=== PATIENT | female | born 1940 | race Caucasian/White ===

== ENCOUNTER 2020-05-15 13:13 | Outpatient (REF) | payer MEDICARE, OTHER, SELFPAY ==
[2020-05-15 16:48] LABS: MANUAL DIFF FLAG NO
[2020-05-15 17:06] LABS: Alanine Aminotransferase 44 U/L (0-31); Albumin Level 4.6 g/dL (3.5-5.0); Alkaline Phosphatase 58 U/L (39-117); Anion Gap 15 (12-20); Aspartate Amino Transferase 55 U/L (5-31); Bilirubin Total 0.5 mg/dL (0.0-1.0); Blood Urea Nitrogen 12 mg/dL (9-16); Calcium 9.4 mg/dL (8.4-10.2); Carbon Dioxide 29 mmol/L (22-29); Chloride 101 mmol/L (96-108); Estimated Glomerular Filt Rate > 60; Glucose Random 141 mg/dL (60-115); Potassium 4.5 mmol/l (3.3-5.1); Sodium 140 mmol/L (135-145); Total Protein 7.8 g/dL (6.5-8.0)
[2020-05-15 17:18] LABS: Basophils Absolute Auto 0.1 X10*3/uL (0.0-0.2); Basophils Percent Auto 0.5 % (0-2); Eosinophils Absolute Auto 0.1 X10*3/uL (0.0-0.4); Eosinophils Percent Auto 1.3 % (0-4); Hematocrit 40.2 % (37-47); Hemoglobin 12.9 g/dl (12.0-16.0); Imm Gran Abs Auto 0.03 X10*3/uL (0.00-0.03); Imm Gran Pct Auto 0.3 % (0.0-0.4); Lymphocytes Absolute Auto 2.3 X10*3/uL (1.2-4.9); Lymphocytes Percent Auto 25.4 % (20-40); Mean Corpuscular HGB Conc 32.1 g/dl (31.0-35.0); Mean Corpuscular Hemoglobin 29.4 pg (27.0-33.0); Mean Corpuscular Volume 91.6 fL (80-98); Monocytes Absolute Auto 0.7 X10*3/uL (0.1-1.2); Monocytes Percent Auto 7.7 % (2-11); Neutrophils Percent Auto 64.8 % (45-73); Platelet Count 243 X10*3/uL (160-400); Red Blood Count 4.39 X10*6/uL (4.20-5.50); Red Cell Distribution Width 14.2 % (11.0-16.0); White Blood Count 9.2 X10*3/uL (4.8-10.8)
[2020-05-15 17:32] LABS: Estimated Average Glucose 174 mg/dL; Hemoglobin A1c % 7.7 %
== END 2020-05-15 13:14 | disposition home or self-care (01) ==
LOC: HO.HMGCLDS 13:13
PROVIDERS: PCP Internal Medicine; Visit Provider Internal Medicine
DX: E11.22 Type 2 diabetes mellitus with diabetic chronic kidney disease (principal); I12.9 Hypertensive chronic kidney disease with stage 1 through stage 4 chronic kidney disease, or unspecified chronic kidney disease; N18.9 Chronic kidney disease, unspecified
CPT/HCPCS: 36415; 80053; 83036; 85025

== ENCOUNTER → 2020-07-09 09:44 | Outpatient (BNVA) | payer MEDICARE, OTHER, SELFPAY | PROVIDERS: PCP Internal Medicine; Visit Provider Surgery | DX: Z85.3 Personal history of malignant neoplasm of breast (principal) | CPT/HCPCS: 99212 ==

== ENCOUNTER → 2020-08-08 10:50 | Outpatient (BNVA) | payer MEDICARE, OTHER, SELFPAY | PROVIDERS: PCP Internal Medicine; Visit Provider Internal Medicine | DX: J30.9 Allergic rhinitis, unspecified (principal); J44.9 Chronic obstructive pulmonary disease, unspecified | CPT/HCPCS: 99212 ==

== ENCOUNTER 2020-08-15 11:10 | Outpatient (REF) | payer MEDICARE, OTHER, SELFPAY ==
[2020-08-15 13:55] LABS: MANUAL DIFF FLAG NO
[2020-08-15 14:00] LABS: Basophils Absolute Auto 0.1 X10*3/uL (0.0-0.2); Basophils Percent Auto 0.7 % (0-2); Eosinophils Absolute Auto 0.3 X10*3/uL (0.0-0.4); Eosinophils Percent Auto 3.6 % (0-4); Hematocrit 36.7 % (37-47); Hemoglobin 11.6 g/dl (12.0-16.0); Imm Gran Abs Auto 0.03 X10*3/uL (0.00-0.03); Imm Gran Pct Auto 0.4 % (0.0-0.4); Lymphocytes Absolute Auto 2.3 X10*3/uL (1.2-4.9); Lymphocytes Percent Auto 31.6 % (20-40); Mean Corpuscular HGB Conc 31.6 g/dl (31.0-35.0); Mean Corpuscular Hemoglobin 27.7 pg (27.0-33.0); Mean Corpuscular Volume 87.6 fL (80-98); Mean Platelet Volume 11.2 fL (9.4-12.3); Monocytes Absolute Auto 0.5 X10*3/uL (0.1-1.2); Monocytes Percent Auto 7.2 % (2-11); Neutrophils Percent Auto 56.5 % (45-73); Platelet Count 216 X10*3/uL (160-400); Red Blood Count 4.19 X10*6/uL (4.20-5.50); White Blood Count 7.1 X10*3/uL (4.8-10.8)
[2020-08-15 14:10] LABS: Estimated Average Glucose 192 mg/dL; Hemoglobin A1c % 8.3 %
[2020-08-15 14:23] LABS: Alanine Aminotransferase 36 U/L (0-31); Albumin Level 4.4 g/dL (3.5-5.0); Alkaline Phosphatase 58 U/L (39-117); Anion Gap 13 (12-20); Aspartate Amino Transferase 50 U/L (5-31); Bilirubin Total 0.5 mg/dL (0.0-1.0); Blood Urea Nitrogen 15 mg/dL (9-16); Calcium 9.5 mg/dL (8.4-10.2); Carbon Dioxide 30 mmol/L (22-29); Chloride 100 mmol/L (96-108); Estimated Glomerular Filt Rate > 60; Glucose Random 188 mg/dL (60-115); Potassium 4.5 mmol/L (3.3-5.1); Sodium 138 mmol/L (135-145); Total Protein 7.5 g/dL (6.5-8.0)
[2020-08-15 14:38] LABS: Creatinine Urine 46.61 mg/dL; Microalbum/Creatinine Ratio Ur 338.9 ug/mg cr
[2020-08-15 14:46] LABS: Free T4 (Free Thyroxine) 0.98 ng/dL (0.71-1.85); Thyroid Stimulating Hormone 1.55 uIU/mL (0.32-4.0)
== END 2020-08-15 11:11 | disposition home or self-care (01) ==
LOC: HO.HMGCLDS 11:10
PROVIDERS: PCP Internal Medicine; Visit Provider Internal Medicine
DX: E11.9 Type 2 diabetes mellitus without complications (principal); E03.9 Hypothyroidism, unspecified; I10 Essential (primary) hypertension
CPT/HCPCS: 36415; 80053; 82043; 83036; 84439; 84443; 85025

== ENCOUNTER 2020-12-11 15:08 | Outpatient (REF) | payer MEDICARE, OTHER, SELFPAY ==
--- NOTE | ~2020-12-11 | MM_ITS ---
EXAMINATION: MM SCREENING DIGITAL BREAST TOMOSYNTHESIS, BILATERAL CLINICAL INFORMATION: Screening. Asymptomatic. History of right breast cancer. COMPARISON: Mammography: 12/08/2019 and studies dating back to 11/30/2014. TECHNIQUE: Digital breast tomosynthesis is performed in both the craniocaudal and mediolateral oblique views along with computer-aided detection (CAD). Synthesized 2D images are generated from the tomosynthesis. FINDINGS: There are scattered areas of fibroglandular density (ACR BI-RADS breast composition Category b). There are no new significant masses, abnormal calcifications, or other abnormalities. Postsurgical change from previous right breast lumpectomy and axillary dissection again seen. No new abnormal dominant masses. Stable circumscribed densities seen about the anterior aspect of the left breast. MM/MM tomosynthesis screening BI IMPRESSION: There are no significant changes from prior study. ASSESSMENT: BI-RADS 2: Benign. RECOMMENDATION: Routine annual mammography screening. This patient's information was entered into a reminder system with a target due date for their next mammogram.
== END 2020-12-11 15:09 | disposition home or self-care (01) ==
LOC: HO.MAMMO 15:08
PROVIDERS: PCP Internal Medicine; Visit Provider Surgery
DX: Z12.31 Encounter for screening mammogram for malignant neoplasm of breast (principal)
CPT/HCPCS: 77063; 77067

== ENCOUNTER 2020-12-12 11:15 | Outpatient (REF) | payer MEDICARE, OTHER, SELFPAY ==
[2020-12-12 14:30] LABS: Anion Gap 13 (12-20); Blood Urea Nitrogen 11 mg/dL (9-16); Calcium 9.3 mg/dL (8.4-10.2); Carbon Dioxide 27 mmol/L (22-29); Chloride 103 mmol/L (96-108); Estimated Glomerular Filt Rate > 60; Glucose Random 210 mg/dL (60-115); Potassium 4.1 mmol/L (3.3-5.1); Sodium 139 mmol/L (135-145)
[2020-12-12 14:38] LABS: Estimated Average Glucose 212 mg/dL
== END 2020-12-12 11:16 | disposition home or self-care (01) ==
LOC: HO.HMGCLDS 11:15
PROVIDERS: PCP Internal Medicine; Visit Provider Internal Medicine
DX: E11.9 Type 2 diabetes mellitus without complications (principal); I10 Essential (primary) hypertension
CPT/HCPCS: 36415; 80048; 83036

== ENCOUNTER → 2020-12-31 09:43 | Outpatient (BNVA) | payer MEDICARE, OTHER, SELFPAY | PROVIDERS: PCP Internal Medicine; Referring Provider Internal Medicine; Visit Provider Surgery | DX: Z85.3 Personal history of malignant neoplasm of breast (principal); Z87.891 Personal history of nicotine dependence | CPT/HCPCS: 99212 ==

== ENCOUNTER → 2021-01-30 10:11 | Outpatient (BNVA) | payer MEDICARE, OTHER, SELFPAY | PROVIDERS: PCP Internal Medicine; Visit Provider Internal Medicine | DX: J44.9 Chronic obstructive pulmonary disease, unspecified (principal); J30.9 Allergic rhinitis, unspecified; Z79.899 Other long term (current) drug therapy | CPT/HCPCS: 99212 ==

== ENCOUNTER 2021-03-13 09:57 | Outpatient (REF) | payer MEDICARE, OTHER, SELFPAY ==
[2021-03-13 11:26] LABS: MANUAL DIFF FLAG NO
[2021-03-13 11:37] LABS: Basophils Percent Auto 0.5 % (0-2); Eosinophils Absolute Auto 0.3 X10*3/uL (0.0-0.4); Eosinophils Percent Auto 4.1 % (0-4); Hematocrit 32.5 % (37-47); Hemoglobin 9.8 g/dl (12.0-16.0); Imm Gran Abs Auto 0.02 X10*3/uL (0.00-0.03); Imm Gran Pct Auto 0.3 % (0.0-0.4); Lymphocytes Absolute Auto 1.8 X10*3/uL (1.2-4.9); Lymphocytes Percent Auto 26.4 % (20-40); Mean Corpuscular HGB Conc 30.2 g/dl (31.0-35.0); Mean Corpuscular Hemoglobin 24.5 pg (27.0-33.0); Mean Corpuscular Volume 81.3 fL (80-98); Mean Platelet Volume 10.8 fL (9.4-12.3); Monocytes Absolute Auto 0.6 X10*3/uL (0.1-1.2); Monocytes Percent Auto 8.4 % (2-11); Neutrophils Percent Auto 60.3 % (45-73); Platelet Count 214 X10*3/uL (160-400); Red Cell Distribution Width 15.9 % (11.0-16.0); White Blood Count 6.6 X10*3/uL (4.8-10.8)
[2021-03-13 11:49] LABS: Estimated Average Glucose 174 mg/dL; Hemoglobin A1c % 7.7 %
[2021-03-13 12:00] LABS: Anion Gap 13 (12-20); Blood Urea Nitrogen 9 mg/dL (9-16); Calcium 9.4 mg/dL (8.4-10.2); Carbon Dioxide 27 mmol/L (22-29); Chloride 102 mmol/L (96-108); Estimated Glomerular Filt Rate > 60; Glucose Random 173 mg/dL (60-115); Potassium 4.2 mmol/L (3.3-5.1); Sodium 138 mmol/L (135-145)
[2021-03-13 12:11] LABS: Thyroid Stimulating Hormone 1.44 uIU/mL (0.32-4.0)
== END 2021-03-13 09:58 | disposition home or self-care (01) ==
LOC: HO.HMGCLDS 09:57
PROVIDERS: PCP Internal Medicine; Visit Provider Internal Medicine
DX: E11.9 Type 2 diabetes mellitus without complications (principal); I10 Essential (primary) hypertension; E03.9 Hypothyroidism, unspecified
CPT/HCPCS: 36415; 80048; 83036; 84439; 84443; 85025

== ENCOUNTER 2021-05-22 10:44 | Outpatient (REF) | payer MEDICARE, OTHER, SELFPAY ==
[2021-05-22 13:38] LABS: MANUAL DIFF FLAG NO
[2021-05-22 13:42] LABS: Basophils Absolute Auto 0.1 X10*3/uL (0.0-0.2); Basophils Percent Auto 0.8 % (0-2); Eosinophils Absolute Auto 0.2 X10*3/uL (0.0-0.4); Eosinophils Percent Auto 2.6 % (0-4); Hematocrit 31.3 % (37.0-47.0); Hemoglobin 9.2 g/dl (12.0-16.0); Imm Gran Abs Auto 0.02 X10*3/uL (0.00-0.03); Imm Gran Pct Auto 0.3 % (0.0-0.4); Lymphocytes Absolute Auto 1.8 X10*3/uL (1.2-4.9); Lymphocytes Percent Auto 23.8 % (20-40); Mean Corpuscular HGB Conc 29.4 g/dl (31.0-35.0); Mean Corpuscular Hemoglobin 22.9 pg (27.0-33.0); Mean Corpuscular Volume 77.9 fL (80.0-98.0); Mean Platelet Volume 11.5 fL (9.4-12.3); Monocytes Absolute Auto 0.6 X10*3/uL (0.1-1.2); Monocytes Percent Auto 8.2 % (2-11); Neutrophils Absolute Auto 4.7 x10*3/uL (2.0-8.3); Neutrophils Percent Auto 64.3 % (45-73); Platelet Count 239 X10*3/uL (160-400); Red Blood Count 4.02 X10*6/uL (4.20-5.50); Red Cell Distribution Width 15.9 % (11.0-16.0); White Blood Count 7.3 X10*3/uL (4.8-10.8)
[2021-05-22 14:22] LABS: Creatinine Urine 150.24 mg/dL; Microalbum/Creatinine Ratio Ur 85.1 ug/mg cr
[2021-05-22 14:30] LABS: Alanine Aminotransferase 33 U/L (0-31); Albumin Level 4.4 g/dL (3.5-5.0); Alkaline Phosphatase 55 U/L (39-117); Anion Gap 13 (12-20); Aspartate Amino Transferase 40 U/L (5-31); Bilirubin Total 0.8 mg/dL (0.0-1.0); Blood Urea Nitrogen 15 mg/dL (9-16); Chloride 102 mmol/L (96-108); Estimated Glomerular Filt Rate > 60; Glucose Random 206 mg/dL (60-115); Iron 22 mcg/dL (30-160); Percent Iron Saturation 5 % (15-50); Potassium 3.9 mmol/L (3.3-5.1); Sodium 138 mmol/L (135-145); Total Iron Binding Capacity 486 mcg/dL (228-428); Total Protein 7.5 g/dL (6.5-8.0); Unsaturated Iron Binding 464 ug/dL
[2021-05-22 14:37] LABS: Carbon Dioxide 27 mmol/L (22-29)
[2021-05-22 14:49] LABS: Estimated Average Glucose 192 mg/dL; Hemoglobin A1c % 8.3 %
[2021-05-22 15:06] LABS: Vitamin B12 498 pg/mL (200-900)
== END 2021-05-22 10:45 | disposition home or self-care (01) ==
LOC: HO.HMGCLDS 10:44
PROVIDERS: PCP Internal Medicine; Visit Provider Internal Medicine
DX: E11.9 Type 2 diabetes mellitus without complications (principal); D64.9 Anemia, unspecified; J44.9 Chronic obstructive pulmonary disease, unspecified; R53.83 Other fatigue
CPT/HCPCS: 36415; 80053; 82043; 82607; 83036; 83540; 85025; 86140

== ENCOUNTER 2021-05-27 11:20 | Outpatient (REF) | payer MEDICARE, OTHER, SELFPAY ==
--- NOTE | ~2021-05-27 | XR_ITS ---
EXAMINATION: XR CHEST CLINICAL INFORMATION: COPD, shortness of breath, cough for 2 weeks. Fatigue on exertion. COMPARISON: Chest radiographs 11/28/2019, 07/11/2019, CT chest noncontrast 12/04/2019 TECHNIQUE: 2 views of the chest were obtained. FINDINGS: Heart is within limits of normal size. The vascularity is normal. There is no airspace consolidation or groundglass opacity or effusion. Chronic pleural-parenchymal scarring is again noted anterior lateral mid right chest similar to prior exams. No interval pleural reaction. The hilar and mediastinal contours are normal. No acute bony abnormality. Surgical clips right axilla are again seen. XR/XR chest 2V IMPRESSION: No acute intrathoracic disease.
== END 2021-05-27 11:21 | disposition home or self-care (01) ==
LOC: HO.XRAY 11:20
PROVIDERS: Visit Provider Internal Medicine
DX: Z13.89 Encounter for screening for other disorder (principal)
CPT/HCPCS: 71046

== ENCOUNTER 2021-05-27 13:54 | Outpatient (REF) | payer MEDICARE, OTHER, SELFPAY ==
[2021-05-27 14:38] LABS: Influenza A PCR NEGATIVE (Negative); Influenza B PCR NEGATIVE (Negative); Resp Syncy Virus RNA Qual PCR NEGATIVE (Negative); SARS COV2 PCR INHOUSE NEGATIVE (Negative)
== END 2021-05-27 13:55 | disposition home or self-care (01) ==
LOC: HO.LNP 13:54
PROVIDERS: Visit Provider Internal Medicine
DX: Z20.822 Contact with and (suspected) exposure to COVID-19 (principal); R06.02 Shortness of breath; R05.9 Cough, unspecified
CPT/HCPCS: 0241U; 71046

== ENCOUNTER → 2021-07-03 08:39 | Outpatient (BNVA) | payer MEDICARE, OTHER, SELFPAY | PROVIDERS: PCP Internal Medicine; Referring Provider Internal Medicine; Visit Provider Surgery | DX: Z85.3 Personal history of malignant neoplasm of breast (principal) | CPT/HCPCS: 99212 ==

== ENCOUNTER → 2021-07-14 10:13 | Outpatient (BNV) | payer MEDICARE, OTHER, SELFPAY | PROVIDERS: PCP Internal Medicine; Visit Provider Internal Medicine Medical Oncology | DX: Z85.3 Personal history of malignant neoplasm of breast (principal); M85.80 Other specified disorders of bone density and structure, unspecified site; D64.9 Anemia, unspecified; Z92.3 Personal history of irradiation | CPT/HCPCS: 99213; 99214 ==

== ENCOUNTER 2021-07-16 11:37 | Outpatient (REF) | payer MEDICARE, OTHER, SELFPAY | END 2021-07-16 11:38 | disposition home or self-care (01) | LOC: HO.MDS 11:37 | PROVIDERS: PCP Internal Medicine; Visit Provider Internal Medicine Medical Oncology | DX: D50.9 Iron deficiency anemia, unspecified (principal) | CPT/HCPCS: 96365; J2916 ==

== ENCOUNTER 2021-07-24 10:00 | Outpatient (REF) | payer MEDICARE, OTHER, SELFPAY | END 2021-07-24 10:01 | disposition home or self-care (01) | LOC: HO.MDS 10:00 | PROVIDERS: PCP Internal Medicine; Visit Provider Internal Medicine Medical Oncology | DX: D50.9 Iron deficiency anemia, unspecified (principal); Z85.3 Personal history of malignant neoplasm of breast | CPT/HCPCS: 96365; J2916 ==

== ENCOUNTER → 2021-07-29 09:53 | Outpatient (BNVA) | payer MEDICARE, OTHER, SELFPAY | PROVIDERS: PCP Internal Medicine; Visit Provider Internal Medicine | DX: J44.9 Chronic obstructive pulmonary disease, unspecified (principal); J30.9 Allergic rhinitis, unspecified | CPT/HCPCS: 99212 ==

== ENCOUNTER 2021-07-31 09:43 | Outpatient (REF) | payer MEDICARE, OTHER, SELFPAY | END 2021-07-31 09:44 | disposition home or self-care (01) | LOC: HO.MDS 09:43 | PROVIDERS: PCP Internal Medicine; Visit Provider Internal Medicine Medical Oncology | DX: D50.9 Iron deficiency anemia, unspecified (principal) | CPT/HCPCS: 96365; J2916 ==

== ENCOUNTER 2021-08-07 12:19 | Outpatient (REF) | payer MEDICARE, OTHER, SELFPAY ==
[2021-08-07 14:21] LABS: Basophils Percent Auto 0.3 % (0-2); Eosinophils Percent Auto 0.1 % (0-4); Hematocrit 36.1 % (37.0-47.0); Hemoglobin 10.9 g/dl (12.0-16.0); Imm Gran Abs Auto 0.03 X10*3/uL (0.00-0.03); Imm Gran Pct Auto 0.4 % (0.0-0.4); Lymphocytes Absolute Auto 0.5 X10*3/uL (1.2-4.9); Lymphocytes Percent Auto 6.4 % (20-40); MANUAL DIFF FLAG SCAN; Mean Corpuscular HGB Conc 30.2 g/dl (31.0-35.0); Mean Corpuscular Hemoglobin 24.4 pg (27.0-33.0); Mean Corpuscular Volume 80.9 fL (80.0-98.0); Mean Platelet Volume 10.2 fL (9.4-12.3); Monocytes Absolute Auto 0.1 X10*3/uL (0.1-1.2); Monocytes Percent Auto 0.7 % (2-11); Neutrophils Absolute Auto 6.5 x10*3/uL (2.0-8.3); Neutrophils Percent Auto 92.1 % (45-73); Platelet Count 178 X10*3/uL (160-400); Red Blood Count 4.46 X10*6/uL (4.20-5.50); SCAN SMEAR FLAG 1
[2021-08-07 14:43] LABS: SLIDE REVIEW VERIFIED
== END 2021-08-07 12:20 | disposition home or self-care (01) ==
LOC: HO.MDS 12:19
PROVIDERS: PCP Internal Medicine; Visit Provider Internal Medicine Medical Oncology
DX: D50.9 Iron deficiency anemia, unspecified (principal)
CPT/HCPCS: 36415; 85025; 96365; J2916

== ENCOUNTER 2021-08-14 13:08 | Outpatient (REF) | payer MEDICARE, OTHER, SELFPAY | END 2021-08-14 13:09 | disposition home or self-care (01) | LOC: HO.MDS 13:08 | PROVIDERS: PCP Internal Medicine; Visit Provider Internal Medicine Medical Oncology | DX: D50.9 Iron deficiency anemia, unspecified (principal) | CPT/HCPCS: 96365; J2916 ==

== ENCOUNTER 2021-08-20 09:11 | Day surgery (SDC) | payer MEDICARE, OTHER, SELFPAY ==
[2021-08-15 10:01] VITALS: BMI 33.0
[2021-08-20 09:31] VITALS: BP 155/75; PULSE 92; RESP 16; TEMP 36.9; O2SAT 96
[2021-08-20 09:46] LABS: Glucose, Whole Blood 182 mg/dL (60-115)
--- NOTE | 2021-08-20 10:23 | HO.ANESPROP2 ---
HPI - Anesthesia Eval Consult details Narrative: 80 yo female patient for EGD, Colonoscopy PMF Active Problems Active Problems: All Active Problems (Updated 08/15/21 @ 10:05 by Kennedi Osborne RN) COPD (chronic obstructive pulmonary disease) (Acute) Allergic rhinitis (Acute) History of right breast cancer (Acute) Increased BMI Past Medical History Medical History Allergic rhinitis COPD (chronic obstructive pulmonary disease) COVID-19 vaccine series completed Diabetes Elevated cholesterol GERD (gastroesophageal reflux disease) History of right breast cancer HTN (hypertension) Hx of nephrolithotomy with removal of calculi Hypothyroid Iron deficiency anemia Family History Family History Father Lung cancer Mother Cancer of unknown origin Sister Lung cancer, Onset Age: 57 Sister Melanoma, Onset Age: 44 Sister Lung cancer, Onset Age: 70 Brother Lung cancer Brother Lung cancer Son Melanoma Family history of problems with anesthesia: No Surgical History Surgical History History of cholecystectomy (1999) History of colonoscopy (2008) History of esophagogastroduodenoscopy (EGD) History of excision of lesion (01/2001) History of left breast biopsy (1992) History of lumpectomy of right breast (07/01/07) History of vocal cord polypectomy (08/10/12) Hx of cataract extraction Hx of cystoscopy Hx of right breast biopsy (10/27/03) History of Problems with Anesthesia: No Social History Social History Are you a primary post anesthesia care unit nurse to a significant other at home: No Do you presently have visiting nurse or other home services: No Alcohol intake: never Patient Tobacco Use Status: Former Tobacco user Tobacco use type: Cigarette Use of substances other than those prescribed or required for medical reasons: No Have you been hit, kicked, punched, or otherwise hurt by someone within the past year? If so, by whom?: No Are you DNR?: Yes Advance Directives: No Advance Directives Information Provided: Yes Advance Directives on File: No Recently lost weight without trying: No Eating poorly because of decreased appetite: No Nutrition Risks: Surgical patient >75years Poor oral hygiene: No (upper & lower full denture) Meds Allergies Allergy/AdvReac Type Severity Reaction Status Date / Time baclofen Allergy Intermediate rash/swelli Verified 08/15/21 10:01 ng beet Allergy Intermediate tongue Verified 08/15/21 10:01 swelling celecoxib [From Celebrex] Allergy Intermediate rash/swelli Verified 08/15/21 10:01 ng Home Medications Medication Instructions Recorded Confirmed Last Taken Type fexofenadine 180 mg tablet 180 mg PO DAILY 07/09/20 08/15/21 Unknown History (Destinee Allergy) levothyroxine 75 mcg tablet 75 mcg PO DAILY 07/09/20 08/15/21 08/20/21 History amlodipine 5 mg tablet 5 mg PO DAILY tab 08/08/20 08/15/21 08/20/21 History gabapentin 300 mg capsule 300 mg PO BID cap 08/08/20 08/15/21 08/20/21 History glipizide 2.5 mg tablet, extended 5 mg PO BID tab 08/08/20 08/15/21 Unknown History release 24 hr metoprolol succinate 50 mg 50 mg PO DAILY tab 08/08/20 08/15/21 08/20/21 History tablet,extended release 24 hr omeprazole 20 mg capsule,delayed 20 mg PO DAILY cap 08/08/20 08/15/21 Unknown History release simvastatin 20 mg tablet 20 mg PO DAILY tab 08/08/20 08/15/21 Unknown History budesonide 160 mcg-glycopyr 9 2 inh INHALATION QAM 08/15/21 08/15/21 08/20/21 History mcg-formot 4.8 mcg/actuation HFA inhaler (Breztri Aerosphere) irbesartan 150 mg tablet 1 tab PO DAILY 08/15/21 08/15/21 Unknown History montelukast 10 mg tablet 10 mg PO BEDTIME 08/15/21 08/15/21 Unknown History Exam Exam Date and Time: August 20, 2021 1023 Height,Weight and Vital Signs: Height 5 ft 2 in Weight 82.1 kg Last Vital Signs Temp 98.4 F 08/20/21 09:31 Pulse 92 08/20/21 09:31 Resp 16 08/20/21 09:31 BP 155/75 H 08/20/21 09:31 Pulse Ox 96 08/20/21 09:31 Pertinent Lab Results Pertinent Lab Results: Laboratory Tests 08/20/21 09:36 POC Glucose 182 H Airway Mallampati Class: II TM Dist: >3cm Neck ROM: Full Denture: Upper and Lower Heart: RRR Lungs: CTAB Assessment and Plan Assessment Anesthesia Assessment: Anesthesia Plan Discussed and Chart Reviewed Final Anesthetic Review Family History of Problems with Anesthesia: No History of Problems with Anesthesia: No NPO: Yes ASA Class: III Final Preanesthetic Review: No Changes in Pt Med Stat, Meds/Allgs Chart Reviewed, Consent Obtained/Reviewed and Anes Risks/Benef Reviewed Patient Risk: Intermediate Procedure Risk: Low Assessment/Block/Sedation in SS: Assess/Block/Sedation-SS Anesthetic Plan Anesthetic Plan: MAC: Disposition: Standard PACU
[2021-08-20 11:56] VITALS: BP 117/60; PULSE 84; RESP 18; TEMP 36.1; O2SAT 93
--- NOTE | 2021-08-20 11:59 | PM.OP ---
Brief Operative Note Date of Service: 08/20/21 Pre-op diagnosis: Iron deficiency anemia Post-op diagnosis: other (Hiatal hernia, R/O celiac disease, Colon polyps) Procedure: EGD with biopsy, Colonoscopy to cecum and TI with hot snare polypectomy at 30cm with Resolution clips x 3, and bx/ removal of polyp Surgeon: Aaron Sotll Anesthesia: MAC Was an Wood Hacker used for this Procedure?: No Estimated blood loss (mL): 2.0 Pathology: other (A. Descending duodenum B. Cecal polyp C. Polyp at 30cm) Condition: stable Disposition: PACU
[2021-08-20 12:11] VITALS: BP 144/68; PULSE 71; RESP 18; TEMP 36.1; O2SAT 94
--- NOTE | 2021-08-20 12:56 | OP_ITS ---
SURGEON: Aaron Stoll MD INDICATIONS: The patient presents for evaluation of iron-deficiency anemia. Full consent was obtained from her for both procedures, including risks of bleeding and perforation. PREOPERATIVE DIAGNOSIS: Iron deficiency anemia. POSTOPERATIVE DIAGNOSIS: PROCEDURE PERFORMED: Esophagogastroduodenoscopy with biopsies, and colonoscopy to the cecum terminal ileum with hot snare polypectomy. ESTIMATED BLOOD LOSS: COMPLICATIONS: ANESTHESIA: Monitored anesthesia care. ASSISTANTS: SPECIMENS: POSTOPERATIVE DIAGNOSES: Iron deficiency anemia, rule out celiac disease, small hiatal hernia, colon polyp, diverticulosis, and internal hemorrhoids. DESCRIPTION OF PROCEDURE: The patient was placed in the left lateral decubitus position. The Olympus video gastroscope was passed in the posterior oropharynx and upper esophagus under direct vision. The scope was passed slowly to the distal esophagus. The gastroesophageal junction appeared normal at 35 cm. There was no sign of any esophagitis nor mass. The scope entered into the stomach. There was a small hiatal hernia. The scope was advanced to the pylorus and the duodenum was cannulated to the descending portion. The duodenum including the bulb appeared normal without mass or ulceration. Biopsies were obtained from the 2nd and 3rd portions of duodenum to rule out celiac disease. The scope was withdrawn back in the stomach. The gastric antrum and body appeared normal with good peristalsis. The scope was retroflexed visualizing the proximal stomach carefully, which appeared normal, without any sign of mass or ulceration. Scope was straightened and withdrawn back into the esophagus. The esophageal mucosa appeared normal. Scope was withdrawn from the patient. She was turned around for colonoscopy. The digital rectal exam revealed no abnormalities. The Olympus video pediatric colonoscope was entered into the rectum and advanced easily to the cecum. Once in the cecum I did identify a normal-appearing cecal pouch other than a 3 or 4 mm polyp, which was biopsied and completely removed with the cold biopsy forceps. The terminal ileum was cannulated and appeared normal. The scope was withdrawn back in the cecum. The cecum otherwise appeared normal. The scope was then slowly withdrawn assessing all mucosal surfaces carefully. Preparation for the most part was very good, but there was some liquid stool and mucus in the ascending colon that was irrigated and suctioned away as best as possible. I did not visualize any underlying mucosal abnormalities such as colitis, angiodysplasias, nor polyps. The only polyp I visualized was in the sigmoid colon at 30 cm. This was approximately 10 mm in size on a short stalk and was removed by hot snare polypectomy. This was recovered by suction. The polypectomy site did not reveal any residual polyp, but did have some persistent oozing that was controlled with 3 Resolution Clips with good deployment and ultimately good hemostasis. There was a mild amount of sigmoid diverticulosis. In the rectum, scope was retroflexed visualizing some small internal hemorrhoids, but no other pathology. The rectal mucosa appeared normal. The scope was straightened and withdrawn from the patient. She tolerated the procedure well and was returned to recovery area in stable condition. IMPRESSION: 1. Colon polyp, status post hot snare polypectomy. 2. Cecal polyp, status post biopsy removal. 3. Hiatal hernia. 4. Rule out celiac disease. 5. Diverticulosis. 6. Internal hemorrhoids. PLAN: The results of the pathology will be checked. At this point, this would not account for her anemia and she may need further evaluation with a small bowel video capsule study. She will continue oral iron as best as possible and receive IV iron as needed with Dr. Guzman. I will be in touch with her in regard to office followup and setting up a small bowel video capsule study as needed. She was advised to stay off all aspirin and NSAIDs long-term. This has been discussed with her . MD GOLDEN Borja/KEEGAN / [id number] MTDD
== END 2021-08-20 12:39 | disposition home or self-care (01) ==
PROVIDERS: PCP Internal Medicine; Visit Provider Internal Medicine
PROC: (CPT 45385; principal; 2021-08-20 10:40)
DX: D50.9 Iron deficiency anemia, unspecified (principal); D12.5 Benign neoplasm of sigmoid colon; K63.5 Polyp of colon; K57.30 Diverticulosis of large intestine without perforation or abscess without bleeding; K64.8 Other hemorrhoids; K21.9 Gastro-esophageal reflux disease without esophagitis; K44.9 Diaphragmatic hernia without obstruction or gangrene; J44.9 Chronic obstructive pulmonary disease, unspecified; M85.80 Other specified disorders of bone density and structure, unspecified site; I10 Essential (primary) hypertension; E11.9 Type 2 diabetes mellitus without complications; E03.9 Hypothyroidism, unspecified; E78.5 Hyperlipidemia, unspecified; Z79.84 Long term (current) use of oral hypoglycemic drugs; Z79.51 Long term (current) use of inhaled steroids; Z79.899 Other long term (current) drug therapy; Z88.8 Allergy status to other drugs, medicaments and biological substances; Z85.3 Personal history of malignant neoplasm of breast; Z87.442 Personal history of urinary calculi; Z90.49 Acquired absence of other specified parts of digestive tract; Z87.891 Personal history of nicotine dependence
CPT/HCPCS: 45385; 45380; 43239; 82947; 88305

== ENCOUNTER 2021-08-21 13:12 | Outpatient (REF) | payer MEDICARE, OTHER, SELFPAY | END 2021-08-21 13:13 | disposition home or self-care (01) | LOC: HO.MDS 13:12 | PROVIDERS: PCP Internal Medicine; Visit Provider Internal Medicine Medical Oncology | DX: D50.9 Iron deficiency anemia, unspecified (principal) | CPT/HCPCS: 96365; J2916 ==

== ENCOUNTER 2021-08-28 13:12 | Outpatient (REF) | payer MEDICARE, OTHER, SELFPAY | END 2021-08-28 13:13 | disposition home or self-care (01) | LOC: HO.MDS 13:12 | PROVIDERS: PCP Internal Medicine; Visit Provider Internal Medicine Medical Oncology | DX: D50.9 Iron deficiency anemia, unspecified (principal) | CPT/HCPCS: 96365; J2916 ==

== ENCOUNTER 2021-09-04 13:02 | Outpatient (REF) | payer MEDICARE, OTHER, SELFPAY ==
[2021-09-04 14:13] LABS: MANUAL DIFF FLAG NO
[2021-09-04 14:16] LABS: Basophils Percent Auto 0.6 % (0-2); Eosinophils Absolute Auto 0.3 X10*3/uL (0.0-0.4); Eosinophils Percent Auto 3.6 % (0-4); Hematocrit 39.9 % (37.0-47.0); Hemoglobin 12.4 g/dl (12.0-16.0); Imm Gran Abs Auto 0.02 X10*3/uL (0.00-0.03); Imm Gran Pct Auto 0.3 % (0.0-0.4); Lymphocytes Percent Auto 29.3 % (20-40); Mean Corpuscular HGB Conc 31.1 g/dl (31.0-35.0); Mean Corpuscular Hemoglobin 27.4 pg (27.0-33.0); Mean Corpuscular Volume 88.3 fL (80.0-98.0); Mean Platelet Volume 10.5 fL (9.4-12.3); Monocytes Absolute Auto 0.4 X10*3/uL (0.1-1.2); Monocytes Percent Auto 6.3 % (2-11); Neutrophils Absolute Auto 4.2 x10*3/uL (2.0-8.3); Neutrophils Percent Auto 59.9 % (45-73); Platelet Count 162 X10*3/uL (160-400); Red Blood Count 4.52 X10*6/uL (4.20-5.50); Red Cell Distribution Width 21.7 % (11.0-16.0); White Blood Count 6.9 X10*3/uL (4.8-10.8)
== END 2021-09-04 13:03 | disposition home or self-care (01) ==
LOC: HO.MDS 13:02
PROVIDERS: PCP Internal Medicine; Visit Provider Internal Medicine Medical Oncology
DX: D50.9 Iron deficiency anemia, unspecified (principal)
CPT/HCPCS: 36415; 85025; 96365; J2916

== ENCOUNTER 2021-10-01 13:20 | Outpatient (REF) | payer MEDICARE, OTHER, SELFPAY ==
[2021-10-01 16:33] LABS: MANUAL DIFF FLAG NO
[2021-10-01 16:39] LABS: Basophils Absolute Auto 0.1 X10*3/uL (0.0-0.2); Basophils Percent Auto 0.8 % (0-2); Eosinophils Absolute Auto 0.3 X10*3/uL (0.0-0.4); Eosinophils Percent Auto 3.4 % (0-4); Hematocrit 40.9 % (37.0-47.0); Hemoglobin 13.4 g/dl (12.0-16.0); Imm Gran Abs Auto 0.01 X10*3/uL (0.00-0.03); Imm Gran Pct Auto 0.1 % (0.0-0.4); Lymphocytes Absolute Auto 2.1 X10*3/uL (1.2-4.9); Mean Corpuscular HGB Conc 32.8 g/dl (31.0-35.0); Mean Corpuscular Hemoglobin 29.1 pg (27.0-33.0); Mean Corpuscular Volume 88.9 fL (80.0-98.0); Mean Platelet Volume 11.2 fL (9.4-12.3); Monocytes Absolute Auto 0.6 X10*3/uL (0.1-1.2); Monocytes Percent Auto 7.5 % (2-11); Neutrophils Absolute Auto 4.8 x10*3/uL (2.0-8.3); Neutrophils Percent Auto 61.2 % (45-73); Platelet Count 204 X10*3/uL (160-400); Red Cell Distribution Width 18.6 % (11.0-16.0); White Blood Count 7.9 X10*3/uL (4.8-10.8)
[2021-10-01 16:51] LABS: Iron 50 mcg/dL (30-160); Percent Iron Saturation 14 % (15-50); Total Iron Binding Capacity 348 mcg/dL (228-428); Unsaturated Iron Binding 298 ug/dL
[2021-10-01 17:14] LABS: Ferritin 65 ng/mL (10-250)
== END 2021-10-01 13:21 | disposition home or self-care (01) ==
LOC: HO.HMGCLDS 13:20
PROVIDERS: PCP Internal Medicine; Visit Provider Internal Medicine
DX: D50.9 Iron deficiency anemia, unspecified (principal)
CPT/HCPCS: 36415; 82728; 83540; 85025

== ENCOUNTER 2021-10-28 09:23 | Outpatient (REF) | payer MEDICARE, OTHER, SELFPAY ==
[2021-10-28 11:43] LABS: Estimated Average Glucose 200 mg/dL; Hemoglobin A1c % 8.6 %
[2021-10-28 11:53] LABS: Alanine Aminotransferase 33 U/L (0-31); Albumin Level 4.2 g/dL (3.5-5.0); Alkaline Phosphatase 60 U/L (39-117); Anion Gap 14 (12-20); Aspartate Amino Transferase 45 U/L (5-31); Bilirubin Total 0.9 mg/dL (0.0-1.0); Blood Urea Nitrogen 12 mg/dL (9-16); Calcium 10.2 mg/dL (8.4-10.2); Carbon Dioxide 29 mmol/L (22-29); Chloride 99 mmol/L (96-108); Estimated Glomerular Filt Rate > 60; Glucose Random 203 mg/dL (60-115); Potassium 4.5 mmol/L (3.3-5.1); Sodium 137 mmol/L (135-145); Total Protein 7.4 g/dL (6.5-8.0)
[2021-10-28 14:37] LABS: Creatinine Urine 89.27 mg/dL
== END 2021-10-28 09:24 | disposition home or self-care (01) ==
LOC: HO.HMGCLDS 09:23
PROVIDERS: Visit Provider Internal Medicine
DX: E11.9 Type 2 diabetes mellitus without complications (principal); K21.9 Gastro-esophageal reflux disease without esophagitis; J44.9 Chronic obstructive pulmonary disease, unspecified; I10 Essential (primary) hypertension
CPT/HCPCS: 36415; 80053; 82043; 83036

== ENCOUNTER → 2021-12-16 15:39 | Outpatient (BNVA) | payer MEDICARE, OTHER, SELFPAY | PROVIDERS: PCP Internal Medicine; Visit Provider Internal Medicine | DX: J44.9 Chronic obstructive pulmonary disease, unspecified (principal); J30.9 Allergic rhinitis, unspecified; Z79.899 Other long term (current) drug therapy | CPT/HCPCS: 99212 ==

== ENCOUNTER 2021-12-18 09:13 | Outpatient (REF) | payer MEDICARE, OTHER, SELFPAY ==
--- NOTE | ~2021-12-18 | MM_ITS ---
EXAMINATION: MM SCREENING DIGITAL BREAST TOMOSYNTHESIS, BILATERAL CLINICAL INFORMATION: Right lumpectomy, 2008. Additional benign right breast surgery 05/20/2014. Due for yearly. COMPARISON: Mammography: 12/11/2020, 12/08/2019, 11/28/2018, 11/26/2017 TECHNIQUE: Digital breast tomosynthesis is performed in both the craniocaudal and mediolateral oblique views along with computer-aided detection (CAD). Synthesized 2D images are generated from the tomosynthesis. Additional left MLO view is provided. FINDINGS: There are scattered areas of fibroglandular density (ACR BI-RADS breast composition Category b). Parenchymal pattern is similar to prior studies. There are post surgical changes again seen on the right with reduced breast size and scarring and right axillary clips. Left breast has stable smooth nodularity anterior breasts. Neither breast shows interval mass or architectural abnormality or abnormal calcifications. No significant changes. MM/MM tomosynthesis screening BI IMPRESSION: -No significant changes from prior exams. -Postsurgical changes right breast. ASSESSMENT: BI-RADS 2: Benign RECOMMENDATION: Routine annual mammography screening. This patient's information was entered into a reminder system with a target due date for their next mammogram.
== END 2021-12-18 09:14 | disposition home or self-care (01) ==
LOC: HO.MAMMO 09:13
PROVIDERS: Visit Provider Internal Medicine
DX: Z12.31 Encounter for screening mammogram for malignant neoplasm of breast (principal)
CPT/HCPCS: 77063; 77067

== ENCOUNTER 2021-12-23 12:00 | Outpatient (REF) | payer MEDICARE, OTHER, SELFPAY ==
--- NOTE | ~2021-12-23 | XR_ITS ---
EXAMINATION: XR CHEST CLINICAL INFORMATION: Cough, wheezing. Right lumpectomy 2007. COMPARISON: Chest radiographs 05/27/2021, 11/28/2019, CT chest 12/04/2019. TECHNIQUE: 2 views of the chest were obtained. FINDINGS: There is no acute intrathoracic disease. No hyperinflation, airspace consolidation, or effusion. Again, there is pleural-parenchymal scarring periphery right midlung zone. There is mild mamillation right anterior hemidiaphragm again seen. Heart size normal. The hilar and mediastinal contours and bony structures are unremarkable. XR/XR chest 2V IMPRESSION: -No infiltrate, hyperinflation, or effusion. -Chronic pleural-parenchymal scarring peripheral right zone.
[2021-12-23 13:51] LABS: MANUAL DIFF FLAG NO
[2021-12-23 14:03] LABS: Basophils Absolute Auto 0.1 X10*3/uL (0.0-0.2); Basophils Percent Auto 0.6 % (0-2); Eosinophils Absolute Auto 0.5 X10*3/uL (0.0-0.4); Eosinophils Percent Auto 5.6 % (0-4); Hematocrit 42.7 % (37.0-47.0); Hemoglobin 14.5 g/dl (12.0-16.0); Imm Gran Abs Auto 0.03 X10*3/uL (0.00-0.03); Imm Gran Pct Auto 0.4 % (0.0-0.4); Lymphocytes Absolute Auto 2.2 X10*3/uL (1.2-4.9); Lymphocytes Percent Auto 26.9 % (20-40); Mean Corpuscular Hemoglobin 31.4 pg (27.0-33.0); Mean Corpuscular Volume 92.4 fL (80.0-98.0); Mean Platelet Volume 10.9 fL (9.4-12.3); Monocytes Absolute Auto 0.7 X10*3/uL (0.1-1.2); Monocytes Percent Auto 8.2 % (2-11); Neutrophils Absolute Auto 4.8 x10*3/uL (2.0-8.3); Neutrophils Percent Auto 58.3 % (45-73); Platelet Count 177 X10*3/uL (160-400); Red Blood Count 4.62 X10*6/uL (4.20-5.50); Red Cell Distribution Width 13.8 % (11.0-16.0); White Blood Count 8.2 X10*3/uL (4.8-10.8)
[2021-12-23 14:15] LABS: Alanine Aminotransferase 34 U/L (0-31); Albumin Level 4.4 g/dL (3.5-5.0); Alkaline Phosphatase 61 U/L (39-117); Anion Gap 14 (12-20); Aspartate Amino Transferase 46 U/L (5-31); Bilirubin Total 0.8 mg/dL (0.0-1.0); Blood Urea Nitrogen 10 mg/dL (9-16); Calcium 9.3 mg/dL (8.4-10.2); Carbon Dioxide 27 mmol/L (22-29); Chloride 102 mmol/L (96-108); Estimated Glomerular Filt Rate > 60; Glucose Random 198 mg/dL (60-115); Potassium 4.3 mmol/L (3.3-5.1); Sodium 139 mmol/L (135-145); Total Protein 7.4 g/dL (6.5-8.0)
[2021-12-23 14:16] LABS: Estimated Average Glucose 174 mg/dL; Hemoglobin A1c % 7.7 %
== END 2021-12-23 12:01 | disposition home or self-care (01) ==
LOC: HO.10HDL 12:00
PROVIDERS: Visit Provider Internal Medicine
DX: R05.9 Cough, unspecified (principal); D64.9 Anemia, unspecified; E11.9 Type 2 diabetes mellitus without complications; R06.2 Wheezing
CPT/HCPCS: 36415; 71046; 80053; 83036; 85025

== ENCOUNTER → 2022-01-27 14:58 | Outpatient (BNVA) | payer MEDICARE, OTHER, SELFPAY | PROVIDERS: PCP Internal Medicine; Visit Provider Internal Medicine | DX: J44.9 Chronic obstructive pulmonary disease, unspecified (principal); J30.9 Allergic rhinitis, unspecified; R05.9 Cough, unspecified; Z79.899 Other long term (current) drug therapy | CPT/HCPCS: 99212 ==

== ENCOUNTER → 2022-02-10 12:53 | Outpatient (BNVA) | payer MEDICARE, OTHER, SELFPAY | PROVIDERS: PCP Internal Medicine; Visit Provider Internal Medicine | DX: J44.9 Chronic obstructive pulmonary disease, unspecified (principal); J30.9 Allergic rhinitis, unspecified; Z79.899 Other long term (current) drug therapy | CPT/HCPCS: 99212 ==

== ENCOUNTER 2022-03-24 09:07 | Outpatient (REF) | payer MEDICARE, OTHER, SELFPAY ==
[2022-03-24 11:22] LABS: MANUAL DIFF FLAG NO
[2022-03-24 11:34] LABS: Estimated Average Glucose 240 mg/dL
[2022-03-24 11:45] LABS: Hematocrit 44.2 % (37.0-47.0); Hemoglobin 15.4 g/dl (12.0-16.0); Imm Gran Pct Auto 0.4 % (0.0-0.4); Mean Corpuscular HGB Conc 34.8 g/dl (31.0-35.0); Mean Corpuscular Hemoglobin 31.8 pg (27.0-33.0); Mean Corpuscular Volume 91.1 fL (80.0-98.0); Mean Platelet Volume 11.2 fL (9.4-12.3); Neutrophils Percent Auto 62.9 % (45-73); Platelet Count 170 X10*3/uL (160-400); Red Blood Count 4.85 X10*6/uL (4.20-5.50); Red Cell Distribution Width 13.2 % (11.0-16.0); White Blood Count 7.5 X10*3/uL (4.8-10.8)
[2022-03-24 11:46] LABS: Basophils Percent Auto 0.5 % (0-2); Eosinophils Absolute Auto 0.4 X10*3/uL (0.0-0.4); Eosinophils Percent Auto 4.6 % (0-4); Imm Gran Abs Auto 0.03 X10*3/uL (0.00-0.03); Lymphocytes Absolute Auto 1.7 X10*3/uL (1.2-4.9); Lymphocytes Percent Auto 23.1 % (20-40); Monocytes Absolute Auto 0.6 X10*3/uL (0.1-1.2); Monocytes Percent Auto 8.5 % (2-11); Neutrophils Absolute Auto 4.7 x10*3/uL (2.0-8.3)
[2022-03-24 11:54] LABS: Alanine Aminotransferase 46 U/L (0-31); Albumin Level 4.4 g/dL (3.5-5.0); Alkaline Phosphatase 64 U/L (39-117); Anion Gap 17 (12-20); Aspartate Amino Transferase 50 U/L (5-31); Bilirubin Total 0.9 mg/dL (0.0-1.0); Blood Urea Nitrogen 12 mg/dL (9-16); Calcium 9.1 mg/dL (8.4-10.2); Carbon Dioxide 28 mmol/L (22-29); Chloride 99 mmol/L (96-108); Cholesterol 159 mg/dL; Estimated Glomerular Filt Rate > 60; Glucose Fasting 264 mg/dL (60-99); HDL Cholesterol 55 mg/dL; Iron 104 mcg/dL (30-160); LDL Cholesterol Calculated 78 mg/dl; Percent Iron Saturation 32 % (15-50); Potassium 4.3 mmol/L (3.3-5.1); Sodium 140 mmol/L (135-145); Total Iron Binding Capacity 324 mcg/dL (228-428); Total Protein 7.2 g/dL (6.5-8.0); Triglycerides 131 mg/dL; Unsaturated Iron Binding 220 ug/dL
[2022-03-24 12:04] LABS: Free T4 (Free Thyroxine) 1.08 ng/dL (0.71-1.85); Thyroid Stimulating Hormone 1.78 uIU/mL (0.32-4.0)
[2022-03-24 12:05] LABS: Creatinine Urine 266.52 mg/dL; Microalbum/Creatinine Ratio Ur 69.4 ug/mg cr
== END 2022-03-24 09:08 | disposition home or self-care (01) ==
LOC: HO.HMGCLDS 09:07
PROVIDERS: PCP Internal Medicine; Visit Provider Internal Medicine
DX: E11.9 Type 2 diabetes mellitus without complications (principal); E03.9 Hypothyroidism, unspecified; I10 Essential (primary) hypertension; E78.00 Pure hypercholesterolemia, unspecified; J45.909 Unspecified asthma, uncomplicated
CPT/HCPCS: 36415; 80053; 80061; 82043; 83036; 83540; 84439; 84443; 85025

== ENCOUNTER → 2022-04-07 10:34 | Outpatient (BNVA) | payer MEDICARE, OTHER, SELFPAY | PROVIDERS: PCP Internal Medicine; Visit Provider Internal Medicine | DX: J44.9 Chronic obstructive pulmonary disease, unspecified (principal); J30.9 Allergic rhinitis, unspecified; R05.9 Cough, unspecified; Z79.899 Other long term (current) drug therapy | CPT/HCPCS: 99212 ==

== ENCOUNTER 2022-04-24 10:37 | Outpatient (REF) | payer MEDICARE, OTHER, SELFPAY ==
--- NOTE | ~2022-04-24 | MM_ITS ---
EXAMINATION: BONE DENSITOMETRY CLINICAL INDICATION: Osteopenia. COMPARISON: Previous BD dated 12/08/2019 and baseline BD dated 02/28/2004. TECHNIQUE: Using a [employer] DXA System (software version: 13.1) manufactured by [employer], dual-energy x-ray absorptiometry was performed of the lumbar spine and left hip. The images are of good technical quality. Summary results are attached. FINDINGS: AP SPINE L1-L4: Current: BMD 1.121 g/cm2, Z-score 0.8, T-score -0.5, normal, 0.5% increase from previous, 0.6% decrease from baseline (<5% change is not significant). Prior: BMD 1.115 g/cm2. Baseline: BMD 1.128 g/cm2. LEFT FEMUR, NECK: Current: BMD 0.801 g/cm2, Z-score 0.2, T-score -1.7, osteopenia. Prior: BMD 0.783 g/cm2. Baseline: BMD 0.850 g/cm2. LEFT FEMUR, TOTAL: Current: BMD 0.852 g/cm2, Z-score 0.5, T-score -1.2, osteopenia, 3.0% decrease from previous, 7.5% decrease from baseline (<5% change is not significant). Prior: BMD 0.878 g/cm2. Baseline: BMD 0.921 g/cm2. IDENTIFIED RISK FACTORS: Rheumatoid arthritis, history of fracture (adult), thiazide, menopause. HISTORY OF FRACTURE: Spine. Other. MEDICATIONS: Calcium supplements or multivitamin, vitamin D. MM/XR DEXA axial skeleton IMPRESSION: 1. DIAGNOSIS: Osteopenia based on the lowest T-score value of -1.7 in the femoral neck applying World Health Organization criteria. 2. 10-YEAR FRACTURE RISK PREDICTION, FRAX: Major osteoporotic fracture (clinical spine, forearm, hip or shoulder) 24.7%. Hip fracture 6.7%. 3. Treatment Recommendations: NOF guidelines recommend consideration for treatment in postmenopausal women and men age 50 and older presenting with the following: -A hip or vertebral (clinical or morphometric) fracture. -T-score less than or equal to -2.5 at the femoral neck or spine after appropriate evaluation to exclude secondary causes. -Low bone mass at the hip or spine and a 10-year fracture probability by FRAX of greater than or equal to 3% for hip fracture or greater than or equal to 20% for major osteoporotic fracture based on the [place] adapted WHO algorithm. 4. Other Recommendations: All treatment decisions require clinical judgment and consideration of individual patient factors, including patient preferences, comorbidities, previous drug use, risk factors not captured in the FRAX model (e.g. frailty, falls, vitamin D deficiency, increased bone turnover, interval significant decline in bone density) and possible under or overestimation of fracture risk by FRAX. Additional medical evaluation for secondary cause of low bone mineral density may be appropriate. FUTURE SCAN RECOMMENDATION: People with diagnosed cases of osteoporosis or at high risk for fracture should have regular bone mineral density tests. For patients eligible for Medicare, routine testing is allowed once every 2 years. The testing frequency can be increased to one year for patients who have rapidly progressing disease, those who are receiving or discontinuing medical therapy to restore bone mass, or have additional risk factors.
== END 2022-04-24 10:38 | disposition home or self-care (01) ==
LOC: HO.MAMMO 10:37
PROVIDERS: Visit Provider Internal Medicine Medical Oncology
DX: Z13.820 Encounter for screening for osteoporosis (principal); M85.89 Other specified disorders of bone density and structure, multiple sites; Z78.0 Asymptomatic menopausal state
CPT/HCPCS: 77080

== ENCOUNTER 2022-06-22 13:21 | Outpatient (REF) | payer MEDICARE, OTHER, SELFPAY ==
[2022-06-22 16:40] LABS: MANUAL DIFF FLAG NO
[2022-06-22 16:44] LABS: Basophils Percent Auto 0.5 % (0-2); Eosinophils Absolute Auto 0.3 X10*3/uL (0.0-0.4); Hematocrit 44.3 % (37.0-47.0); Hemoglobin 15.6 g/dl (12.0-16.0); Imm Gran Abs Auto 0.02 X10*3/uL (0.00-0.03); Imm Gran Pct Auto 0.2 % (0.0-0.4); Lymphocytes Absolute Auto 2.2 X10*3/uL (1.2-4.9); Lymphocytes Percent Auto 26.6 % (20-40); Mean Corpuscular HGB Conc 35.2 g/dl (31.0-35.0); Mean Corpuscular Hemoglobin 31.6 pg (27.0-33.0); Mean Corpuscular Volume 89.7 fL (80.0-98.0); Mean Platelet Volume 10.3 fL (9.4-12.3); Monocytes Absolute Auto 0.5 X10*3/uL (0.1-1.2); Monocytes Percent Auto 5.9 % (2-11); Neutrophils Absolute Auto 5.3 x10*3/uL (2.0-8.3); Neutrophils Percent Auto 63.8 % (45-73); Platelet Count 244 X10*3/uL (160-400); Red Blood Count 4.94 X10*6/uL (4.20-5.50); Red Cell Distribution Width 12.6 % (11.0-16.0); White Blood Count 8.4 X10*3/uL (4.8-10.8)
[2022-06-22 16:52] LABS: Estimated Average Glucose 246 mg/dL; Hemoglobin A1c % 10.2 %
[2022-06-22 17:04] LABS: Alanine Aminotransferase 35 U/L (0-31); Albumin Level 4.1 g/dL (3.5-5.0); Alkaline Phosphatase 68 U/L (39-117); Anion Gap 13 (12-20); Aspartate Amino Transferase 40 U/L (5-31); Bilirubin Total 1.3 mg/dL (0.0-1.0); Blood Urea Nitrogen 12 mg/dL (9-16); Calcium 9.6 mg/dL (8.4-10.2); Carbon Dioxide 28 mmol/L (22-29); Chloride 102 mmol/L (96-108); Estimated Glomerular Filt Rate > 60; Glucose Random 271 mg/dL (60-115); Potassium 3.6 mmol/L (3.3-5.1); Sodium 139 mmol/L (135-145); Total Protein 6.7 g/dL (6.5-8.0)
[2022-06-22 17:22] LABS: Free T4 (Free Thyroxine) 1.17 ng/dL (0.71-1.85); Thyroid Stimulating Hormone 1.37 uIU/mL (0.32-4.0)
== END 2022-06-22 13:22 | disposition home or self-care (01) ==
LOC: HO.HMGCLDS 13:21
PROVIDERS: PCP Internal Medicine; Visit Provider Internal Medicine
DX: I10 Essential (primary) hypertension (principal); J44.9 Chronic obstructive pulmonary disease, unspecified; R79.89 Other specified abnormal findings of blood chemistry; E03.9 Hypothyroidism, unspecified; Z86.16 Personal history of COVID-19
CPT/HCPCS: 36415; 80053; 83036; 84439; 84443; 85025

== ENCOUNTER → 2022-07-14 09:48 | Outpatient (BNVA) | payer MEDICARE, OTHER, SELFPAY | PROVIDERS: PCP Internal Medicine; Visit Provider Surgery | DX: J44.9 Chronic obstructive pulmonary disease, unspecified (principal); J30.9 Allergic rhinitis, unspecified; Z85.3 Personal history of malignant neoplasm of breast | CPT/HCPCS: 99212 ==

== ENCOUNTER → 2022-10-19 10:04 | Outpatient (BNVA) | payer MEDICARE, OTHER, SELFPAY | PROVIDERS: PCP Internal Medicine; Visit Provider Internal Medicine | DX: J44.9 Chronic obstructive pulmonary disease, unspecified (principal); J45.909 Unspecified asthma, uncomplicated; J30.9 Allergic rhinitis, unspecified; R05.9 Cough, unspecified | CPT/HCPCS: 99212 ==

== ENCOUNTER 2022-11-24 10:33 | Outpatient (REF) | payer OTHER, SELFPAY ==
[2022-11-24 14:42] LABS: Anion Gap 11 (12-20); Blood Urea Nitrogen 10 mg/dL (9-16); Calcium 9.8 mg/dL (8.4-10.2); Carbon Dioxide 30 mmol/L (22-29); Chloride 103 mmol/L (96-108); Estimated Glomerular Filt Rate > 60; Glucose Random 134 mg/dL (60-115); Potassium 4.2 mmol/L (3.3-5.1); Sodium 140 mmol/L (135-145)
[2022-11-24 14:44] LABS: Estimated Average Glucose 148 mg/dL; Hemoglobin A1c % 6.8 %
== END 2022-11-24 10:34 | disposition home or self-care (01) ==
LOC: HO.HMGCLDS 10:33
PROVIDERS: PCP Internal Medicine; Visit Provider Internal Medicine
DX: J44.9 Chronic obstructive pulmonary disease, unspecified (principal); I12.9 Hypertensive chronic kidney disease with stage 1 through stage 4 chronic kidney disease, or unspecified chronic kidney disease; E11.22 Type 2 diabetes mellitus with diabetic chronic kidney disease; N18.9 Chronic kidney disease, unspecified
CPT/HCPCS: 36415; 80048; 83036

== ENCOUNTER 2023-01-08 11:02 | Outpatient (REF) | payer MEDICARE, OTHER, SELFPAY ==
--- NOTE | ~2023-01-08 | MM_ITS ---
EXAMINATION: MM SCREENING DIGITAL BREAST TOMOSYNTHESIS, BILATERAL CLINICAL INFORMATION: Screening. Asymptomatic. The patient has a history of right breast surgery for cancer in 2008 and subsequently in 2014 with benign results. COMPARISON: Mammography: This study is compared with prior exams dating back to 2019. TECHNIQUE: Digital breast tomosynthesis is performed in both the craniocaudal and mediolateral oblique views along with computer-aided detection (CAD). Synthesized 2D images are generated from the tomosynthesis. FINDINGS: There are scattered areas of fibroglandular density (ACR BI-RADS breast composition Category b). There are postsurgical changes in the right breast and right axilla. There are bilateral benign calcifications. There are no significant masses, abnormal calcifications, or other abnormalities. MM/MM tomosynthesis screening BI IMPRESSION: No mammographic evidence of malignancy. ASSESSMENT: BI-RADS BI-RADS 2 - Benign Findings RECOMMENDATION: Routine annual mammography screening. 1 year F/U This examination should not preclude the clinical evaluation of a suspicious palpable abnormality. This patient's information was entered into a reminder system with a target due date for their next mammogram.
== END 2023-01-08 11:03 | disposition home or self-care (01) ==
LOC: HO.MAMMO 11:02
PROVIDERS: PCP Internal Medicine; Visit Provider Internal Medicine
DX: Z12.31 Encounter for screening mammogram for malignant neoplasm of breast (principal)
CPT/HCPCS: 77063; 77067

== ENCOUNTER → 2023-01-08 11:30 | Outpatient (BNV) | payer MEDICARE, OTHER, SELFPAY | PROVIDERS: PCP Internal Medicine; Visit Provider Radiology Diagnostic Radiology | DX: Z12.31 Encounter for screening mammogram for malignant neoplasm of breast (principal) | CPT/HCPCS: 77063; 77067 ==

== ENCOUNTER 2023-02-16 10:33 | Outpatient (AMB) | payer MEDICARE, OTHER, SELFPAY ==
[2023-02-16 10:51] VITALS: BP 120/62; PULSE 71; O2SAT 93; BMI 30.9
--- NOTE | 2023-02-16 10:51 | A.OFFVIS_ITS ---
Intake Vital Signs 02/16/23 10:51 Height 5 ft 2 in Weight 169 lb BMI 30.9 BP 120/62 Blood Pressure Location Lt brachial Position Sitting Pulse 71 Pulse Source Pulse Oximeter Pulse Oximetry (%) 93 Oxygen Delivery Method Room Air Intake Visit Reasons: cough Intake Note: pt is hre for follow up and states she thinks she has a cold, has a cough, was i front of air conditioner and thinks it aggravated her. 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 Allergies baclofen Allergy (Intermediate, Verified 02/16/23 11:22) rash/swelling beet Allergy (Intermediate, Verified 02/16/23 11:22) tongue swelling celecoxib [From Celebrex] Allergy (Intermediate, Verified 02/16/23 11:22) rash/swelling Medication List - Last Reconciled 02/16/23 by Mann Velazco MD albuterol sulfate 90 mcg/actuation (Ventolin HFA) 2 puffs inhalation Q4-6H PRN 30 days amlodipine 5 mg PO DAILY budesonide 0.5 mg (2 mL) inhalation BID fexofenadine (Destinee Allergy) 180 mg PO DAILY gabapentin 300 mg PO BID glipizide ER 5 mg PO BID insulin glargine (Lantus Solostar U-100 Insulin) units subcut ipratropium-albuterol 0.5 mg-3 mg(2.5 mg base)/3 mL 3 mL inhalation Q4-6H PRN 30 days irbesartan 1 tab PO DAILY levothyroxine 75 mcg PO DAILY metoprolol succinate ER 50 mg PO DAILY montelukast 10 mg PO BEDTIME 30 days omeprazole 20 mg PO DAILY simvastatin 20 mg PO DAILY Do you need a note to return to daycare/school/sports/work: No HPI cough HPI Details 82 YEARS OLD VERY PLEASANT FEMALE IS HERE FOR HER 4 MONTHS FOLLOW-UP FOR COPD/ ASTHMA AND ALLERGIC RHINITIS. SHE HAS BEEN DOING WELL AND REMAINED STABLE, BUT FOR THE PAST FEW DAYS SHE IS HAVING WITH NASAL CONGESTION, SHE THINKS IS FROM THE AIR CONDITIONING. NO FEVER OR CHILLS, . AND NO CHEST PAIN SHE HAS SOME COMPLAINT ABOUT HER NEBULIZER, AND WE ADVISED HER TO HAVE IT CHECKED BY THE DME([facility] ) MAY NEED A NEW DEVICE. SHE IS USING, IPRATROPIUM/ALBUTEROL SOLUTION IN THE NEBULIZER ABOUT 3 TIMES A DAY, BUDESONIDE 0.5 MG SOLUTION B.I.D. AND ALSO USES ALBUTEROL HFA P.R.N.. [facility] Medical History Allergic rhinitis Asthma Bronchitis COPD (chronic obstructive pulmonary disease) Cough COVID-19 vaccine series completed Diabetes Elevated cholesterol GERD (gastroesophageal reflux disease) History of right breast cancer HTN (hypertension) Hx of nephrolithotomy with removal of calculi Hypothyroid Iron deficiency anemia Surgical History History of cholecystectomy (1999) History of colonoscopy (2008) History of esophagogastroduodenoscopy (EGD) History of excision of lesion (01/2001) History of left breast biopsy (1992) History of lumpectomy of right breast (07/01/07) History of vocal cord polypectomy (08/10/12) Hx of cataract extraction Hx of cystoscopy Hx of right breast biopsy (10/27/03) Status post lumbar spine surgery for decompression of spinal cord Family History Father Lung cancer Mother Cancer of unknown origin Sister Lung cancer, Onset Age: 57 Sister Melanoma, Onset Age: 44 Sister Lung cancer, Onset Age: 70 Brother Lung cancer Brother Lung cancer Son Melanoma Social History Household Members: Spouse Housing: House Are you a primary property caretaker to a significant other at home: No Do you presently have visiting nurse or other home services: No Alcohol intake: never Patient Tobacco Use Status: Former Tobacco user Tobacco use type: Cigarette service: No Current occupational status: retired Review of Systems Const All systems reviewed & are unremarkable except as noted in HPI and below Eyes Reports no additional complaints ENT Reports hoarseness (mild ) and Reports nasal congestion (Mild chronic) Card Reports no additional complaints, Denies chest pain, Denies irregular heart rhythm and Denies leg edema Resp Reports as per HPI GI Reports no additional complaints Reports no additional complaints Musc Reports back pain Skin/Breast Reports system reviewed and no additional complaints, except as documented Neuro Reports no additional complaints Psych Reports no additional complaints Physical Exam Vital Signs: Last Vital Signs Pulse 71 02/16/23 10:51 BP 120/62 02/16/23 10:51 Pulse Ox 93 02/16/23 10:51 Oxygen Delivery Method Room Air 02/16/23 10:51 BMI result Body Mass Index 30.9 Const General: comfortable, no acute distress, alert and awake Orientation/consciousness: patient oriented x3 HEENT Head: Yes normal to inspection General nose exam: No nasal polyps present, No nasal discharge present and Other nasal findings present (Chronic nasal congestion) Face and sinus: Yes sinuses nontender Mouth: oropharynx normal Throat: Yes posterior oropharynx normal Eyes General: appearance normal, both eyes and all related structures Neck Neck: Yes normal visual inspection, Yes no lymphadenopathy, Yes trachea midline and Yes no JVD Thyroid: Thyroid normal Chest Chest palpation & inspection: normal inspection of the chest, normal palpation of entire chest wall and no tenderness Resp Other: Percussion note resonant, breath sounds are equal on both sides but with prolonged expiratory phase. There are a few expiratory wheezes scattered over the chest. No Rhonchi or creps. Cardio Palpation: normal PMI Rate: regular rate Rhythm: regular rhythm Heart sounds: no gallops and no murmurs GI Palpation (GI): Soft to palpation, nontender, No hepatosplenomegaly present and no masses Auscultation: normal bowel sounds Back/Spine/Pelvis Thoracic/Lumbar Spine: thoracic and lumbar spine normal to inspection, thoraco- lumbar ROM limited and thoraco-lumbar spasm Skin General skin exam: no rashes or lesions noted Neuro General: patient oriented x3 and no focal motor deficits Cranial nerves: Yes CN's II-XII intact bilaterally Extrem General: Yes normal to inspection, Yes no clubbing, cyanosis or edema and Yes no calf tenderness Psych Speech and movement: Normal speech and movement present Assessment & Plan Assessment & Plan (1) COPD (chronic obstructive pulmonary disease): Comment: PATIENT HAS COMBINATION OF CHRONIC OBSTRUCTIVE PULMONARY DISEASE AND MODERATE DEGREE OF RESTRICTIVE LUNG DISEASE. SHE IS DOING VERY WELL ON THE CURRENT REGIMEN, AND WILL CONTINUE ON THE SAME: IPRATROPIUM-ALBUTEROL SOLUTION IN NEBULIZER Q 6 HOURS WHILE AWAKE.( 3 TIMES A DAY ) BUDESONIDE 0. 5 MG IN THE NEBULIZER B.I.D. VENTOLIN 2 PUFFS Q 4-6 HOURS P.R.N. Use humidifier in the bedroom at night in the winter months. Code(s): J44.9 - Chronic obstructive pulmonary disease, unspecified (2) Asthma: Comment: SHE HAS FEATURES OF ASTHMA/COPD . TREATMENT : SEE UNDER COPD. Code(s): J45.909 - Unspecified asthma, uncomplicated (3) Cough: Comment: COUGH SEC TO ASTHMA /COPD IMPROVED , BUT SEEMS TO BE MORE SEC TO ALLERGIC RHINITIS . TX : MAY STILL USE PROMETHAZINE WITH CODEINE SYRUP 1 TSP Q.6 HOURS P.R.N.. BUT ONLY SPARINGLY. ALTERNATE WITH OTC COUGH MEDICINE/ ROBITUSSIN DM OR EQUIVALENT 1 OR 2 TSP Q.6 HOURS P.R.N. Code(s): R05.9 - Cough, unspecified Coding Level of Care Code Est Pt Level 3 (74413) Diagnoses COPD (chronic obstructive pulmonary disease) J44.9 Asthma J45.909 Cough R05.9
== END 2023-02-16 11:23 | disposition home or self-care (01) ==
PROVIDERS: PCP Internal Medicine; Visit Provider Internal Medicine
DX: J44.9 Chronic obstructive pulmonary disease, unspecified (principal); J45.909 Unspecified asthma, uncomplicated; R05.9 Cough, unspecified
CPT/HCPCS: 99213

== ENCOUNTER → 2023-02-16 10:33 | Outpatient (BNVA) | payer MEDICARE, OTHER, SELFPAY | PROVIDERS: PCP Internal Medicine; Visit Provider Internal Medicine | DX: J44.9 Chronic obstructive pulmonary disease, unspecified (principal); J45.909 Unspecified asthma, uncomplicated; R05.9 Cough, unspecified | CPT/HCPCS: 99212 ==

== ENCOUNTER 2023-04-16 09:09 | Outpatient (REF) | payer MEDICARE, OTHER, SELFPAY ==
[2023-04-16 11:22] LABS: MANUAL DIFF FLAG NO
[2023-04-16 11:28] LABS: Basophils Absolute Auto 0.1 X10*3/uL (0.0-0.2); Basophils Percent Auto 0.6 % (0-2); Eosinophils Absolute Auto 0.3 X10*3/uL (0.0-0.4); Eosinophils Percent Auto 3.6 % (0-4); Hemoglobin 15.5 g/dl (12.0-16.0); Imm Gran Abs Auto 0.02 X10*3/uL (0.00-0.03); Imm Gran Pct Auto 0.2 % (0.0-0.4); Lymphocytes Absolute Auto 2.7 X10*3/uL (1.2-4.9); Lymphocytes Percent Auto 30.8 % (20-40); Mean Corpuscular HGB Conc 34.4 g/dl (31.0-35.0); Mean Corpuscular Hemoglobin 31.6 pg (27.0-33.0); Mean Corpuscular Volume 91.8 fL (80.0-98.0); Mean Platelet Volume 10.2 fL (9.4-12.3); Monocytes Absolute Auto 0.6 X10*3/uL (0.1-1.2); Monocytes Percent Auto 6.7 % (2-11); Neutrophils Absolute Auto 5.1 x10*3/uL (2.0-8.3); Neutrophils Percent Auto 58.1 % (45-73); Platelet Count 184 X10*3/uL (160-400); Red Cell Distribution Width 13.1 % (11.0-16.0); White Blood Count 8.7 X10*3/uL (4.8-10.8)
[2023-04-16 11:44] LABS: Estimated Average Glucose 137 mg/dL; Hemoglobin A1c % 6.4 % (<6.0)
[2023-04-16 12:36] LABS: Alanine Aminotransferase 25 U/L (0-31); Albumin Level 4.3 g/dL (3.5-5.0); Alkaline Phosphatase 49 U/L (39-117); Anion Gap 14 (12-20); Aspartate Amino Transferase 36 U/L (5-31); Bilirubin Total 0.8 mg/dL (0.0-1.0); Blood Urea Nitrogen 13 mg/dL (9-16); Calcium 9.4 mg/dL (8.4-10.2); Carbon Dioxide 30 mmol/L (22-29); Chloride 102 mmol/L (96-108); Cholesterol 160 mg/dL (<200); Estimated Glomerular Filt Rate > 60; Free T4 (Free Thyroxine) 0.93 ng/dL (0.71-1.85); Glucose Fasting 83 mg/dL (60-99); HDL Cholesterol 63 mg/dL (>40); LDL Cholesterol Calculated 74 mg/dL (<100); Potassium 3.5 mmol/L (3.3-5.1); Sodium 142 mmol/L (135-145); Thyroid Stimulating Hormone 2.48 uIU/mL (0.32-4.0); Total Protein 7.6 g/dL (6.5-8.0); Triglycerides 118 mg/dL (<150)
[2023-04-16 12:41] LABS: Creatinine Urine 182.18 mg/dL; Microalbum/Creatinine Ratio Ur 53.2 ug/mg cr (<30)
== END 2023-04-16 09:10 | disposition home or self-care (01) ==
LOC: HO.HMGCLDS 09:09
PROVIDERS: PCP Internal Medicine; Visit Provider Internal Medicine
DX: E11.9 Type 2 diabetes mellitus without complications (principal); I10 Essential (primary) hypertension; E03.9 Hypothyroidism, unspecified; E78.00 Pure hypercholesterolemia, unspecified; J44.9 Chronic obstructive pulmonary disease, unspecified
CPT/HCPCS: 36415; 80053; 80061; 82043; 82570; 83036; 84439; 84443; 85025

== ENCOUNTER 2023-06-22 10:49 | Outpatient (AMB) | payer MEDICARE, OTHER, SELFPAY ==
--- NOTE | 2023-06-22 10:58 | A.OFFVIS_ITS ---
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 Accompanied by: Daughter Allergies baclofen Allergy (Intermediate, Verified 06/22/23 11:10) rash/swelling beet Allergy (Intermediate, Verified 06/22/23 11:10) tongue swelling celecoxib [From Celebrex] Allergy (Intermediate, Verified 06/22/23 11:10) rash/swelling Medication List - Last Reconciled 06/22/23 by Mann Velazco MD albuterol sulfate 90 mcg/actuation (Ventolin HFA) 2 puffs inhalation Q4-6H PRN 30 days amlodipine 5 mg PO DAILY budesonide 0.5 mg (2 mL) inhalation BID fexofenadine (Roberto Allergy) 180 mg PO DAILY gabapentin 300 mg PO BID glipizide ER 5 mg PO BID insulin glargine (Lantus Solostar U-100 Insulin) 100 units subcut DAILY ipratropium-albuterol 0.5 mg-3 mg(2.5 mg base)/3 mL 3 mL inhalation Q4-6H PRN irbesartan 1 tab PO DAILY levothyroxine 75 mcg PO DAILY metoprolol succinate ER 50 mg PO DAILY montelukast 10 mg PO BEDTIME 30 days omeprazole 20 mg PO DAILY simvastatin 20 mg PO DAILY Do you need a note to return to daycare/school/sports/work: No HPI cough HPI Details 82 YEARS OLD VERY PLEASANT FEMALE COMES AFTER 4 MONTHS FOR FOLLOW-UP. HER CONDITION IS REMAINING VERY STABLE EXCEPT FOR INTERMITTENT BOUTS OF NASAL CONGESTION WITH INCREASED POSTNASAL DISCHARGE AND HOARSENESS. BREATHING THACKER THERE HAS BEEN NO PROBLEM. SHE HAS HAD NO FEVER OR CHILLS. COUGH IS MINIMAL AND SHE SLEEPS WELL THROUGHOUT THE NIGHT. SHE HAS ACHES AND PAINS ALL OVER THE BODY SPECIALLY IN THE BACK AND WRIST JOINTS, USING AT [facility] AT NIGHT WHICH IS HELPING. [facility]LY [facility], [facility] Medical History Asthma Cough Bronchitis COVID-19 vaccine series completed Iron deficiency anemia Elevated cholesterol HTN (hypertension) Diabetes GERD (gastroesophageal reflux disease) Hypothyroid Hx of nephrolithotomy with removal of calculi COPD (chronic obstructive pulmonary disease) Allergic rhinitis History of right breast cancer Surgical History Status post lumbar spine surgery for decompression of spinal cord Hx of cystoscopy Hx of cataract extraction History of esophagogastroduodenoscopy (EGD) Hx of right breast biopsy (10/27/03) History of vocal cord polypectomy (08/10/12) History of colonoscopy (2008) History of lumpectomy of right breast (07/01/07) History of excision of lesion (01/2001) History of cholecystectomy (1999) History of left breast biopsy (1992) Family History Father Lung cancer Mother Cancer of unknown origin Sister Lung cancer, Onset Age: 57 Sister Melanoma, Onset Age: 44 Sister Lung cancer, Onset Age: 70 Brother Lung cancer Brother Lung cancer Son Melanoma Social History Household Members: Spouse Housing: House Are you a primary career development counselor to a significant other at home: No Do you presently have visiting nurse or other home services: No Alcohol intake: never Patient Tobacco Use Status: Former Tobacco user Tobacco use type: Cigarette service: No Current occupational status: retired Review of Systems Const All systems reviewed & are unremarkable except as noted in HPI and below Eyes Reports no additional complaints ENT Reports hoarseness (mild ) and Reports nasal congestion (Mild chronic) Card Reports no additional complaints, Denies chest pain, Denies irregular heart rhythm and Denies leg edema Resp Reports as per HPI GI Reports no additional complaints Reports no additional complaints Musc Reports back pain Skin/Breast Reports system reviewed and no additional complaints, except as documented Neuro Reports no additional complaints Psych Reports no additional complaints Physical Exam Vital Signs: Last Vital Signs Pulse 73 06/22/23 11:01 BP 134/74 06/22/23 11:01 Pulse Ox 97 06/22/23 11:01 Oxygen Delivery Method Room Air 06/22/23 11:01 BMI result Body Mass Index 32.1 Const General: comfortable, no acute distress, alert and awake Orientation/consciousness: patient oriented x3 HEENT Head: Yes normal to inspection General nose exam: No nasal polyps present, No nasal discharge present and Other nasal findings present (Chronic nasal congestion) Face and sinus: Yes sinuses nontender Mouth: oropharynx normal (NO THRUSH OR MUCOPURULENT SECRETIONS NOTED) Throat: Yes posterior oropharynx normal Eyes General: appearance normal, both eyes and all related structures Neck Neck: Yes normal visual inspection, Yes no lymphadenopathy, Yes trachea midline and Yes no JVD Thyroid: Thyroid normal Chest Chest palpation & inspection: normal inspection of the chest, normal palpation of entire chest wall and no tenderness Resp Other: Percussion note resonant, breath sounds are equal on both sides but with prolonged expiratory phase. There are a few expiratory wheezes scattered over the chest. No Rhonchi or creps. Cardio Palpation: normal PMI Rate: regular rate Rhythm: regular rhythm Heart sounds: no gallops and no murmurs GI Palpation (GI): Soft to palpation, nontender, No hepatosplenomegaly present and no masses Auscultation: normal bowel sounds Back/Spine/Pelvis Thoracic/Lumbar Spine: thoracic and lumbar spine normal to inspection, thoraco- lumbar ROM limited and thoraco-lumbar spasm Skin General skin exam: no rashes or lesions noted Neuro General: patient oriented x3 and no focal motor deficits Cranial nerves: Yes CN's II-XII intact bilaterally Extrem General: Yes normal to inspection, Yes no clubbing, cyanosis or edema and Yes no calf tenderness Psych Speech and movement: Normal speech and movement present Assessment & Plan Assessment & Plan (1) COPD (chronic obstructive pulmonary disease): Comment: PATIENT HAS COMBINATION OF CHRONIC OBSTRUCTIVE PULMONARY DISEASE AND MODERATE DEGREE OF RESTRICTIVE LUNG DISEASE. SHE IS DOING VERY WELL ON THE CURRENT REGIMEN, AND WILL CONTINUE ON THE SAME: Code(s): J44.9 - Chronic obstructive pulmonary disease, unspecified Plan: TX : IPRATROPIUM-ALBUTEROL SOLUTION IN NEBULIZER Q 6 HOURS WHILE AWAKE.( 3 TIMES A DAY ) BUDESONIDE 0. 5 MG IN THE NEBULIZER B.I.D. VENTOLIN 2 PUFFS Q 4-6 HOURS P.R.N. Use humidifier in the bedroom at night in the winter months. (2) Allergic rhinitis: Comment: MILD, CHRONIC, AROUND THE YEAR. Code(s): J30.9 - Allergic rhinitis, unspecified Plan: ADVISED TO CONTINUE ROBERTO 180 MG ONCE A DAY P.R.N. AND MONTELUKAST 10 MG DAILY . (3) Asthma: Comment: SHE HAS FEATURES OF ASTHMA/COPD . TREATMENT : SEE UNDER COPD. Code(s): J45.909 - Unspecified asthma, uncomplicated Plan: ABOVE Coding Level of Care Code Est Pt Level 3 (59656) Diagnoses COPD (chronic obstructive pulmonary disease) J44.9 Allergic rhinitis J30.9 Asthma J45.909
[2023-06-22 11:01] VITALS: BP 134/74; PULSE 73; O2SAT 97; BMI 32.1
== END 2023-06-22 11:23 | disposition home or self-care (01) ==
PROVIDERS: PCP Internal Medicine; Visit Provider Internal Medicine
DX: J44.9 Chronic obstructive pulmonary disease, unspecified (principal); J30.9 Allergic rhinitis, unspecified; J45.909 Unspecified asthma, uncomplicated
CPT/HCPCS: 99213

== ENCOUNTER → 2023-06-22 10:49 | Outpatient (BNVA) | payer MEDICARE, OTHER, SELFPAY | PROVIDERS: PCP Internal Medicine; Visit Provider Internal Medicine | DX: J44.9 Chronic obstructive pulmonary disease, unspecified (principal); J45.909 Unspecified asthma, uncomplicated | CPT/HCPCS: 99212 ==

== ENCOUNTER 2023-07-13 10:09 | Outpatient (AMB) | payer MEDICARE, OTHER, SELFPAY ==
--- NOTE | 2023-07-13 10:20 | A.OFFVIS_ITS ---
Intake Vital Signs 3 07/13/23 10:29 Height 5 ft 2 in Weight 17 lb BMI 3.1 BP 128/80 Blood Pressure Location Lt brachial Position Sitting Intake Visit Reasons: 1 yr breast exam Intake Note: Patient is seen in office for yearly breast exam. Pt c/o: does not like how the left breast is looking, dark color blackish , skin is hard under the arm, pain under the left rib mm:01/08/23 Tosser Required: No Accompanied by: Self / Same As Patient Allergies baclofen Allergy (Intermediate, Verified 07/13/23 10:27) rash/swelling beet Allergy (Intermediate, Verified 07/13/23 10:27) tongue swelling celecoxib [From Celebrex] Allergy (Intermediate, Verified 07/13/23 10:27) rash/swelling HPI HPI Comments 2 History of Present Illness0 Details 82-year-old female patient returning for 1 year follow-up breast examination after a right breast lumpectomy with needle localization and sentinel node biopsy performed on November 2007. 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 She subsequently underwent radiation therapy followed by tamoxifen which was later switched to Arimidex. Following the biopsy she developed increased scar tissue around the right breast lumpectomy site which was evaluated with MRI, mammogram, and ultrasound as well as a core biopsy as well as wide excision.? The results were benign, determined to be related to treatment change.? She underwent a core biopsy in 09/21/2012 which revealed benign fibrous tissue.? Subsequent mammograms on 03/31/2013 and breast MRI on 10/05/2011 both were benign.? A follow-up MRI on 10/13/2013 revealed an area of linear clumped enhancement in the region of the prior lumpectomy.? Core biopsy on 10/26/2013 showed benign tissue with acute and chronic inflammatory changes.? Other breast MRI performed on 04/19/2015 revealed enhancement in the area of the prior lumpectomy.? This was located in the upper outer quadrant of the right breast in the site of multiple previous biopsies.? Continued observation was recommended.? In May 2019 the patient fell at home in the shower and broke a number of ribs on the left side as well as developed a vertebral fracture.? This required a brief hospitalization and subsequent rehab for 10 days. She continues to have back pain and is undergoing pain therapy with injections for this pain. She underwent bilateral back procedures at [facility] which seem to be helping recently. She continues to have right breast pain but denies any new changes. She occasionally has a sharp pain when taking a deep breath mainly in the right side. Her latest mammogram of 01/08/2023 revealed no mammographic evidence of malignancy (BI-RADS 2). A 1 year follow-up mammogram is recommended. [facility] Medical History Asthma Cough Bronchitis COVID-19 vaccine series completed Iron deficiency anemia Elevated cholesterol HTN (hypertension) Diabetes GERD (gastroesophageal reflux disease) Hypothyroid Hx of nephrolithotomy with removal of calculi COPD (chronic obstructive pulmonary disease) Allergic rhinitis History of right breast cancer Surgical History Status post lumbar spine surgery for decompression of spinal cord Hx of cystoscopy Hx of cataract extraction History of esophagogastroduodenoscopy (EGD) Hx of right breast biopsy (10/27/03) History of vocal cord polypectomy (08/10/12) History of colonoscopy (2008) History of lumpectomy of right breast (07/01/07) History of excision of lesion (01/2001) History of cholecystectomy (1999) History of left breast biopsy (1992) Family History Father Lung cancer Mother Cancer of unknown origin Sister Lung cancer, Onset Age: 57 Sister Melanoma, Onset Age: 44 Sister Lung cancer, Onset Age: 70 Brother Lung cancer Brother Lung cancer Son Melanoma Social History Household Members: Spouse Housing: House Are you a primary health and social care teacher to a significant other at home: No Do you presently have visiting nurse or other home services: No Alcohol intake: never Patient Tobacco Use Status: Former Tobacco user Tobacco use type: Cigarette service: No Current occupational status: retired Review of Systems Const All systems reviewed & are unremarkable except as noted in HPI and below Card Denies chest pain, Denies irregular heart rhythm and Reports dyspnea on exertion Resp Denies hemoptysis, Denies excessive phlegm production, Denies pain with cough and Reports dyspnea on exertion GI Reports no additional complaints Denies nipple discharge Musc Reports back pain and Reports arthralgias Skin/Breast Reports breast swelling, Reports breast skin changes, Reports breast pain, Reports breast mass, Denies change in pigmentation, Denies nipple discharge and Denies rash Goran/Lymph Denies lymphadenopathy Physical Exam Const General: cooperative, no acute distress and well developed Nutritional Appearance: well nourished Orientation/consciousness: patient oriented x3 Limitations: no limitations Neck Neck: Yes no lymphadenopathy and Yes trachea midline Chest Other: Right breast: Very dense breast tissue/scar tissue especially in the upper outer quadrant with scar retraction and nodularity involving the remaining breast tissue. No discrete mass is appreciated, no skin redness, no nipple discharge, no enlarged lymph nodes, mild tenderness to palpation. Left breast no skin change, no nipple discharge, no nipple retraction, no palpable mass, no enlarged lymph nodes. Chest/axillae images: 2 1. Incision upper inner quadrant. Surrounding breast tissue is thick, firm consistent with postsurgical and post radiation change. Breast tissue is tender throughout with no suspicious palpable masses appreciated. Resp Effort & Inspection: normal respiratory effort Skin General skin exam: no rashes or lesions noted Neuro General: patient oriented x3 Extrem General: Yes no clubbing, cyanosis or edema Assessment & Plan Assessment & Plan (1) History of right breast cancer: Comment: 2007 Code(s): Z85.3 - Personal history of malignant neoplasm of breast Plan: Patient returns for follow-up examination due to a personal history of right breast cancer. She has significant scarring as results of the previous surgery and radiation therapy. She is underwent multiple biopsies all of which were benign following the initial breast surgery. Patient's most recent mammogram of 01/08/2023 revealed no mammographic evidence of malignancy (BI-RADS 2). Examination today reveals no evidence of recurrence disease although the exam is difficult due to all the scarring in the right breast. I recommended follow-up examination in 1 year as well as yearly mammogram due as of December 2023. She should call sooner for any new breast concerns. Coding Level of Care Code Est Pt Level 3 (99256) Diagnoses History of right breast cancer Z85.3
[2023-07-13 10:29] VITALS: BP 128/80
== END 2023-07-13 10:45 | disposition home or self-care (01) ==
PROVIDERS: PCP Internal Medicine; Visit Provider Surgery
DX: Z85.3 Personal history of malignant neoplasm of breast (principal)
CPT/HCPCS: 99213

== ENCOUNTER → 2023-07-13 10:09 | Outpatient (BNVA) | payer MEDICARE, OTHER, SELFPAY | PROVIDERS: PCP Internal Medicine; Visit Provider Surgery | DX: Z85.3 Personal history of malignant neoplasm of breast (principal); Z92.3 Personal history of irradiation | CPT/HCPCS: 99212 ==

== ENCOUNTER 2023-08-13 13:18 | Outpatient (REF) | payer MEDICARE, OTHER, SELFPAY ==
[2023-08-13 16:17] LABS: MANUAL DIFF FLAG NO
[2023-08-13 16:33] LABS: Basophils Absolute Auto 0.1 X10*3/uL (0.0-0.2); Basophils Percent Auto 0.6 % (0-2); Eosinophils Absolute Auto 0.4 X10*3/uL (0.0-0.4); Eosinophils Percent Auto 4.2 % (0-4); Hematocrit 42.3 % (37.0-47.0); Hemoglobin 14.5 g/dl (12.0-16.0); Imm Gran Abs Auto 0.03 X10*3/uL (0.00-0.03); Imm Gran Pct Auto 0.3 % (0.0-0.4); Lymphocytes Absolute Auto 2.6 X10*3/uL (1.2-4.9); Lymphocytes Percent Auto 29.5 % (20-40); Mean Corpuscular HGB Conc 34.3 g/dl (31.0-35.0); Mean Corpuscular Volume 90.4 fL (80.0-98.0); Mean Platelet Volume 10.8 fL (9.4-12.3); Monocytes Absolute Auto 0.6 X10*3/uL (0.1-1.2); Monocytes Percent Auto 7.3 % (2-11); Neutrophils Absolute Auto 5.1 x10*3/uL (2.0-8.3); Neutrophils Percent Auto 58.1 % (45-73); Platelet Count 213 X10*3/uL (160-400); Red Blood Count 4.68 X10*6/uL (4.20-5.50); Red Cell Distribution Width 13.1 % (11.0-16.0); White Blood Count 8.8 X10*3/uL (4.8-10.8)
[2023-08-13 16:39] LABS: Estimated Average Glucose 154 mg/dL
[2023-08-13 16:56] LABS: Alanine Aminotransferase 22 U/L (0-31); Albumin Level 4.2 g/dL (3.5-5.0); Alkaline Phosphatase 56 U/L (39-117); Anion Gap 13 (12-20); Aspartate Amino Transferase 26 U/L (5-31); Bilirubin Total 0.7 mg/dL (0.0-1.0); Blood Urea Nitrogen 10 mg/dL (9-16); Calcium 9.4 mg/dL (8.4-10.2); Carbon Dioxide 29 mmol/L (22-29); Chloride 102 mmol/L (96-108); Estimated Glomerular Filt Rate > 60; Glucose Random 164 mg/dL (60-115); Potassium 4.4 mmol/L (3.3-5.1); Sodium 140 mmol/L (135-145); Total Protein 7.4 g/dL (6.5-8.0)
[2023-08-13 17:02] LABS: Free T4 (Free Thyroxine) 0.98 ng/dL (0.71-1.85); Thyroid Stimulating Hormone 1.68 uIU/mL (0.32-4.0)
[2023-08-13 17:03] LABS: Creatinine Urine 21.76 mg/dL; Microalbum/Creatinine Ratio Ur 87.3 ug/mg cr (<30)
== END 2023-08-13 13:19 | disposition home or self-care (01) ==
LOC: HO.HMGCLDS 13:18
PROVIDERS: PCP Internal Medicine; Visit Provider Internal Medicine
DX: E11.9 Type 2 diabetes mellitus without complications (principal); E03.9 Hypothyroidism, unspecified; J44.9 Chronic obstructive pulmonary disease, unspecified; K21.9 Gastro-esophageal reflux disease without esophagitis; I10 Essential (primary) hypertension
CPT/HCPCS: 36415; 80053; 82043; 82570; 83036; 84439; 84443; 85025

== ENCOUNTER 2023-10-19 10:43 | Outpatient (AMB) | payer MEDICARE, OTHER, SELFPAY ==
--- NOTE | 2023-10-19 10:49 | A.OFFVIS_ITS ---
Vital Signs 10/19/23 10:51 Height 5 ft 2 in Weight 174 lb BMI 31.8 BP 120/84 Blood Pressure Location Lt brachial Position Sitting Pulse 77 Pulse Source Pulse Oximeter Pulse Oximetry (%) 95 Oxygen Delivery Method Room Air Intake Visit Reasons: cough Intake Note: pt is here for follow up and states she is stuffed up and as soon as she opens her door, dry cough, dx mac degenertion in eyes. 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: No Allergies baclofen Allergy (Intermediate, Verified 10/19/23 11:14) rash/swelling beet Allergy (Intermediate, Verified 10/19/23 11:14) tongue swelling celecoxib [From Celebrex] Allergy (Intermediate, Verified 10/19/23 11:14) rash/swelling Medication List - Last Reconciled 10/19/23 by Mann Velazco MD albuterol sulfate 90 mcg/actuation (Ventolin HFA) 2 puffs inhalation Q4-6H PRN 30 days amlodipine 5 mg PO DAILY budesonide 0.5 mg (2 mL) inhalation BID fexofenadine (Destinee Allergy) 180 mg PO DAILY gabapentin 300 mg PO BID glipizide ER 5 mg PO BID insulin glargine (Lantus Solostar U-100 Insulin) 100 units subcut DAILY ipratropium-albuterol 0.5 mg-3 mg(2.5 mg base)/3 mL 3 mL inhalation Q4-6H PRN irbesartan 1 tab PO DAILY levothyroxine 75 mcg PO DAILY metoprolol succinate ER 50 mg PO DAILY montelukast 10 mg PO BEDTIME 30 days omeprazole 20 mg PO DAILY simvastatin 20 mg PO DAILY vitamins A,C,C-mjrd-zbhhdr 4,296 mcg-226 mg-90 mg (PreserVision AREDS) 1 cap PO BID Do you need a note to return to daycare/school/sports/work: No HPI HPI cough: Details: Aliya is now 82 years old, she comes after 4 months for her routine follow-up. Suffers from allergic rhinitis and Asthma/COPD She does have minor flare ups every now and then. She and her both suffered from norovirus and diarrhea for a few weeks from which she has recovered. She does get nasal congestion off and on. Also has bouts of cough usually triggered by some kind of environmental allergy. Continues to use DuoNeb updrafts 3 times a day and albuterol updraft only as needed. She continues to take montelukast 10 mg daily which has helped to keep her allergies under control. [facility] Medical History Asthma Cough Bronchitis COVID-19 vaccine series completed Iron deficiency anemia Elevated cholesterol HTN (hypertension) Diabetes GERD (gastroesophageal reflux disease) Hypothyroid Hx of nephrolithotomy with removal of calculi COPD (chronic obstructive pulmonary disease) Allergic rhinitis History of right breast cancer Surgical History Status post lumbar spine surgery for decompression of spinal cord Hx of cystoscopy Hx of cataract extraction History of esophagogastroduodenoscopy (EGD) Hx of right breast biopsy (10/27/03) History of vocal cord polypectomy (08/10/12) History of colonoscopy (2008) History of lumpectomy of right breast (07/01/07) History of excision of lesion (01/2001) History of cholecystectomy (1999) History of left breast biopsy (1992) Family History Father Lung cancer Mother Cancer of unknown origin Sister Lung cancer, Onset Age: 57 Sister Melanoma, Onset Age: 44 Sister Lung cancer, Onset Age: 70 Brother Lung cancer Brother Lung cancer Son Melanoma Social History Household Members: Spouse Housing: House Are you a primary hospice care sales consultant to a significant other at home: No Do you presently have visiting nurse or other home services: No Alcohol intake: never Patient Tobacco Use Status: Former Tobacco user Tobacco use type: Cigarette service: No Current occupational status: retired Review of Systems Const All systems reviewed & are unremarkable except as noted in HPI and below Eyes Reports no additional complaints ENT Reports hoarseness (mild ) and Reports nasal congestion (Mild chronic) Card Reports no additional complaints, Denies chest pain, Denies irregular heart rhythm and Denies leg edema Resp Reports as per HPI GI Reports no additional complaints Reports no additional complaints Musc Reports back pain Skin/Breast Reports system reviewed and no additional complaints, except as documented Neuro Reports no additional complaints Psych Reports no additional complaints Physical Exam Vital Signs: Last Vital Signs Pulse 77 10/19/23 10:51 BP 120/84 10/19/23 10:51 Pulse Ox 95 10/19/23 10:51 Oxygen Delivery Method Room Air 10/19/23 10:51 BMI result Body Mass Index 31.8 Const General: comfortable, no acute distress, alert and awake Orientation/consciousness: patient oriented x3 HEENT Head: Yes normal to inspection General nose exam: No nasal polyps present, No nasal discharge present and Other nasal findings present (Chronic nasal congestion) Face and sinus: Yes sinuses nontender Mouth: oropharynx normal (NO THRUSH OR MUCOPURULENT SECRETIONS NOTED) Throat: Yes posterior oropharynx normal Eyes General: appearance normal, both eyes and all related structures Neck Neck: Yes normal visual inspection, Yes no lymphadenopathy, Yes trachea midline and Yes no JVD Thyroid: Thyroid normal Chest Chest palpation & inspection: normal inspection of the chest, normal palpation of entire chest wall and no tenderness Resp Other: Percussion note resonant, breath sounds are equal on both sides but with prolonged expiratory phase. There are no wheezes or rhonchi and no crepitations. Cardio Palpation: normal PMI Rate: regular rate Rhythm: regular rhythm Heart sounds: no gallops and no murmurs GI Palpation (GI): Soft to palpation, nontender, No hepatosplenomegaly present and no masses Auscultation: normal bowel sounds Back/Spine/Pelvis Thoracic/Lumbar Spine: thoracic and lumbar spine normal to inspection, thoraco- lumbar ROM limited and thoraco-lumbar spasm Skin General skin exam: no rashes or lesions noted Neuro General: patient oriented x3 and no focal motor deficits Cranial nerves: Yes CN's II-XII intact bilaterally Extrem General: Yes normal to inspection, Yes no clubbing, cyanosis or edema and Yes no calf tenderness Psych Speech and movement: Normal speech and movement present Office Procedures Spirometry Testing Spirometry Comments: Spirometry done in the office, Dr. Velazco has the results results scanned to her chart. 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 SHE IS DOING VERY WELL ON THE CURRENT REGIMEN, AND WILL CONTINUE ON THE SAME: Code(s): J44.9 - Chronic obstructive pulmonary disease, unspecified Category: Medical Plan: IPRATROPIUM-ALBUTEROL, SOLUTION BY UPDRAFT T.I.D.. BUDESONIDE 0.5 MG VIA NEBULIZER B.I.D.. ALBUTEROL HFA 1 OR 2 PUFFS Q 4-6 HOURS ONLY P.R.N. (2) Allergic rhinitis: Comment: MILD, CHRONIC, AROUND THE YEAR. CONTROLLED Code(s): J30.9 - Allergic rhinitis, unspecified Category: Medical Plan: FEXOFENADINE 180 MG ONCE A DAY P.R.N. Coding Level of Care Code Est Pt Level 3 (75165) Diagnoses COPD (chronic obstructive pulmonary disease) J44.9 Allergic rhinitis J30.9 CPT Codes Spirometry - CPT: 21790- Spirometry ([id number])
[2023-10-19 10:51] VITALS: BP 120/84; PULSE 77; O2SAT 95; BMI 31.8
== END 2023-10-19 11:32 | disposition home or self-care (01) ==
PROVIDERS: PCP Internal Medicine; Visit Provider Internal Medicine
DX: J44.9 Chronic obstructive pulmonary disease, unspecified (principal); J30.9 Allergic rhinitis, unspecified
CPT/HCPCS: 94010; 99213

== ENCOUNTER → 2023-10-19 10:43 | Outpatient (BNVA) | payer MEDICARE, OTHER, SELFPAY | PROVIDERS: PCP Internal Medicine; Visit Provider Internal Medicine | DX: J44.9 Chronic obstructive pulmonary disease, unspecified (principal); J30.9 Allergic rhinitis, unspecified | CPT/HCPCS: 94010; 99212 ==

== ENCOUNTER 2024-01-12 09:45 | Outpatient (REF) | payer MEDICARE, OTHER, SELFPAY ==
--- NOTE | ~2024-01-12 | MM_ITS ---
EXAMINATION: MM SCREENING DIGITAL BREAST TOMOSYNTHESIS, BILATERAL CLINICAL INFORMATION: Screening. Asymptomatic. COMPARISON: Mammography: This study is compared with prior exams dating back to 1999 and TECHNIQUE: Digital breast tomosynthesis is performed in both the craniocaudal and mediolateral oblique views along with computer-aided detection (CAD). Synthesized 2D images are generated from the tomosynthesis. FINDINGS: There are scattered areas of fibroglandular density (ACR BI-RADS breast composition Category b). There are no significant masses, abnormal calcifications, or other abnormalities. Stable post surgical changes right breast and axilla. Unchanged right skin thickening. Benign calcifications bilaterally. Stable left retroareolar focal asymmetry with biopsy clip. Evolving calcifications in benign-appearing focal asymmetry anterior inner lower left breast. MM/MM tomosynthesis screening BI IMPRESSION: No mammographic evidence of malignancy. ASSESSMENT: BI-RADS BI-RADS 2 - Benign Findings RECOMMENDATION: Routine annual mammography screening. 1 year F/U This examination should not preclude the clinical evaluation of a suspicious palpable abnormality. This patient's information was entered into a reminder system with a target due date for their next mammogram.
== END 2024-01-12 09:46 | disposition home or self-care (01) ==
LOC: HO.MAMMO 09:45
PROVIDERS: PCP Internal Medicine; Visit Provider Internal Medicine
DX: Z12.31 Encounter for screening mammogram for malignant neoplasm of breast (principal)
CPT/HCPCS: 77063; 77067

== ENCOUNTER 2024-02-22 10:49 | Outpatient (AMB) | payer MEDICARE, OTHER, SELFPAY ==
--- NOTE | 2024-02-22 10:59 | MHC.OFFVIS ---
Vital Signs 02/22/24 11:00 Height 5 ft 2 in Weight 177 lb 7.554 oz BMI 32.5 BP 110/78 Blood Pressure Location Lt brachial Position Sitting Pulse 68 Pulse Source Pulse Oximeter Pulse Oximetry (%) 95 Oxygen Delivery Method Room Air Intake Visit Reasons: Cough Intake Note: pt is here for follow up and states lately she has been loosing her voice , please send in albuterol hfa to pharmacy. 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 Operator Required: No Allergies baclofen Allergy (Intermediate, Verified 02/22/24 11:40) rash/swelling beet Allergy (Intermediate, Verified 02/22/24 11:40) tongue swelling celecoxib [From Celebrex] Allergy (Intermediate, Verified 02/22/24 11:40) rash/swelling Medication List - Last Reconciled 02/22/24 by Mann Velazco MD albuterol sulfate 90 mcg/actuation (Ventolin HFA) 2 puffs inhalation Q4-6H PRN 30 days amlodipine 5 mg PO DAILY budesonide 0.5 mg (2 mL) PO BID fexofenadine (Destinee Allergy) 180 mg PO DAILY gabapentin 300 mg PO BID glipizide ER 5 mg PO BID insulin glargine (Lantus Solostar U-100 Insulin) 100 units subcut DAILY ipratropium-albuterol 0.5 mg-3 mg(2.5 mg base)/3 mL 3 mL inhalation Q4-6H PRN irbesartan 1 tab PO DAILY levothyroxine 75 mcg PO DAILY metoprolol succinate ER 50 mg PO DAILY montelukast 10 mg PO BEDTIME 30 days omeprazole 20 mg PO DAILY simvastatin 20 mg PO DAILY vitamins A,C,F-ccfh-yrvkcg 4,296 mcg-226 mg-90 mg (PreserVision AREDS) 1 cap PO BID Do you need a note to return to daycare/school/sports/work: No HPI HPI Cough: Details: Aliya is now 83 years old female. Comes after 4 months for follow-up. Breathing reyes has remained very stable without any acute exacerbations. She uses ipratropium-albuterol in the nebulizer about twice a day and hardly needs to use any extra does. Continues to use budesonide 0.5 mg in the nebulizer b.i.d.. Allergic rhinitis symptoms are under good control with the use of montelukast daily and Flonase as needed. So overall her breathing status has remained very stable. In the recent months she fell down in the shower and did sustain injuries to the left ribcage as well as the vertebral fractures. Luckily she has healed and overcome these injuries. Now she is back to her baseline , remains active in the house. [facility] Medical History Asthma Cough Bronchitis COVID-19 vaccine series completed Iron deficiency anemia Elevated cholesterol HTN (hypertension) Diabetes GERD (gastroesophageal reflux disease) Hypothyroid Hx of nephrolithotomy with removal of calculi COPD (chronic obstructive pulmonary disease) Allergic rhinitis History of right breast cancer Surgical History Status post lumbar spine surgery for decompression of spinal cord Hx of cystoscopy Hx of cataract extraction History of esophagogastroduodenoscopy (EGD) Hx of right breast biopsy (10/27/03) History of vocal cord polypectomy (08/10/12) History of colonoscopy (2008) History of lumpectomy of right breast (07/01/07) History of excision of lesion (01/2001) History of cholecystectomy (1999) History of left breast biopsy (1992) Family History Father Lung cancer Mother Cancer of unknown origin Sister Lung cancer, Onset Age: 57 Sister Melanoma, Onset Age: 44 Sister Lung cancer, Onset Age: 70 Brother Lung cancer Brother Lung cancer Son Melanoma Social History Household Members: Spouse Housing: House Are you a primary childbirth and infant care teacher to a significant other at home: No Do you presently have visiting nurse or other home services: No Alcohol intake: never Patient Tobacco Use Status: Former Tobacco user Tobacco use type: Cigarette service: No Current occupational status: retired Review of Systems Const All systems reviewed & are unremarkable except as noted in HPI and below Eyes Reports no additional complaints ENT Reports hoarseness (mild ) and Reports nasal congestion (Mild chronic) Card Reports no additional complaints, Denies chest pain, Denies irregular heart rhythm and Denies leg edema Resp Reports as per HPI GI Reports no additional complaints Reports no additional complaints Musc Reports back pain Skin/Breast Reports system reviewed and no additional complaints, except as documented Neuro Reports no additional complaints Psych Reports no additional complaints Physical Exam Const General: comfortable, no acute distress, alert and awake Orientation/consciousness: patient oriented x3 HEENT Head: Yes normal to inspection General nose exam: No nasal polyps present, No nasal discharge present and Other nasal findings present (Chronic nasal congestion) Face and sinus: Yes sinuses nontender Mouth: oropharynx normal (NO THRUSH OR MUCOPURULENT SECRETIONS NOTED) Throat: Yes posterior oropharynx normal Eyes General: appearance normal, both eyes and all related structures Neck Neck: Yes normal visual inspection, Yes no lymphadenopathy, Yes trachea midline and Yes no JVD Thyroid: Thyroid normal Chest Chest palpation & inspection: normal inspection of the chest, normal palpation of entire chest wall and no tenderness Resp Other: Percussion note resonant, breath sounds are equal on both sides but with prolonged expiratory phase. There are no wheezes or rhonchi and no crepitations. Cardio Palpation: normal PMI Rate: regular rate Rhythm: regular rhythm Heart sounds: no gallops and no murmurs GI Palpation (GI): Soft to palpation, nontender, No hepatosplenomegaly present and no masses Auscultation: normal bowel sounds Back/Spine/Pelvis Thoracic/Lumbar Spine: thoracic and lumbar spine normal to inspection, thoraco-lumbar ROM limited and thoraco-lumbar spasm Skin General skin exam: no rashes or lesions noted Neuro General: patient oriented x3 and no focal motor deficits Cranial nerves: Yes CN's II-XII intact bilaterally Extrem General: Yes normal to inspection, Yes no clubbing, cyanosis or edema and Yes no calf tenderness Psych Speech and movement: Normal speech and movement present Assessment & Plan Assessment & Plan (1) COPD (chronic obstructive pulmonary disease): Comment: PATIENT HAS COMBINATION OF CHRONIC OBSTRUCTIVE PULMONARY DISEASE AND 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 SHE IS DOING VERY WELL ON THE CURRENT REGIMEN, AND WILL CONTINUE ON THE SAME: Code(s): J44.9 - Chronic obstructive pulmonary disease, unspecified Category: Medical Plan: Continue budesonide 0.5 mg in the nebulizer b.i.d.. Ipratropium-albuterol solution in the nebulizer Q 6 hours while awake, but it is okay to use just twice a day as long as the breathing is stable. May use albuterol HFA 2 puffs Q 4-6 hours p.r.n. when outdoors. ( script renewed) (2) Allergic rhinitis: Comment: MILD, CHRONIC, AROUND THE YEAR. CONTROLLED Code(s): J30.9 - Allergic rhinitis, unspecified Category: Medical Plan: Montelukast 10 mg daily. Fexofenadine 180 mg once a day p.r.n. (3) Asthma: Comment: SHE HAS FEATURES OF ASTHMA/COPD . IT IS WELL CONTROLLED AND STABLE. Code(s): J45.909 - Unspecified asthma, uncomplicated Category: Medical Plan: TREATMENT : SEE UNDER COPD. Medications: Refilled albuterol sulfate 90 mcg/actuation (Ventolin HFA) 2 puffs inhalation Q4-6H 30 days PRN 8.5 grams 5RF shortness of breath or wheezing Coding Level of Care Code Est Pt Level 3 (67817) Diagnoses COPD (chronic obstructive pulmonary disease) J44.9 Allergic rhinitis J30.9 Asthma J45.909
[2024-02-22 11:00] VITALS: BP 110/78; PULSE 68; O2SAT 95; BMI 32.5
== END 2024-02-22 11:38 | disposition home or self-care (01) ==
PROVIDERS: PCP Internal Medicine; Visit Provider Internal Medicine
DX: J44.9 Chronic obstructive pulmonary disease, unspecified (principal); J30.9 Allergic rhinitis, unspecified; J45.909 Unspecified asthma, uncomplicated
CPT/HCPCS: 99213

== ENCOUNTER → 2024-02-22 10:49 | Outpatient (BNVA) | payer MEDICARE, OTHER, SELFPAY | PROVIDERS: PCP Internal Medicine; Visit Provider Internal Medicine | DX: J44.9 Chronic obstructive pulmonary disease, unspecified (principal); J45.909 Unspecified asthma, uncomplicated | CPT/HCPCS: 99212 ==

== ENCOUNTER 2024-04-26 07:52 | Outpatient (REF) | payer MEDICARE, OTHER, SELFPAY ==
--- NOTE | ~2024-04-26 | MM_ITS ---
EXAMINATION: MM DIAGNOSTIC DIGITAL BREAST TOMOSYNTHESIS, LEFT CLINICAL INFORMATION: Diagnostic exam; follow-up for one view asymmetry lateral left breast on CC view only. No correlate on the MLO. COMPARISON: Mammography: 01/12/2024, 01/08/2023, and priors available. TECHNIQUE: Digital left breast tomosynthesis is performed in the following views: Full field 3-D digital left ML view, as well as 3-D spot compression left CC and MLO views. Computer-aided diagnosis was used for this study. FINDINGS: There are scattered areas of fibroglandular density (ACR BI-RADS breast composition Category b). Diagnostic views demonstrate the asymmetry in the lateral left breast on the CC projection does not persist on spot compression views. No correlate on the spot compression MLO, or full field MLO view is present. Findings are consistent with superimposition artifact of normal overlapping tissues. There are no suspicious findings. There are a few benign-appearing scattered calcifications. MM/MM tomosynthesis added views L IMPRESSION: -There are no persistent findings suspicious for malignancy left breast. -Recommend the patient return to routine annual screening mammography. ASSESSMENT: BI-RADS BI-RADS 2 - Benign Findings RECOMMENDATION: 1 year F/U Results were provided to the patient at time of visit by the technologist. This patient's information was entered into a reminder system with a target due date for their next mammogram. Electronically signed by: Jason Sam MD 04/26/2024 08:49 AM [facility] Workstation: [id number]
--- NOTE | ~2024-04-26 | MM_ITS ---
EXAMINATION: BONE DENSITOMETRY CLINICAL INDICATION: Osteopenia. COMPARISON: Previous BD dated 04/24/2022 and baseline BD dated 07/15/2007. TECHNIQUE: Using a Purple Blue Bo DXA System (software version: 13.1) manufactured by [employer], dual-energy x-ray absorptiometry was performed of the lumbar spine and left hip. The images are of good technical quality. Summary results are attached. FINDINGS: LEFT FEMUR, NECK: Current: BMD 0.795 g/cm2, Z-score 0.3, T-score -1.8, osteopenia. Prior: BMD 0.801 g/cm2. Baseline: BMD 0.850 g/cm2. LEFT FEMUR, TOTAL: Current: BMD 0.851 g/cm2, Z-score 0.7, T-score -1.2, osteopenia, 0.1% decrease from previous, 7.6% decrease from baseline (<5% change is not significant). Prior: BMD 0.852 g/cm2. Baseline: BMD 0.921 g/cm2. AP SPINE L1-L4: Current: BMD 1.031 g/cm2, Z-score 0.2, T-score -1.2, osteopenia, 8.0% decrease from previous, 8.6% decrease from baseline (<5% change is not significant). Prior: BMD 1.121 g/cm2. Baseline: BMD 1.128 g/cm2. IDENTIFIED RISK FACTORS: Menopause, history of fracture (adult), anticonvulsant, osteoporosis, rheumatoid arthritis, thiazide. HISTORY OF FRACTURE: Spine, other. MEDICATIONS: Calcium, vitamin D. MM/XR DEXA axial skeleton IMPRESSION: 1. DIAGNOSIS: Osteopenia based on the lowest T-score value of -1.8 in the femoral neck applying World Health Organization criteria. 2. 10-YEAR FRACTURE RISK PREDICTION, FRAX: Major osteoporotic fracture (clinical spine, forearm, hip or shoulder) 25.8%. Hip fracture 7.3%. 3. Treatment Recommendations: NOF guidelines recommend consideration for treatment in postmenopausal women and men age 50 and older presenting with the following: -A hip or vertebral (clinical or morphometric) fracture. -T-score less than or equal to -2.5 at the femoral neck or spine after appropriate evaluation to exclude secondary causes. -Low bone mass at the hip or spine and a 10-year fracture probability by FRAX of greater than or equal to 3% for hip fracture or greater than or equal to 20% for major osteoporotic fracture based on the [place] adapted WHO algorithm. 4. Other Recommendations: All treatment decisions require clinical judgment and consideration of individual patient factors, including patient preferences, comorbidities, previous drug use, risk factors not captured in the FRAX model (e.g. frailty, falls, vitamin D deficiency, increased bone turnover, interval significant decline in bone density) and possible under or overestimation of fracture risk by FRAX. Additional medical evaluation for secondary cause of low bone mineral density may be appropriate. FUTURE SCAN RECOMMENDATION: People with diagnosed cases of osteoporosis or at high risk for fracture should have regular bone mineral density tests. For patients eligible for Medicare, routine testing is allowed once every 2 years. The testing frequency can be increased to one year for patients who have rapidly progressing disease, those who are receiving or discontinuing medical therapy to restore bone mass, or have additional risk factors. Electronically signed by: Ga Hurtado MD 04/27/2024 09:07 AM [facility]
== END 2024-04-26 07:53 | disposition home or self-care (01) ==
LOC: HO.MAMMO 07:52
PROVIDERS: Absent Provider Internal Medicine Medical Oncology; PCP Internal Medicine; Visit Provider Internal Medicine
DX: N64.89 Other specified disorders of breast (principal); Z13.820 Encounter for screening for osteoporosis; M85.80 Other specified disorders of bone density and structure, unspecified site; Z78.0 Asymptomatic menopausal state
CPT/HCPCS: 77061; 77065; 77080

== ENCOUNTER → 2024-04-26 08:15 | Outpatient (BNV) | payer MEDICARE, OTHER, SELFPAY | PROVIDERS: Absent Provider Internal Medicine Medical Oncology; PCP Internal Medicine; Visit Provider Radiology Diagnostic Radiology | DX: R92.8 Other abnormal and inconclusive findings on diagnostic imaging of breast (principal) | CPT/HCPCS: 77065; G0279 ==

== ENCOUNTER 2024-06-19 08:14 | Outpatient (REF) | payer MEDICARE, OTHER, SELFPAY ==
[2024-06-19 10:22] LABS: MANUAL DIFF FLAG NO
[2024-06-19 10:31] LABS: Basophils Absolute Auto 0.1 X10*3/uL (0.0-0.2); Basophils Percent Auto 0.6 % (0-2); Eosinophils Absolute Auto 0.3 X10*3/uL (0.0-0.4); Hematocrit 40.5 % (37.0-47.0); Hemoglobin 13.4 g/dl (12.0-16.0); Imm Gran Abs Auto 0.04 X10*3/uL (0.00-0.03); Imm Gran Pct Auto 0.5 % (0.0-0.4); Lymphocytes Absolute Auto 1.8 X10*3/uL (1.2-4.9); Lymphocytes Percent Auto 20.6 % (20-40); Mean Corpuscular HGB Conc 33.1 g/dl (31.0-35.0); Mean Corpuscular Hemoglobin 29.6 pg (27.0-33.0); Mean Corpuscular Volume 89.4 fL (80.0-98.0); Mean Platelet Volume 10.2 fL (9.4-12.3); Monocytes Absolute Auto 0.6 X10*3/uL (0.1-1.2); Monocytes Percent Auto 6.9 % (2-11); Neutrophils Absolute Auto 5.8 x10*3/uL (2.0-8.3); Neutrophils Percent Auto 67.4 % (45-73); Platelet Count 203 X10*3/uL (160-400); Red Blood Count 4.53 X10*6/uL (4.20-5.50); Red Cell Distribution Width 13.5 % (11.0-16.0); White Blood Count 8.6 X10*3/uL (4.8-10.8)
[2024-06-19 10:47] LABS: Estimated Average Glucose 140 mg/dL; Hemoglobin A1C 156.8637 umol/L; Hemoglobin A1c % 6.5 % (<6.0); Total Hemoglobin (HGBA1C) 3332.4735 umol/L
[2024-06-19 11:03] LABS: Alanine Aminotransferase 19 U/L (0-31); Albumin Level 4.2 g/dL (3.5-5.0); Alkaline Phosphatase 56 U/L (39-117); Anion Gap 12 (12-20); Aspartate Amino Transferase 31 U/L (5-31); Bilirubin Total 0.6 mg/dL (0.0-1.0); Blood Urea Nitrogen 10 mg/dL (9-16); Calcium 9.3 mg/dL (8.4-10.2); Carbon Dioxide 29 mmol/L (22-29); Chloride 105 mmol/L (96-108); Cholesterol 140 mg/dL (<200); Estimated Glomerular Filt Rate > 60; Glucose Fasting 121 mg/dL (60-99); HDL Cholesterol 58 mg/dL (>40); LDL Cholesterol Calculated 60 mg/dL (<100); Potassium 4.2 mmol/L (3.3-5.1); Sodium 142 mmol/L (135-145); Total Protein 7.4 g/dL (6.5-8.0); Triglycerides 114 mg/dL (<150)
[2024-06-19 11:22] LABS: Free T4 (Free Thyroxine) 1.08 ng/dL (0.71-1.85)
[2024-06-19 11:27] LABS: Creatinine Urine 111.59 mg/dL; Microalbum/Creatinine Ratio Ur 144.2 ug/mg cr (<30)
== END 2024-06-19 08:15 | disposition home or self-care (01) ==
LOC: HO.HMGCLDS 08:14
PROVIDERS: PCP Internal Medicine; Visit Provider Internal Medicine
DX: E11.9 Type 2 diabetes mellitus without complications (principal); I10 Essential (primary) hypertension; E78.00 Pure hypercholesterolemia, unspecified; E03.9 Hypothyroidism, unspecified; K21.9 Gastro-esophageal reflux disease without esophagitis; M85.80 Other specified disorders of bone density and structure, unspecified site
CPT/HCPCS: 36415; 80053; 80061; 82043; 82306; 82570; 83036; 84439; 84443; 85025

== ENCOUNTER 2024-07-13 10:28 | Outpatient (AMB) | payer MEDICARE, OTHER, SELFPAY ==
--- NOTE | 2024-07-13 10:36 | MHC.OFFVIS ---
Vital Signs 07/13/24 10:42 Height 5 ft 2 in Weight 178 lb BMI 32.6 BP 181/79 H Blood Pressure Location Lt brachial Position Sitting Pulse 76 Intake Visit Reasons: 1 yr breast exam Intake Note: Patient is seen in office for yearly breast exam. Pt c/o: no concerns regarding her breast mm:04/26/24 Electronics Repair Technician Required: No Actuarial Mathematician: Actuarial Mathematician Present Accompanied by: Self / Same As Patient Allergies baclofen Allergy (Intermediate, Verified 07/13/24 10:37) rash/swelling beet Allergy (Intermediate, Verified 07/13/24 10:37) tongue swelling celecoxib [From Celebrex] Allergy (Intermediate, Verified 07/13/24 10:37) rash/swelling Medication List - Last Reconciled 07/13/24 by Joaquin Bui MD albuterol sulfate 90 mcg/actuation (Ventolin HFA) 2 puffs inhalation Q4-6H PRN 30 days amlodipine 5 mg PO DAILY budesonide 0.5 mg (2 mL) PO BID fexofenadine (Destinee Allergy) 180 mg PO DAILY gabapentin 300 mg PO BID glipizide ER 5 mg PO BID insulin glargine (Lantus Solostar U-100 Insulin) 100 units subcut DAILY ipratropium-albuterol 0.5 mg-3 mg(2.5 mg base)/3 mL 3 mL inhalation Q4-6H PRN irbesartan 1 tab PO DAILY levothyroxine 75 mcg PO DAILY metoprolol succinate ER 50 mg PO DAILY montelukast 10 mg PO BEDTIME 90 days omeprazole 20 mg PO DAILY simvastatin 20 mg PO DAILY vitamins A,C,G-bfwk-jvpcmf 4,296 mcg-226 mg-90 mg (PreserVision AREDS) 1 cap PO BID HPI Comments Details: 83-year-old female patient returning for 1 year follow-up breast examination after a right breast lumpectomy with needle localization and sentinel node biopsy performed by Dr. Amado on 06/21/2007. Pathology revealed a right breast invasive medullary carcinoma, 2.5 cm, grade 2, ER/MS positive, HER2 Armin negative, sentinel lymph node negative (pT2 N0(sn)(i-) Mx). She subsequently underwent radiation therapy followed by tamoxifen which was later switched to Arimidex. Following the biopsy she developed increased scar tissue around the right breast lumpectomy site which was evaluated with MRI, mammogram, and ultrasound as well as a core biopsy as well as wide excision.? The results were benign, determined to be related to treatment change.? She underwent a core biopsy in 09/21/2012 which revealed benign fibrous tissue.?? A follow-up MRI on 10/13/2013 revealed an area of linear clumped enhancement in the region of the prior lumpectomy.? Core biopsy on 10/26/2013 showed benign tissue with acute and chronic inflammatory changes. In May 2019 the patient fell at home in the shower and broke a number of ribs on the left side as well as developed a vertebral fracture.? This required a brief hospitalization and subsequent rehab for 10 days. She continues to have back pain and is undergoing pain therapy with injections for this pain. She underwent bilateral back procedures at [facility] which seem to be helping recently. She continues to have right breast pain but denies any new changes. Her latest mammogram including diagnostic mammogram performed on 04/26/2024 revealed no mammographic evidence of malignancy (BI-RADS 2). Follow-up mammogram in 1 year was recommended. [facility] Medical History Asthma Cough Bronchitis COVID-19 vaccine series completed Iron deficiency anemia Elevated cholesterol HTN (hypertension) Diabetes GERD (gastroesophageal reflux disease) Hypothyroid Hx of nephrolithotomy with removal of calculi COPD (chronic obstructive pulmonary disease) Allergic rhinitis History of right breast cancer Surgical History Status post lumbar spine surgery for decompression of spinal cord Hx of cystoscopy Hx of cataract extraction History of esophagogastroduodenoscopy (EGD) Hx of right breast biopsy (10/27/03) History of vocal cord polypectomy (08/10/12) History of colonoscopy (2008) History of lumpectomy of right breast (07/01/07) History of excision of lesion (01/2001) History of cholecystectomy (1999) History of left breast biopsy (1992) Family History Father Lung cancer Mother Cancer of unknown origin Sister Lung cancer, Onset Age: 57 Sister Melanoma, Onset Age: 44 Sister Lung cancer, Onset Age: 70 Brother Lung cancer Brother Lung cancer Son Melanoma Social History Household Members: Spouse Housing: House Are you a primary personal care service provider to a significant other at home: No Do you presently have visiting nurse or other home services: No Alcohol intake: never Patient Tobacco Use Status: Former Tobacco user Tobacco use type: Cigarette service: No Current occupational status: retired Review of Systems Const All systems reviewed & are unremarkable except as noted in HPI and below Card Denies chest pain, Denies irregular heart rhythm and Reports dyspnea on exertion Resp Denies hemoptysis, Denies excessive phlegm production, Denies pain with cough and Reports dyspnea on exertion GI Reports no additional complaints Denies nipple discharge Musc Reports back pain and Reports arthralgias Skin/Breast Reports breast swelling, Reports breast skin changes, Reports breast pain, Reports breast mass, Denies change in pigmentation, Denies nipple discharge and Denies rash Goran/Lymph Denies lymphadenopathy Physical Exam Const General: cooperative, no acute distress and well developed Nutritional Appearance: well nourished Orientation/consciousness: patient oriented x3 Limitations: no limitations Neck Neck: Yes no lymphadenopathy and Yes trachea midline Chest Other: Right breast: Very dense breast tissue/scar tissue especially in the upper outer quadrant with scar retraction and nodularity involving the remaining breast tissue. No discrete mass is appreciated, no skin redness, no nipple discharge, no enlarged lymph nodes, mild tenderness to palpation. Left breast no skin change, no nipple discharge, no nipple retraction, no palpable mass, no enlarged lymph nodes. Resp Effort & Inspection: normal respiratory effort Skin Other: Multiple seborrheic keratoses noted throughout the chest and abdominal wall Neuro Other: Mobility Assessment: 1. 3 meter assessment time (seconds) 6 2. Gait observations: Normal balance and gait General: patient oriented x3 Extrem General: Yes no clubbing, cyanosis or edema Assessment & Plan Assessment & Plan (1) History of right breast cancer: Comment: 2007 Code(s): Z85.3 - Personal history of malignant neoplasm of breast Category: Medical Plan: Patient returns for follow-up examination due to a personal history of right breast cancer. She has significant scarring as results of the previous surgery and radiation therapy. She is underwent multiple biopsies all of which were benign following the initial breast surgery. Patient's most recent mammogram of 04/26/2024 revealed no mammographic evidence of malignancy (BI-RADS 2). Examination today reveals no evidence of recurrence disease although the exam is difficult due to all the scarring in the right breast. I recommended follow-up examination in 1 year. She is welcome to call sooner for any new concerns. Coding Level of Care Code Est Pt Level 3 (27326) Complex EM visit Add On G2211 Diagnoses History of right breast cancer Z85.3
[2024-07-13 10:42] VITALS: BP 181/79; PULSE 76; BMI 32.6
--- OUTSIDE RECORDS SUMMARY | 2024-07-13 14:00 | XMS_ITS | Patient Health Record ---
Author Organization [facility] Address [address] [place] [id number] Care Team Providers Care Peripheral Edp Equipment Operator Name Role Phone Pasquale Wallace MD Primary Care Provider Aaron Ramirez Unavailable [phone] Matthew Guzman Unavailable Unavailable ALLERGIES Allergen (clinical drug ingredient) Drug/Non Drug Allergy documented on EMR Reaction Allergy Type Onset Date Status celecoxib Celecoxib Unknown Drug Allergy Active baclofen Baclofen Unknown Drug Allergy Active REASON FOR REFERRAL No Information MEDICATIONS Medication SIG (Take, Route, Frequency, Duration) Notes Start Date End Date Status Gabapentin 300 MG Oral for 30 Active Levothyroxine Sodium 75 MCG TAKE 1 TABLE T BY MOUTH EVERY DAY Oral for 90 Active Metoprolol Succinate ER 50 MG Oral for 90 Active amLODIPine Besylate 5 MG Oral for 90 Active Destinee Active Irbesartan 150 MG Oral for 90 Active Symbicort Active Simvastatin 20 MG Oral for 90 Active Ventolin HFA Active Omeprazole 20 MG TAKE 1 CAPSULE BY MO UTH EVERY MORNING Oral for 90 Active Calcium Active guaiFENesin-Codeine 100-10 MG/5ML TAKE 5 ML BY MOUTH FOUR TIMES DAILY Oral for 23 Active Glucosamine Active Albuterol Sulfate HFA 108 (90 Base) MCG/ACT INHALE 2 PUFFS BY MOUTH EVERY 4 TO 6 HOURS NEEDED FOR SHORTNESS OF BREATH OR WHEEZING Inhalation for 16 Active glipiZIDE ER 5 MG Oral for 90 Active Ipratropium-Albuterol 0.5-2.5 (3) MG/3ML USE 3 ML VIA NEBULIZER FOUR TIMES DAILY FOR COPD Inhalation for 15 Active Montelukast Sodium 10 MG Oral for 90 Active IMMUNIZATIONS Vaccine Route Administration Date Status Comme nts Influenza Unknown 02/12/2021 Administered Influenza Unknown 03/14/2022 Administered SOCIAL HISTORY Tobacco Use: Social History Observation Description Date Details (start date - stop date) Never Smoker NA - NA Sex Assigned At : Social History Observation Description Sex Assigned At Unknown Tobacco Use/Smoking Question Answer Notes Patient is a nonsmoker Alcohol Screen Question Answer Notes Did you have a drink containing alcohol in the p ast year? No Points 0 Interpretation Negative PROBLEMS Problem Type ICD Code Onset Dates Problem Status W/U Status Risk SNOMED Code Notes Problem Iron deficiency anemia, unspecified iron deficiency anemia type (D50.9) Active confirmed 63495504 Problem Diverticulosis of colon (K57.30) Active confirmed Diverticulosi s of colon (200407748) Problem Iron deficiency anemia (D50.9) Active confirmed Iron deficien cy anemia (28223143) PLAN OF TREATMENT Pending Test Test Name Order Date IRON + IBC (FE) 10/28/2021 IRON + IBC (FE) 08/27/2021 CBC w DIFF 10/28/2021 CBC w DIFF 08/27/2021 Ferritin 08/27/2021 Ferritin 10/28/2021 Future Test Test Name Order Date UPPER GI ENDOSCOPY 07/15/2021 COLONOSCOPY 07/15/2021 Insurance Providers Payer Name Payer Address Payer Phone Subscriber Number Group Number Insured Name Patient Relationship to Insured Coverage Start Date Coverage End Date [place] [address] [place] [address] [id number] REAGAN BARR Self - patient is the insured [facility] [address] [address] [place] [address] [phone] [id number] REAGAN BARR Self - patient is the insured MEDICAL (GENERAL) HISTORY Medical History History ICD Code Kidney stones NIDDM COPD/Asthma Back pain/hx of fall--she is going for some type of spinal injection on 07/22/2021 at [facility] Hx of carcinoma of the right breast Osteopenia EGD/Colonoscopy in 2006--the upper endoscopy revealed a hiatal hernia, but no significant esophagitis or Aly's esophagus; the colonoscopy was normal, including biopsies that were negative for microscopic colitis Denies [place],CVA,renal disease Hypertension Hypothyroidism Hyperlipidemia Iron-deficiency anemia--bert Guzman--receiving her first iron infusion on 07/16/2021. She had a below GI workup and stabilized on oral iron. She did not have a small bowel video capsule study due to the normalization of her laboratories and her age. EGD 08/2021--small hiatal her loretta, negative duodenal biopsies in regard to celiac disease Colonoscopy 08/2021--one tubu lovillous adenoma; no angiodysplasias nor colitis although the prep was somewhat limited Surgical History Surgery Date(Month/Year) Right breast lumpectomy x 2, and XRT x 1 Cholecystectomy
== END 2024-07-13 10:56 | disposition home or self-care (01) ==
PROVIDERS: PCP Internal Medicine; Visit Provider Surgery
DX: Z85.3 Personal history of malignant neoplasm of breast (principal)
CPT/HCPCS: 99213; G2211

== ENCOUNTER → 2024-07-13 10:28 | Outpatient (BNVA) | payer MEDICARE, OTHER, SELFPAY | PROVIDERS: PCP Internal Medicine; Visit Provider Surgery | DX: Z85.3 Personal history of malignant neoplasm of breast (principal); Z92.3 Personal history of irradiation | CPT/HCPCS: 99212 ==

== ENCOUNTER 2024-08-24 09:45 | Outpatient (AMB) | payer MEDICARE, OTHER, SELFPAY ==
[2024-08-24 10:11] VITALS: BP 110/74; PULSE 71; O2SAT 95; BMI 32.5
--- NOTE | 2024-08-24 10:11 | A.OFFVIS_ITS ---
Vital Signs 08/24/24 10:11 Height 5 ft 2 in Weight 177 lb 7.554 oz BMI 32.5 BP 110/74 Blood Pressure Location Lt brachial Position Sitting Pulse 71 Pulse Source Pulse Oximeter Pulse Oximetry (%) 95 Oxygen Delivery Method Room Air Intake Visit Reasons: Cough Intake Note: pt is here for follow up and states she does have shortness of breath with walking, using nebulizer, no coughing at night. Degreasing Solution Reclaimer Required: No Allergies baclofen Allergy (Intermediate, Verified 08/24/24 10:40) rash/swelling beet Allergy (Intermediate, Verified 08/24/24 10:40) tongue swelling celecoxib [From Celebrex] Allergy (Intermediate, Verified 08/24/24 10:40) rash/swelling Medication List - Last Reconciled 08/24/24 by Mann Velazco MD albuterol sulfate 90 mcg/actuation (Ventolin HFA) 2 puffs inhalation Q4-6H PRN 30 days amlodipine 5 mg PO DAILY budesonide 0.5 mg (2 mL) inhalation BID fexofenadine (Destinee Allergy) 180 mg PO DAILY glipizide ER 5 mg (2 x 2.5 mg) PO BID insulin glargine (Lantus Solostar U-100 Insulin) 100 units subcut DAILY ipratropium-albuterol 0.5 mg-3 mg(2.5 mg base)/3 mL 3 mL inhalation Q4-6H PRN irbesartan 1 tab PO DAILY levothyroxine 75 mcg PO DAILY metoprolol succinate ER 50 mg PO DAILY montelukast 10 mg PO BEDTIME 90 days omeprazole 20 mg PO DAILY simvastatin 20 mg PO DAILY vitamins A,C,T-xuvy-qweqli 4,296 mcg-226 mg-90 mg (PreserVision AREDS) 1 cap PO BID Do you need a note to return to daycare/school/sports/work: No HPI HPI Cough: Details: REAGAN IS 84 YEARS OLD FEMALE. COMING AFTER 6 MONTHS FOR FOLLOW-UP FOR HER ASTHMA/COPD. BREATHING THACKER HAS BEEN RELATIVELY STABLE, WITHOUT ANY ACUTE EXACERBATION. SHE HAS CHRONIC ALLERGIC RHINITIS AND HAS FLARE UPS OF NASAL CONGESTION WITH POSTNASAL DISCHARGE WHICH MAKES HER BREATHING LITTLE BIT WORSE SOMETIMES. SHE IS ON A RELATIVELY SIMPLE REGIMEN OF BUDESONIDE IN THE NEBULIZER TWICE A DAY AND IPRATROPIUM-ALBUTEROL IN THE NEBULIZER TWICE A DAY OR MAY BE SOMETIMES 3 TIMES A DAY. FOR OUTDOORS SHE USES ALBUTEROL ONCE IN A WHILE. FOR HER ALLERGIC RHINITIS SHE CONTINUES TO USE MONTELUKAST DAILY AND FEXOFENADINE ONCE A DAY P.R.N.. [facility] Medical History Asthma Cough Bronchitis COVID-19 vaccine series completed Iron deficiency anemia Elevated cholesterol HTN (hypertension) Diabetes GERD (gastroesophageal reflux disease) Hypothyroid Hx of nephrolithotomy with removal of calculi COPD (chronic obstructive pulmonary disease) Allergic rhinitis History of right breast cancer Surgical History Status post lumbar spine surgery for decompression of spinal cord Hx of cystoscopy Hx of cataract extraction History of esophagogastroduodenoscopy (EGD) Hx of right breast biopsy (10/27/03) History of vocal cord polypectomy (08/10/12) History of colonoscopy (2008) History of lumpectomy of right breast (07/01/07) History of excision of lesion (01/2001) History of cholecystectomy (1999) History of left breast biopsy (1992) Family History Father Lung cancer Mother Cancer of unknown origin Sister Lung cancer, Onset Age: 57 Sister Melanoma, Onset Age: 44 Sister Lung cancer, Onset Age: 70 Brother Lung cancer Brother Lung cancer Son Melanoma Social History Household Members: Spouse Housing: House Are you a primary healthcare economics manager to a significant other at home: No Do you presently have visiting nurse or other home services: No Alcohol intake: never Patient Tobacco Use Status: Former Tobacco user Tobacco use type: Cigarette service: No Current occupational status: retired Review of Systems Const All systems reviewed & are unremarkable except as noted in HPI and below Eyes Reports no additional complaints ENT Reports hoarseness (mild ) and Reports nasal congestion (Mild chronic) Card Reports no additional complaints, Denies chest pain, Denies irregular heart rhythm and Denies leg edema Resp Reports as per HPI GI Reports no additional complaints Reports no additional complaints Musc Reports back pain Skin/Breast Reports system reviewed and no additional complaints, except as documented Neuro Reports no additional complaints Psych Reports no additional complaints Physical Exam Vital Signs: Last Vital Signs Pulse 71 08/24/24 10:11 BP 110/74 08/24/24 10:11 Pulse Ox 95 08/24/24 10:11 Oxygen Delivery Method Room Air 08/24/24 10:11 BMI result Body Mass Index 32.5 Const General: comfortable, no acute distress, alert and awake Orientation/consciousness: patient oriented x3 HEENT Head: Yes normal to inspection General nose exam: No nasal polyps present, No nasal discharge present and Other nasal findings present (Chronic nasal congestion) Face and sinus: Yes sinuses nontender Mouth: oropharynx normal (NO THRUSH OR MUCOPURULENT SECRETIONS NOTED) Throat: Yes posterior oropharynx normal Eyes General: appearance normal, both eyes and all related structures Neck Neck: Yes normal visual inspection, Yes no lymphadenopathy, Yes trachea midline and Yes no JVD Thyroid: Thyroid normal Chest Chest palpation & inspection: normal inspection of the chest, normal palpation of entire chest wall and no tenderness Resp Other: Percussion note resonant, breath sounds are equal on both sides but with prolonged expiratory phase. There are no wheezes or rhonchi and no crepitations. Cardio Palpation: normal PMI Rate: regular rate Rhythm: regular rhythm Heart sounds: no gallops and no murmurs GI Palpation (GI): Soft to palpation, nontender, No hepatosplenomegaly present and no masses Auscultation: normal bowel sounds Back/Spine/Pelvis Thoracic/Lumbar Spine: thoracic and lumbar spine normal to inspection, thoraco- lumbar ROM limited and thoraco-lumbar spasm Skin General skin exam: no rashes or lesions noted Neuro General: patient oriented x3 and no focal motor deficits Cranial nerves: Yes CN's II-XII intact bilaterally Extrem General: Yes normal to inspection, Yes no clubbing, cyanosis or edema and Yes no calf tenderness Psych Speech and movement: Normal speech and movement present Assessment & Plan Assessment & Plan (1) Asthma: Comment: SHE HAS FEATURES OF ASTHMA/COPD . IT IS WELL CONTROLLED AND STABLE, EXCEPT FOR OCCASIONAL FLARE UPS. Code(s): J45.909 - Unspecified asthma, uncomplicated Category: Medical Plan: CONTINUE BUDESONIDE 0.5 MG IN THE NEBULIZER B.I.D. IPRATROPIUM-ALBUTEROL B.I.D. AND Q 6 HOURS P.R.N.. VENTOLIN 2 PUFFS Q 6 HOURS P.R.N. WHEN OUTDOORS (2) Allergic rhinitis: Comment: MILD, CHRONIC, AROUND THE YEAR. CONTROLLED , WITH MILD INTERMITTENT FLARE UPS. Code(s): J30.9 - Allergic rhinitis, unspecified Category: Medical Plan: MONTELUKAST 10 MG DAILY FEXOFENADINE 180 MG ONCE A DAY P.R.N. CAN NOT USE FLONASE. Medications: Refilled montelukast 10 mg PO BEDTIME 90 days 90 tabs 3RF ALLERGIC RHINITIS /ASTHMA Coding Level of Care Code Est Pt Level 3 (75594) Diagnoses Asthma J45.909 Allergic rhinitis J30.9
--- OUTSIDE RECORDS SUMMARY | 2024-08-24 11:48 | XMS_ITS | Patient Health Record ---
Author Organization [facility] Address [address] [place] [id number] Care Team Providers Care Staff Trainer Name Role Phone Pasquale Wallace MD Primary Care Provider Aaron Ramirez Unavailable [phone] Matthew Guzman Unavailable Unavailable Allergies Allergen (clinical drug ingredient) Drug/Non Drug Allergy documented on EMR Reaction Allergy Type Onset Date Status celecoxib Celecoxib Unknown Drug Allergy Active baclofen Baclofen Unknown Drug Allergy Active Reason For Referral No Information Medications Medication SIG (Take, Route, Frequency, Duration) Notes [...] Sodium 10 MG Oral for 90 Active Immunizations Vaccine Route Administration Date Status Comme nts Influenza Unknown 02/12/2021 Administered Influenza Unknown 03/14/2022 Administered Social History Tobacco Use: Social History Observation Description Date Details (start date - stop date) Never Smoker NA - NA Tobacco Use/Smoking Question Answer Notes Patient is a nonsmoker Alcohol Screen Question Answer Notes Did you have a drink containing alcohol in the p ast year? No Points 0 Interpretation Negative Section Notes: Nonsmoker; no alcohol Nonsmoker; no alcohol Nonsmoker; no alcohol Problems Problem Type SNOMED Code ICD Code Onset Dates Problem Status W/U Status Risk Notes Problem Iron deficiency anemia (93473706) Iron deficiency anemia (D50.9) Active confirmed Problem 57198956 Iron deficiency anemia, unspecified iron deficiency anemia type (D50.9) Active confirmed Problem Diverticulosis of colon (927614134) Diverticulosis of colon (K57.30) Active confirmed Plan Of Treatment Pending Test Test Name Order Date IRON + IBC (FE) 08/27/2021 IRON + IBC (FE) 10/28/2021 CBC w DIFF 08/27/2021 CBC w DIFF 10/28/2021 Ferritin 10/28/2021 Ferritin 08/27/2021 Future Test Test Name Order Date UPPER GI ENDOSCOPY 07/15/2021 COLONOSCOPY 07/15/2021 Insurance Providers Payer Name Payer Address Payer Phone Subscriber Number Group Number Insured Name Patient Relationship to Insured Coverage Start Date Coverage End Date [place] [address] [place] [address] [phone] [id number] REAGAN BARR Self - patient is the insured [facility] [address] [address] [place] [address] [id number] REAGAN BARR Self - patient is the insured Medical (General) History Medical History History ICD Code Kidney stones NIDDM COPD/Asthma Back pain/hx of fall--she is going for some type of spinal injection on 07/22/2021 at [facility] Hx of carcinoma of the right breast Osteopenia EGD/Colonoscopy in 2006--the upper endoscopy revealed a hiatal hernia, but no significant esophagitis or Aly's esophagus; the colonoscopy was normal, including biopsies that were negative for microscopic colitis Denies [place],CVA,renal disease Hypertension Hypothyroidism Hyperlipidemia Iron-deficiency anemia--bert Guzman--receiving [...]
== END 2024-08-24 10:41 | disposition home or self-care (01) ==
LOC: HO.HPS 09:46
PROVIDERS: PCP Internal Medicine; Visit Provider Internal Medicine
DX: J45.909 Unspecified asthma, uncomplicated (principal); J30.9 Allergic rhinitis, unspecified
CPT/HCPCS: 99213

== ENCOUNTER → 2024-08-24 09:45 | Outpatient (BNVA) | payer MEDICARE, OTHER, SELFPAY | PROVIDERS: PCP Internal Medicine; Visit Provider Internal Medicine | DX: J44.9 Chronic obstructive pulmonary disease, unspecified (principal); J30.9 Allergic rhinitis, unspecified | CPT/HCPCS: 99212 ==

== ENCOUNTER 2024-11-03 14:04 | Outpatient (AMB) | payer MEDICARE, OTHER, SELFPAY ==
[2024-11-03 14:02] VITALS: BP 140/78; PULSE 74; TEMP 36.5; O2SAT 97; BMI 32.9
--- NOTE | 2024-11-03 14:02 | MHC.PC.OV ---
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 Accompanied by: Self / Same As Patient Allergies baclofen Allergy (Intermediate, Verified 11/03/24 14:02) rash/swelling beet Allergy (Intermediate, Verified 11/03/24 14:02) tongue swelling celecoxib [From Celebrex] Allergy (Intermediate, Verified 11/03/24 14:02) rash/swelling Tobacco use date assessed: 11/03/24 Fall risk assessment: 2 + Falls in past year Last assessed Fall Risk: 11/03/24 Dental Screening Dental Screen Date: 11/03/24 Did you have a dental visit in the last 12 months?: No Did you have a dental problem in the last 6 months where you did not have access to dental care?: No HPI HPI Comments History of Present Illness Details 84 year old female with a past medical history of diabetes, hypertension, hyperlipidemia, hypothyroid, GERD, breast cancer, back pain presenting for follow up Diabetes: Lantus 10 units daily, glipizide 5mg twice daily. Last A1C 6.5%. Eye exam utd History of breast surgery-follows with Dr Fitzpatrcik Pulmonary: Follows [facility]: In May 2019 the patient fell at home in the shower and broke a number of ribs on the left side as well as developed a vertebral fracture.? This required a brief hospitalization and subsequent rehab for 10 days. She continues to have back pain and is undergoing pain therapy with injections for this pain. She underwent bilateral back procedures at [facility]. Is scheduled for epidural injections next week Colonoscopy 2021-Dr Stoll. No further required ROS CONSTITUTIONAL: Denies weight loss, fever and chills. HEENT: Denies changes in vision and hearing. RESPIRATORY: Denies SOB and cough. CV: Denies palpitations and CP GI: Denies abdominal pain, nausea, vomiting and diarrhea. : Denies dysuria and urinary frequency. MSK: Denies new myalgia and joint pain. SKIN: Denies rash and pruritus. NEUROLOGICAL: Denies headache PSYCHIATRIC: Denies recent changes in mood. PHYSICAL EXAM: GENERAL: Alert and oriented x 3. NAD EYES: EOMI. Anicteric. HENT: Moist mucous membranes. No scleral icterus. No cervical lymphadenopathy. LUNGS: Clear to auscultation bilaterally. CARDIOVASCULAR: Regular rate and rhythm. No murmur. No JVD. ABDOMEN: Soft, non-tender +bs EXTREMITIES: No edema. Non-tender. SKIN: No rashes or lesions. Warm. NEUROLOGIC: No focal neurological deficits. CN II-XII grossly intact PSYCHIATRIC: Cooperative. Appropriate mood and affect [facility] Medical History (Updated 11/03/24 @ 14:45 by Kelli Mcneill MD) Asthma Cough Bronchitis COVID-19 vaccine series completed Iron deficiency anemia Elevated cholesterol HTN (hypertension) Diabetes GERD (gastroesophageal reflux disease) Hypothyroid Hx of nephrolithotomy with removal of calculi COPD (chronic obstructive pulmonary disease) Allergic rhinitis History of right breast cancer Surgical History Status post lumbar spine surgery for decompression of spinal cord Hx of cystoscopy Hx of cataract extraction History of esophagogastroduodenoscopy (EGD) Hx of right breast biopsy (10/27/03) History of vocal cord polypectomy (08/10/12) History of colonoscopy (2008) History of lumpectomy of right breast (07/01/07) History of excision of lesion (01/2001) History of cholecystectomy (1999) History of left breast biopsy (1992) Family History Father Lung cancer Mother Cancer of unknown origin Sister Lung cancer, Onset Age: 57 Sister Melanoma, Onset Age: 44 Sister Lung cancer, Onset Age: 70 Brother Lung cancer Brother Lung cancer Son Melanoma Social History Household Members: Spouse Housing: House Are you a primary home care physical therapist to a significant other at home: No Do you presently have visiting nurse or other home services: No Alcohol intake: never Patient Tobacco Use Status: Former Tobacco user Tobacco use type: Cigarette e-Cigarette/Vaping Use: Former Use service: No Current occupational status: retired Cognitive needs: No Hearing needs: No Vision needs: Yes (rx glasses) Questionnaire PHQ-9 Over the last 2 weeks, how often have you been bothered by any of the following problems? 1. Little interest or pleasure in doing things: not at all 2. Feeling down, depressed, or hopeless: not at all 3. Trouble falling or staying asleep, or sleeping too much: not at all 4. Feeling tired or having little energy: not at all 5. Poor appetite or overeating: not at all 6. Feeling bad about yourself - or that you are a failure or have let yourself or your family down: not at all 7. Trouble concentrating on things, such as reading the newspaper or watching television: not at all 8. Moving or speaking so slowly that other people could have noticed. Or the opposite - being so fidgety or restless that you have been moving around a lot more than usual: not at all 9. Thoughts that you would be better off or of hurting yourself in some way: not at all Total score: 0 Depression Screening Interpretation: Negative Depression Screening Done: Yes 33836 - PHQ-9 Billing: Yes Source: Developed by Drs. Aaron Norton, Ema Alcala, Suraj Jacques and colleagues, with an educational jillian from [employer]. Thrive Questionnaire Date Thrive assessed: 11/03/24 I am a: Patient Within the past 12 months, did the food you bought not last and you didn't have the money to get more?: Never true Within the past 12 months, did you worry whether your food would run out before you got money to buy more?: Never true Do you have trouble paying for medicines?: No Do you have trouble getting transportation to medical appointments?: No Do you have trouble paying your heating and electricity bill?: No Do you have trouble taking care of your child, family member or friend?: No Do you have trouble with day-to-day activities such as bathing, preparing meals, shopping, managing finances, etc.?: No Are you currently unemployed and looking for a job?: No Are you interested in more education?: No THRIVE Score: 0 AUDIT C Alcohol Use Questionnaire (AUDIT-C) 1. How often do you have a drink containing alcohol?: Never 3. How often do you have six or more drinks on one occasion?: Never Total Score: 0 YADIRA-7 AMB Questionnaire YADIRA-7 Date YADIRA - 7 assessed: 11/03/24 Feeling nervous, anxious, or on edge: 0 = Not at all Not being able to stop or control worryin = Not at all Worrying too much about different things: 0 = Not at all Trouble relaxin = Not at all Being so restless that it is hard to sit still: 0 = Not at all Becoming easily annoyed or irritable: 0 = Not at all Feeling afraid as if something awful might happen: 0 = Not at all Total YADIRA-7 score (0-4 normal; 5-9 mild; 10-14 moderate; 15-21 severe): 0 Source: Developed by Drs. Aaron Norton, Ema Alcala, Suraj Jacques and colleagues, with an educational jillian from [employer]. Physical exam (Primary Care) Vital Signs: Last Vital Signs Temp 97.7 F 11/03/24 14:02 Pulse 74 11/03/24 14:02 BP 140/78 H 11/03/24 14:02 Pulse Ox 97 11/03/24 14:02 Oxygen Delivery Method Room Air 11/03/24 14:02 BMI result Body Mass Index 32.9 Tobacco/Smoking Status: Tobacco use Status Tobacco use date assessed 11/03/24 11/03/24 14:03 Patient Tobacco Use Status Former Tobacco user 11/03/24 14:03 Tobacco use type Cigarette 11/03/24 14:03 e-Cigarette/Vaping Use Former Use 11/03/24 14:20 PHQ-9: PHQ-9 Score PHQ-9: Total score 0 11/03/24 14:20 Depression Screening Interpretation: Negative Thrive Assessment: Date of Thrive Assessment Date Thrive assessed 11/03/24 11/03/24 14:03 Coding Level of Care Code New Pt Level 4 (80186) Complex EM visit Add On G2211 Diagnoses Type 2 diabetes mellitus without complication, with long-term current use of insulin E11.9; Z79.4 Diabetes mellitus type: type 2 Diabetes mellitus 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 Diabetes mellitus complication status: without complication Primary hypertension I10 Hypertension type: primary hypertension Chronic obstructive pulmonary disease, unspecified COPD type J44.9 COPD type: unspecified COPD History of right breast cancer Z85.3 Additional Codes PHQ-9 - 74599 - PHQ-9 Billing: Yes ([id number]) Assessment & Plan Assessment & Plan (1) Diabetes: Comment: type 2-glucose usually ~ 200 (higher when getting steroid injections)-taking glipizide Code(s): E11.9 - Type 2 diabetes mellitus without complications Category: Medical Qualifiers: Diabetes mellitus type: type 2 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 use: with 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 SHE IS DOING VERY WELL ON THE CURRENT REGIMEN, AND WILL CONTINUE ON THE SAME: Code(s): J44.9 - Chronic obstructive pulmonary disease, unspecified Category: Medical Qualifiers: COPD type: unspecified COPD Qualified Code(s): J44.9 - Chronic obstructive pulmonary disease, unspecified (4) History of right breast cancer: Comment: 2007 Code(s): Z85.3 - Personal history of malignant neoplasm of breast Category: Medical Plan 84 year old to establish care Past medical, surgical, social reviewed Chronic medical conditions stable. Diabetes is well controlled Back pain is very bothersome. She is hesitant to try new medications Orders: Orders Comprehensive Met. Panel Today E11.9 - Type 2 diabetes mellitus without complications, I10 - Essential (primary) hypertension, J30.9 - Allergic rhinitis, unspecified, J44.9 - Chronic obstructive pulmonary disease, unspecified, J45.909 - Unspecified asthma, uncomplicated, R05.9 - Cough, unspecified Lipid Panel Today E11.9 - Type 2 diabetes mellitus without complications, I10 - Essential (primary) hypertension, J30.9 - Allergic rhinitis, unspecified, J44.9 - Chronic obstructive pulmonary disease, unspecified, J45.909 - Unspecified asthma, uncomplicated, R05.9 - Cough, unspecified Complete Blood Count Auto Diff Today E11.9 - Type 2 diabetes mellitus without complications, I10 - Essential (primary) hypertension, J30.9 - Allergic rhinitis, unspecified, J44.9 - Chronic obstructive pulmonary disease, unspecified, J45.909 - Unspecified asthma, uncomplicated, R05.9 - Cough, unspecified Hemoglobin A1c Today E11.9 - Type 2 diabetes mellitus without complications, I10 - Essential (primary) hypertension, J30.9 - Allergic rhinitis, unspecified, J45.909 - Unspecified asthma, uncomplicated TSH reflex Free T4 Today E11.9 - Type 2 diabetes mellitus without complications, I10 - Essential (primary) hypertension, J30.9 - Allergic rhinitis, unspecified, J44.9 - Chronic obstructive pulmonary disease, unspecified, J45.909 - Unspecified asthma, uncomplicated, R05.9 - Cough, unspecified Medications: New trazodone 50 mg PO BEDTIME PRN 90 tabs 1RF sleep gabapentin 600 mg (2 x 300 mg) PO BID 180 caps 3RF Changed From insulin glargine (Lantus Solostar U-100 Insulin) 100 units subcut DAILY 15 mL 1RF To insulin glargine (Lantus Solostar U-100 Insulin) 10 units (0.1 mL) subcut DAILY 15 mL 1RF
== END 2024-11-03 14:41 | disposition home or self-care (01) ==
LOC: HO.HMCHD 14:04
PROVIDERS: PCP Internal Medicine; Visit Provider Internal Medicine
DX: E11.9 Type 2 diabetes mellitus without complications (principal); Z79.4 Long term (current) use of insulin; I10 Essential (primary) hypertension; J44.9 Chronic obstructive pulmonary disease, unspecified; Z85.3 Personal history of malignant neoplasm of breast

== ENCOUNTER → 2024-11-03 14:04 | Outpatient (BNVA) | payer MEDICARE, OTHER, SELFPAY | PROVIDERS: PCP Internal Medicine; Visit Provider Internal Medicine | DX: E11.9 Type 2 diabetes mellitus without complications (principal); I10 Essential (primary) hypertension; J44.9 Chronic obstructive pulmonary disease, unspecified; Z85.3 Personal history of malignant neoplasm of breast; Z79.4 Long term (current) use of insulin | CPT/HCPCS: 96127; 99202 ==

== ENCOUNTER 2024-12-19 10:16 | Outpatient (REF) | payer MEDICARE, OTHER, SELFPAY ==
--- OUTSIDE RECORDS SUMMARY | 2024-12-19 11:08 | XMS_ITS | Patient Health Record ---
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 Name Role Phone Pasquale Wallace MD Primary Care Provider Aaron Ramirez Unavailable [phone] Matthew Guzman Unavailable Unavailable Allergies Allergen (clinical [...] Status Risk Notes Problem Iron deficiency anemia (50608183) Iron deficiency anemia (D50.9) Active confirmed Problem 81519841 Iron deficiency anemia, unspecified iron deficiency anemia type (D50.9) Active confirmed Problem Diverticulosis of colon (662585562) Diverticulosis of colon (K57.30) Active confirmed Plan Of Treatment Pending Test Test Name Order Date IRON + IBC (FE) 10/28/2021 IRON + IBC (FE) 08/27/2021 CBC w DIFF 08/27/2021 CBC w DIFF 10/28/2021 Ferritin 08/27/2021 Ferritin 10/28/2021 Future Test Test Name Order Date UPPER GI ENDOSCOPY 07/15/2021 COLONOSCOPY 07/15/2021 Insurance Providers Payer Name Payer Address Payer Phone Subscriber Number Group Number Insured Name Patient Relationship to Insured Coverage Start Date Coverage End Date [place] [address] [place] [address] [id number] REAGAN BARR Self - patient is the insured [facility] [address] [address] [place] [address] [phone] [id number] REAGAN BARR Self - patient is the insured Medical (General) History Medical History History ICD Code Kidney stones NIDDM COPD/Asthma Back pain/hx of fall--she is going for some type of spinal injection on 07/22/2021 at [email or web address] Hx of carcinoma of the right breast Osteopenia EGD/Colonoscopy in 2006--the upper endoscopy revealed a hiatal hernia, but no significant esophagitis or Aly's esophagus; the colonoscopy was normal, including biopsies that were negative for microscopic colitis Denies MA,CVA,renal disease Hypertension Hypothyroidism Hyperlipidemia Iron-deficiency anemia--bert Guzman--receiving [...]
[2024-12-19 11:12] LABS: MANUAL DIFF FLAG NO
[2024-12-19 11:23] LABS: Hematocrit 35.9 % (37.0-47.0); Hemoglobin 11.9 g/dl (12.0-16.0); Imm Gran Abs Auto 0.02 X10*3/uL (0.00-0.03); Imm Gran Pct Auto 0.2 % (0.0-0.4); Lymphocytes Absolute Auto 1.7 X10*3/uL (1.2-4.9); Mean Corpuscular HGB Conc 33.1 g/dl (31.0-35.0); Mean Corpuscular Hemoglobin 28.3 pg (27.0-33.0); Mean Corpuscular Volume 85.3 fL (80.0-98.0); NRBC Abs Auto 0.000 X10*3/uL (0.0-0.012); NRBC Pct Auto 0.0 /100WBC (0.0-0.2); Platelet Count 196 X10*3/uL (160-400); Red Blood Count 4.21 X10*6/uL (4.20-5.50); White Blood Count 8.5 X10*3/uL (4.8-10.8)
[2024-12-19 11:42] LABS: Hemoglobin A1C 142.9675 umol/L; Total Hemoglobin (HGBA1C) 3120.8054 umol/L
[2024-12-19 11:48] LABS: Alanine Aminotransferase 20 U/L (0-31); Albumin Level 4.5 g/dL (3.5-5.0); Alkaline Phosphatase 55 U/L (39-117); Anion Gap 11 (12-20); Aspartate Amino Transferase 29 U/L (5-31); Blood Urea Nitrogen 13 mg/dL (9-16); Calcium 9.4 mg/dL (8.4-10.2); Carbon Dioxide 30 mmol/L (22-29); Chloride 104 mmol/L (96-108); Cholesterol 140 mg/dL (<200); Estimated Glomerular Filt Rate > 60; HDL Cholesterol 52 mg/dL (>40); Potassium 4.3 mmol/L (3.3-5.1); Sodium 141 mmol/L (135-145); Total Protein 7.4 g/dL (6.5-8.0); Triglycerides 106 mg/dL (<150)
== END 2024-12-19 10:17 | disposition home or self-care (01) ==
LOC: HO.HMGCLDS 10:16
PROVIDERS: PCP Internal Medicine; Visit Provider Internal Medicine
DX: J44.89 Other specified chronic obstructive pulmonary disease (principal); J30.9 Allergic rhinitis, unspecified; E11.9 Type 2 diabetes mellitus without complications; I10 Essential (primary) hypertension; R05.9 Cough, unspecified
CPT/HCPCS: 36415; 80053; 80061; 83036; 84443; 85025

== ENCOUNTER 2025-01-15 09:24 | Outpatient (REF) | payer MEDICARE, OTHER, SELFPAY ==
--- OUTSIDE RECORDS SUMMARY | 2025-01-15 09:52 | XMS_ITS | Patient Health Record ---
Author Organization [facility] Address [address] [place] [id number] Care Team Providers Care Food Science Technician Name Role Phone Rodrigo (RETIRED) Pasquale MABRY Primary Care Provide r Unavailable Aaron Stoll Unavailable [phone] Matthew Guzman Unavailable Unavailable Allergies Allergen (clinical [...] 20 MG TAKE 1 CAPSULE BY MO UT EVERY MORNING Oral for 90 Active Calcium [...] Status Risk Notes Problem Iron deficiency anemia (58513720) Iron deficiency anemia (D50.9) Active confirmed Problem 28949673 Iron deficiency anemia, unspecified iron deficiency anemia type (D50.9) Active confirmed Problem Diverticulosis of colon (015345259) Diverticulosis of colon (K57.30) Active confirmed Plan [...] Date [place] [address] [place] [address] [id number] REAGAN BARR Self - patient is the insured [facility] [address] [address] [place] [address] [id number] REAGAN BARR Self - patient is the insured Medical (General) History Medical History History ICD Code Kidney stones NIDDM COPD/Asthma Back pain/hx of fall--she is going for some type of spinal injection on 07/22/2021 at [facility] Hx of carcinoma of the right breast Osteopenia EGD/Colonoscopy in 2006--the upper endoscopy revealed a hiatal hernia, but no significant esophagitis or Aly's esophagus; the colonoscopy was normal, including biopsies that were negative for microscopic colitis Denies DC,CVA,renal disease Hypertension Hypothyroidism Hyperlipidemia Iron-deficiency anemia--bert Guzman--receiving [...]
== END 2025-01-15 09:25 | disposition home or self-care (01) ==
LOC: HO.MAMMO 09:24
PROVIDERS: PCP Internal Medicine; Visit Provider Internal Medicine
DX: Z12.31 Encounter for screening mammogram for malignant neoplasm of breast (principal)
CPT/HCPCS: 77063; 77067

== ENCOUNTER → 2025-01-15 09:45 | Outpatient (BNV) | payer MEDICARE, OTHER, SELFPAY | PROVIDERS: PCP Internal Medicine; Visit Provider Internal Medicine | DX: Z12.31 Encounter for screening mammogram for malignant neoplasm of breast (principal) | CPT/HCPCS: 77063; 77067 ==

== ENCOUNTER 2025-02-02 09:49 | Outpatient (AMB) | payer MEDICARE, OTHER, SELFPAY ==
--- NOTE | 2025-02-02 09:51 | A.OFFPC_ITS ---
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: No Accompanied by: Spouse Allergies baclofen Allergy (Intermediate, Verified 02/02/25 09:51) rash/swelling beet Allergy (Intermediate, Verified 02/02/25 09:51) tongue swelling celecoxib (From Celebrex) Allergy (Intermediate, Verified 02/02/25 09:51) rash/swelling Medication List - Last Reconciled 02/02/25 by MACHO Rizo albuterol sulfate 90 mcg/actuation (Ventolin HFA) 2 puffs inhalation Q4-6H PRN 30 days amlodipine 5 mg PO DAILY blood sugar diagnostic (EGG Energyuch Ultra Test strips) use to test sugar twice a day budesonide 0.5 mg (2 mL) inhalation BID 90 days fexofenadine (Destinee Allergy) 180 mg PO DAILY gabapentin 600 mg (2 x 300 mg) PO BID glipizide ER 2.5 mg PO BID insulin glargine (Lantus Solostar U-100 Insulin) 10 units (0.1 mL) subcut DAILY ipratropium-albuterol 0.5 mg-3 mg(2.5 mg base)/3 mL 3 mL inhalation Q4-6H PRN irbesartan 1 tab PO DAILY lancets (Cequel DataTouch Delica Plus Lancet) Use to test blood sugar twice daily levothyroxine 75 mcg PO DAILY metoprolol succinate ER 50 mg PO DAILY montelukast 10 mg PO BEDTIME 90 days omeprazole 20 mg PO DAILY pen needle, diabetic (Unifine Ultra Pen Needle) As directed simvastatin 20 mg PO DAILY trazodone 50 mg PO BEDTIME PRN vitamins A,C,N-goaa-jtinoe 4,296 mcg-226 mg-90 mg (PreserVision AREDS) 1 cap PO BID Tobacco use date assessed: 11/03/24 Dental Screening Dental Screen Date: 11/03/24 HPI HPI Comments History of Present Illness Details 84 year old female with a past medical h istory of diabetes, hypertension, hyperlipidemia, hypothyroid, GERD, breast cancer, back pain presenting for follow up. Here with her Angel. Diabetes: Lantus 10 units daily, glipizide 5mg twice daily. Last A1C 6.3%. Eye exam utd. fasting 104. History of breast surgery-follows with Dr Fitzpatrick Pulmonary: Follows [facility]: In May 2019 the patient fell at home in the shower and broke a number of ribs on the left side as well as developed a vertebral fracture.? This required a brief hospitalization and subsequent rehab for 10 days. She continues to have back pain and is undergoing pain therapy with injections for this pain. She underwent bilateral back procedures at [facility]. Is scheduled for epidural injections next week. R Hip also hurts her. Rad down leg. [facility], next appt chidi bhatt and next week. Going through physical therapy. Just got MRI at [facility], not available for review, will request Health maintenance Colonoscopy 2021-Dr Stoll. No further required Concerns: Has been dropping things often. Some numbness in the hands. No pain. Does feel like she has some arthritis in the hands Bilateral lower extremity edema over the last month since it has been hot. No calf tenderness ROS CONSTITUTIONAL: Denies weight loss, fever and chills. HEENT: Denies changes in vision and hearing. RESPIRATORY: Denies SOB and cough. CV: Denies palpitations and CP GI: Denies abdominal pain, nausea, vomiting and diarrhea. : Denies dysuria and urinary frequency. MSK: Denies new myalgia and joint pain. SKIN: Denies rash and pruritus. NEUROLOGICAL: Denies headache PSYCHIATRIC: Denies recent changes in mood. PHYSICAL EXAM: GENERAL: Alert and oriented x 3. NAD EYES: EOMI. Anicteric. HENT: Moist mucous membranes. No scleral icterus. No cervical lymphadenopathy. LUNGS: Clear to auscultation bilaterally. CARDIOVASCULAR: Regular rate and rhythm. No murmur. No JVD. ABDOMEN: Soft, non-tender +bs EXTREMITIES: No edema. Non-tender. SKIN: No rashes or lesions. Warm. NEUROLOGIC: No focal neurological deficits. CN II-XII grossly intact PSYCHIATRIC: Cooperative. Appropriate mood and affect [facility] Medical History (Updated 02/02/25 @ 19:49 by MACHO Rizo) Weakness of wrist Asthma Cough Bronchitis COVID-19 vaccine series completed Iron deficiency anemia Elevated cholesterol HTN (hypertension) Diabetes GERD (gastroesophageal reflux disease) Hypothyroid Hx of nephrolithotomy with removal of calculi COPD (chronic obstructive pulmonary disease) Allergic rhinitis History of right breast cancer Surgical History (Updated 02/01/25 @ 15:52 by Hayley Arellano) Status post lumbar spine surgery for decompression of spinal cord Hx of cystoscopy Hx of cataract extraction History of esophagogastroduodenoscopy (EGD) Hx of right breast biopsy (10/27/03) History of vocal cord polypectomy (08/10/12) History of colonoscopy (08/20/21) History of lumpectomy of right breast (07/01/07) History of excision of lesion (01/2001) History of cholecystectomy (1999) History of left breast biopsy (1992) Family History Father Lung cancer Mother Cancer of unknown origin Sister Lung cancer, Onset Age: 57 Sister Melanoma, Onset Age: 44 Sister Lung cancer, Onset Age: 70 Brother Lung cancer Brother Lung cancer Son Melanoma Social History Household Members: Spouse Housing: House Are you a primary senior care specialist to a significant other at home: No Do you presently have visiting nurse or other home services: No Alcohol intake: never Patient Tobacco Use Status: Former Tobacco user Tobacco use type: Cigarette e-Cigarette/Vaping Use: Former Use service: No Current occupational status: retired Cognitive needs: No Hearing needs: No Vision needs: Yes (rx glasses) Questionnaire Thrive Questionnaire Date Thrive assessed: 11/03/24 AUDIT C Alcohol Use Questionnaire (AUDIT-C) 1. How often do you have a drink containing alcohol?: Never Total Score: 0 YADIRA-7 AMB Questionnaire YADIRA-7 Date YADIRA - 7 assessed: 11/03/24 Source: Developed by Drs. Aaron Norton, Ema Alcala, Suraj Jacques and colleagues, with an educational jillian from [employer]. Physical exam (Primary Care) Vital Signs: Last Vital Signs Temp 97.4 F 02/02/25 09:52 Pulse 76 02/02/25 09:52 Resp 17 02/02/25 09:52 BP 156/76 H 02/02/25 09:52 Pulse Ox 97 08/22/25 09:52 Oxygen Delivery Method Room Air 02/02/25 09:52 BMI result Body Mass Index 32.2 Tobacco/Smoking Status: Tobacco use Status Tobacco use date assessed 11/03/24 02/02/25 10:01 Patient Tobacco Use Status Former Tobacco user 02/02/25 10:01 Tobacco use type Cigarette 02/02/25 10:01 e-Cigarette/Vaping Use Former Use 02/02/25 10:01 Thrive Assessment: Date of Thrive Assessment Date Thrive assessed 11/03/24 02/02/25 10:01 Coding Level of Care Code Est Pt Level 4 (19247) Complex EM visit Add On G2211 Diagnoses Type 2 diabetes mellitus without complication, with long-term current use of insulin E11.9; Z79.4 Diabetes mellitus type: type 2 Diabetes mellitus half-way insulin use: with half-way use Diabetes mellitus complication status: without complication Hypothyroid E03.9 Primary hypertension I10 Hypertension type: primary hypertension Paresthesia of both hands R20.2 Assessment & Plan Assessment & Plan (1) Diabetes: Comment: type 2-glucose usually ~ 200 (higher when getting steroid injections)-taking glipizide Code(s): E11.9 - Type 2 diabetes mellitus without complications Category: Medical Qualifiers: Diabetes mellitus type: type 2 Diabetes mellitus half-way insulin use: with half-way use Diabetes mellitus complication status: without complication Qualified Code(s): E11.9 - Type 2 diabetes mellitus without complications; 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 Will reduce dose of glipizide to 2.5 mg twice daily ER. Continue diabetic diet and monitor sugar (2) Hypothyroid: Code(s): E03.9 - Hypothyroidism, unspecified Category: Medical Plan: Euthyroid. Continue levothyroxine (3) HTN (hypertension): Code(s): I10 - Essential (primary) hypertension Category: Medical Qualifiers: Hypertension type: primary hypertension Qualified Code(s): I10 - Essential (primary) hypertension Plan: Controlled on recheck. Continue current therapies (4) Paresthesia of both hands: Code(s): R20.2 - Paresthesia of skin Category: Medical Plan: X-ray of the wrist and hands ordered. Will also check vitamin B12. Etiology unclear at this time Plan Bilateral lower extremities likely heat related. Recommend compression stockings, leg elevation, low-sodium diet. Further plan regarding dropping things from her hands pending results Orders: Orders Vitamin B12 Today R20.2 - Paresthesia of skin Medications: Changed From glipizide ER 5 mg (2 x 2.5 mg) PO BID 180 tabs 1RF To glipizide ER 2.5 mg PO BID 90 tabs 1RF Refilled glipizide ER 5 mg (2 x 2.5 mg) PO BID 180 tabs 1RF
[2025-02-02 09:52] VITALS: BP 156/76; PULSE 76; RESP 17; TEMP 36.3; O2SAT 97; BMI 32.2
--- OUTSIDE RECORDS SUMMARY | 2025-02-02 09:52 | XMS_ITS | Patient Health Record ---
Author Organization [facility] Address [address] [place] [id number] Care Team Providers Care Release Of Information Clerk Name Role Phone Rodrigo (RETIRED) Pasquale MABRY Primary Care Provide r Unavailable Aaron Stoll Unavailable [phone] Matthew Guzman Unavailable Unavailable Allergies Allergen (clinical [...] Status Risk Notes Problem Iron deficiency anemia (55260646) Iron deficiency anemia (D50.9) Active confirmed Problem 16424451 Iron deficiency anemia, unspecified iron deficiency anemia type (D50.9) Active confirmed Problem Diverticulosis of colon (499128216) Diverticulosis of colon (K57.30) Active confirmed Plan [...] Date MEDICARE OF [place] [address] [place] [address] [phone] [id number] REAGAN BARR Self - patient is the insured [facility] [address] [address] [place] [address] [id number] REAGAN BARR Self - patient is the insured Medical (General) History Medical History History ICD Code Kidney stones NIDDM COPD/Asthma Back pain/hx of fall--she is going for some type of spinal injection on 07/22/2021 at [facility] Hx of carcinoma of the right breast Osteopenia EGD/Colonoscopy in 2006--the upper endoscopy revealed a hiatal hernia, but no significant esophagitis or Aly's esophagus; the colonoscopy was normal, including biopsies that were negative for microscopic colitis Denies [place],CVA,renal disease Hypertension Hypothyroidism Hyperlipidemia Iron-deficiency anemia--bert Guzman--receiving [...]
== END 2025-02-02 10:39 | disposition home or self-care (01) ==
LOC: HO.HMCHD 09:50
PROVIDERS: PCP Internal Medicine; Visit Provider Physician Assistant
DX: E11.9 Type 2 diabetes mellitus without complications (principal); Z79.4 Long term (current) use of insulin; E03.9 Hypothyroidism, unspecified; I10 Essential (primary) hypertension; R20.2 Paresthesia of skin

== ENCOUNTER 2025-02-02 09:49 | Outpatient (REF) | payer MEDICARE, OTHER, SELFPAY ==
--- NOTE | ~2025-02-02 | XR_ITS ---
EXAMINATIONS: XR HAND/WRIST, RIGHT XR HAND/WRIST, LEFT CLINICAL INFORMATION: R29.898 - Other symptoms and signs involving the musculoskeletal system COMPARISON: None TECHNIQUE: PA, lateral, and oblique views of the each hand and wrist. FINDINGS: RIGHT HAND/WRIST: Alignment is anatomic. No acute fracture or erosions. The disc space narrowing and marginal osteophytes at multiple interphalangeal joints. Moderate degenerative changes at the bcroab-tfmemoey-hrwduccwqta joint. No soft tissue calcifications. LEFT HAND/WRIST: Alignment is anatomic. No acute fracture or erosions. Joint space narrowing and marginal osteophytes of multiple interphalangeal joints. Moderate degenerative changes at the lxubmi-zgjtusah-dlmavaniign joint. No soft tissue calcifications. XR/XR Hand Bilat min 3v IMPRESSION: Degenerative changes in both hands/wrists, involving multiple interphalangeal joints and tnevtd-rqrkiiro-kjjylarofrv joint. Electronically signed by: Daniel Li MD 02/02/2025 11:58 AM EDT
--- NOTE | ~2025-02-02 | XR_ITS ---
EXAMINATIONS: XR HAND/WRIST, RIGHT XR HAND/WRIST, LEFT CLINICAL INFORMATION: R29.898 - Other symptoms and signs involving the musculoskeletal system COMPARISON: None TECHNIQUE: PA, lateral, and oblique views of the each hand and wrist. FINDINGS: RIGHT HAND/WRIST: Alignment is anatomic. No acute fracture or erosions. The disc space narrowing and marginal osteophytes at multiple interphalangeal joints. Moderate degenerative changes at the jvzfcm-osuikzta-wawbikjxzrr joint. No soft tissue calcifications. LEFT HAND/WRIST: Alignment is anatomic. No acute fracture or erosions. Joint space narrowing and marginal osteophytes of multiple interphalangeal joints. Moderate degenerative changes at the jtefkr-muycynxh-vbisxsssvtu joint. No soft tissue calcifications. XR/XR Wrist Joni min 3V IMPRESSION: Degenerative changes in both hands/wrists, involving multiple interphalangeal joints and ewuyns-lzzbnuxa-viojunpuvxk joint. Electronically signed by: Daniel Li MD 02/02/2025 11:58 AM EDT
== END 2025-02-02 09:50 | disposition home or self-care (01) ==
LOC: HO.XRAY 09:49
PROVIDERS: PCP Internal Medicine; Visit Provider Physician Assistant
DX: R29.898 Other symptoms and signs involving the musculoskeletal system (principal); E11.9 Type 2 diabetes mellitus without complications; E03.9 Hypothyroidism, unspecified; R20.2 Paresthesia of skin; Z79.4 Long term (current) use of insulin; Z79.890 Hormone replacement therapy; Z79.899 Other long term (current) drug therapy
CPT/HCPCS: 73110; 73130; 99212

== ENCOUNTER → 2025-02-02 10:52 | Outpatient (BNV) | payer MEDICARE, OTHER, SELFPAY | PROVIDERS: PCP Internal Medicine; Visit Provider Radiology Body Imaging | DX: M19.032 Primary osteoarthritis, left wrist (principal); M19.031 Primary osteoarthritis, right wrist; M19.042 Primary osteoarthritis, left hand; M19.041 Primary osteoarthritis, right hand | CPT/HCPCS: 73110; 73130 ==

== ENCOUNTER 2025-02-14 12:39 | Outpatient (REF) | payer MEDICARE, OTHER, SELFPAY ==
--- NOTE | ~2025-02-14 | XR_ITS ---
EXAMINATION: XR CHEST CLINICAL INFORMATION: R05.9 - Cough, unspecified COMPARISON: December 23, 2021. TECHNIQUE: 2 views of the chest were obtained. FINDINGS: Pulmonary reticular pattern. Linear opacities in the right hemithorax. Asymmetric volume loss, right lung. Bilateral apical lung scarring. No consolidation, pleural effusion or pneumothorax. Cardiomediastinal silhouette size is mildly prominent, unchanged. Multilevel thoracic spondylosis. Osteopenia versus osteoporosis. Asymmetric volume loss of the right breast shadow and vascular clips in the right axillary region. Vascular clips in the right upper quadrant abdomen likely cholecystectomy. Liver shadow measures 14 cm, small.. XR/XR chest 2V IMPRESSION: No acute airspace disease. Chronic interstitial lung disease, stable. Likely post treatment changes right hemithorax. Small liver size. Hepatocellular disease should be considered. Electronically signed by: David Jeffery MD 02/14/2025 01:04 PM EDT
--- OUTSIDE RECORDS SUMMARY | 2025-02-14 15:04 | XMS_ITS | Patient Health Record ---
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 Name Role Phone Rodrigo (RETIRED) Pasquale MABRY Primary Care Provide r Unavailable Aaron Stoll Unavailable [phone] Matthew Guzman Unavailable Unavailable Allergies Allergen (clinical [...] Status Risk Notes Problem Iron deficiency anemia (22769160) Iron deficiency anemia (D50.9) Active confirmed Problem 50732643 Iron deficiency anemia, unspecified iron deficiency anemia type (D50.9) Active confirmed Problem Diverticulosis of colon (707876064) Diverticulosis of colon (K57.30) Active confirmed Plan [...] Date MED[place]ARE OF [place] [address] [place] [address] [phone] [id number] REAGAN BARR Self - patient is the insured [facility] [address] [address] [place] [address] [id number] REAGAN BARR Self - patient is the insured Medical (General) History Medical History History ICD Code Kidney stones NIDDM COPD/Asthma Back pain/hx of fall--she is going for some type of spinal injection on 07/22/2021 at [facility] Hx of carcinoma of the right breast Osteopenia EGD/Colonoscopy in 2006--the upper endoscopy revealed a hiatal hernia, but no significant esophagitis or Aly's esophagus; the colonoscopy was normal, including biopsies that were negative for microscopic colitis Denies [place],CVA,renal disease Hypertension Hypothyroidism Hyperlipidemia Iron-deficiency anemia--bert Guzman--receiving [...]
== END 2025-02-14 12:40 | disposition home or self-care (01) ==
LOC: HO.HMGCX 12:39
PROVIDERS: Visit Provider Physician Assistant Medical
DX: R05.9 Cough, unspecified (principal)
CPT/HCPCS: 71046

== ENCOUNTER → 2025-02-14 12:44 | Outpatient (BNV) | payer MEDICARE, OTHER, SELFPAY | PROVIDERS: Visit Provider Radiology Diagnostic Radiology | DX: R05.9 Cough, unspecified (principal) | CPT/HCPCS: 71046 ==

== ENCOUNTER 2025-02-27 09:33 | Outpatient (AMB) | payer MEDICARE, OTHER, SELFPAY ==
--- NOTE | 2025-02-27 09:43 | A.OFFVIS_ITS ---
Vital Signs 02/27/25 09:44 Height 5 ft 2 in Weight 175 lb 4.28 oz BMI 32.1 BP 150/80 H Blood Pressure Location Lt brachial Position Sitting Pulse 83 Pulse Source Pulse Oximeter Pulse Oximetry (%) 94 Oxygen Delivery Method Room Air Intake Visit Reasons: Cough Intake Note: pt is here for follow up and states she still has some short of breath from a URI 2 weeks ago, prednisone and antiobiotic. Allergies baclofen Allergy (Intermediate, Verified 02/27/25 09:50) rash/swelling beet Allergy (Intermediate, Verified 02/27/25 09:50) tongue swelling celecoxib (From Celebrex) Allergy (Intermediate, Verified 02/27/25 09:50) rash/swelling Medication List - Last Reconciled 02/27/25 by Mann Velazco MD albuterol sulfate 90 mcg/actuation (Ventolin HFA) 2 puffs inhalation Q4-6H PRN 30 days amlodipine 5 mg PO DAILY azithromycin (Zithromax) For 250 mg dose pack: take 500 mg today (day 1), then 250 mg for 4 days (days 2-5) PO blood sugar diagnostic ([employer] Ultra Test strips) use to test sugar twice a day budesonide 0.5 mg (2 mL) inhalation BID 90 days fexofenadine (Destinee Allergy) 180 mg PO DAILY gabapentin 600 mg (2 x 300 mg) PO BID glipizide ER 2.5 mg PO BID insulin glargine (Lantus Solostar U-100 Insulin) 10 units (0.1 mL) subcut DAILY ipratropium-albuterol 0.5 mg-3 mg(2.5 mg base)/3 mL 3 mL inhalation Q4-6H PRN irbesartan 150 mg PO DAILY 90 days lancets ([employer] Delica Plus Lancet) Use to test blood sugar twice daily levothyroxine 75 mcg PO DAILY metoprolol succinate ER 50 mg PO DAILY 90 days montelukast 10 mg PO BEDTIME 90 days omeprazole 20 mg PO DAILY pen needle, diabetic (Unifine Ultra Pen Needle) As directed prednisone 20 mg PO BID simvastatin 20 mg PO DAILY trazodone 50 mg PO BEDTIME PRN vitamins A,C,Y-gvmk-rhihrw 4,296 mcg-226 mg-90 mg (PreserVision AREDS) 1 cap PO BID Do you need a note to return to daycare/school/sports/work: No HPI HPI Cough: Details: Aliya is 84 years old very pleasant female who is here for her routine follow- up for COPD/interstitial lung disease. She had been very stable since her last visit but just 2 weeks ago she came with upper respiratory infection,/bronchitis and became more short of breath than usual. She was seen by primary care physician and treated with a short course of prednisone and Z-Luis E, got better and now has been at her usual baseline. There has been no flare up of allergic rhinitis, She has no residual cough or expectoration. [facility] Medical History Acute bronchitis Osteoarthritis of hands, bilateral Weakness of wrist Asthma Cough Bronchitis COVID-19 vaccine series completed Iron deficiency anemia Elevated cholesterol HTN (hypertension) Diabetes GERD (gastroesophageal reflux disease) Hypothyroid Hx of nephrolithotomy with removal of calculi COPD (chronic obstructive pulmonary disease) Allergic rhinitis History of right breast cancer Surgical History Status post lumbar spine surgery for decompression of spinal cord Hx of cystoscopy Hx of cataract extraction History of esophagogastroduodenoscopy (EGD) Hx of right breast biopsy (10/27/03) History of vocal cord polypectomy (08/10/12) History of colonoscopy (08/20/21) History of lumpectomy of right breast (07/01/07) History of excision of lesion (01/2001) History of cholecystectomy (1999) History of left breast biopsy (1992) Family History Father Lung cancer Mother Cancer of unknown origin Sister Lung cancer, Onset Age: 57 Sister Melanoma, Onset Age: 44 Sister Lung cancer, Onset Age: 70 Brother Lung cancer Brother Lung cancer Son Melanoma Social History Household Members: Spouse Housing: House Are you a primary skin care therapist to a significant other at home: No Do you presently have visiting nurse or other home services: No Alcohol intake: never Patient Tobacco Use Status: Former Tobacco user Tobacco use type: Cigarette e-Cigarette/Vaping Use: Former Use service: No Current occupational status: retired Cognitive needs: No Hearing needs: No Vision needs: Yes (rx glasses) Review of Systems Const All systems reviewed & are unremarkable except as noted in HPI and below Eyes Reports no additional complaints ENT Reports hoarseness (mild ) and Reports nasal congestion (Mild chronic) Card Reports no additional complaints, Denies chest pain, Denies irregular heart rhythm and Denies leg edema Resp Reports as per HPI GI Reports no additional complaints Reports no additional complaints Musc Reports back pain Skin/Breast Reports system reviewed and no additional complaints, except as documented Neuro Reports no additional complaints Psych Reports no additional complaints Physical Exam Vital Signs: Last Vital Signs Pulse 83 02/27/25 09:44 BP 150/80 H 02/27/25 09:44 Pulse Ox 94 02/27/25 09:44 Oxygen Delivery Method Room Air 02/27/25 09:44 BMI result Body Mass Index 32.1 Const General: comfortable, no acute distress, alert and awake Orientation/consciousness: patient oriented x3 HEENT Head: Yes normal to inspection General nose exam: No nasal polyps present, No nasal discharge present and Other nasal findings present (Chronic nasal congestion) Face and sinus: Yes sinuses nontender Mouth: oropharynx normal (NO THRUSH OR MUCOPURULENT SECRETIONS NOTED) Throat: Yes posterior oropharynx normal Eyes General: appearance normal, both eyes and all related structures Neck Neck: Yes normal visual inspection, Yes no lymphadenopathy, Yes trachea midline and Yes no JVD Thyroid: Thyroid normal Chest Chest palpation & inspection: normal inspection of the chest, normal palpation of entire chest wall and no tenderness Resp Other: Percussion note resonant, breath sounds are equal on both sides but with prolonged expiratory phase. There are no wheezes or rhonchi and no crepitations. Cardio Palpation: normal PMI Rate: regular rate Rhythm: regular rhythm Heart sounds: no gallops and no murmurs GI Palpation (GI): Soft to palpation, nontender, No hepatosplenomegaly present and no masses Auscultation: normal bowel sounds Back/Spine/Pelvis Thoracic/Lumbar Spine: thoracic and lumbar spine normal to inspection, thoraco- lumbar ROM limited and thoraco-lumbar spasm Skin General skin exam: no rashes or lesions noted Neuro General: patient oriented x3 and no focal motor deficits Cranial nerves: Yes CN's II-XII intact bilaterally Extrem General: Yes normal to inspection, Yes no clubbing, cyanosis or edema and Yes no calf tenderness Psych Speech and movement: Normal speech and movement present Results Reviewed Results Reviewed: 02/14/2025 CHEST XRAY . No acute airspace disease. Chronic interstitial lung disease, stable. Likely post treatment changes right hemithorax. Small liver size. Hepatocellular disease should be considered. Assessment & Plan Assessment & Plan (1) Asthma: Comment: SHE HAS FEATURES OF ASTHMA/COPD . IT IS WELL CONTROLLED AND STABLE, EXCEPT FOR OCCASIONAL FLARE UPS. Code(s): J45.909 - Unspecified asthma, uncomplicated Category: Medical Plan: Ipratropium-albuterol solution in the nebulizer Q 6 hours p.r.n., She usually uses it twice a day. Budesonide 0.5 mg solution in the nebulizer b.i.d.. Ventolin HFA 2 puffs Q 6 hours p.r.n. for acute spells *Prescription of prednisone 20 mg b.i.d. for 5 days is given to keep on hand (2) COPD (chronic obstructive pulmonary disease): Comment: PATIENT HAS COMBINATION OF CHRONIC OBSTRUCTIVE PULMONARY DISEASE AND 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 SHE IS DOING VERY WELL ON THE CURRENT REGIMEN, AND WILL CONTINUE ON THE SAME: Code(s): J44.9 - Chronic obstructive pulmonary disease, unspecified Category: Medical Qualifiers: COPD type: COPD with acute exacerbation Qualified Code(s): J44.1 - Chronic obstructive pulmonary disease with (acute) exacerbation Plan: See under asthma (3) Allergic rhinitis: Comment: MILD, CHRONIC, AROUND THE YEAR. CONTROLLED , WITH MILD INTERMITTENT FLARE UPS. Code(s): J30.9 - Allergic rhinitis, unspecified Category: Medical Plan: Patient also has chronic allergic rhinitis/asthma for many years, controlled with. her current meds It flares up every now and then especially with any upper respiratory infection. Plan Continue montelukast 10 mg daily Fexofenadine 180 mg once a day p.r.n. Medications: Changed From prednisone 20 mg PO BID 10 tabs 0RF To prednisone 20 mg PO BID 10 tabs 0RF Asthma Excerbation 5 days Coding Level of Care Code Est Pt Level 3 (30590) Diagnoses Asthma J45.909 Chronic obstructive pulmonary disease with acute exacerbation J44.1 COPD type: COPD with acute exacerbation Allergic rhinitis J30.9
[2025-02-27 09:44] VITALS: BP 150/80; PULSE 83; O2SAT 94; BMI 32.1
--- OUTSIDE RECORDS SUMMARY | 2025-02-27 12:09 | XMS_ITS | Patient Health Record ---
Author Organization [facility] Address [address] [place] [phone] Care Team Providers Care [employer] Officer Name Role Phone Rodrigo (RETIRED) Pasquale MABRY Primary Care Provide r Unavailable Aaron Stoll Unavailable [phone] Matthew Guzman Unavailable Unavailable Allergies Allergen (clinical [...] Status Risk Notes Problem Iron deficiency anemia (14037099) Iron deficiency anemia (D50.9) Active confirmed Problem 62912669 Iron deficiency anemia, unspecified iron deficiency anemia type (D50.9) Active confirmed Problem Diverticulosis of colon (639810455) Diverticulosis of colon (K57.30) Active confirmed Plan [...] Date MEDICARE OF [place] [address] [place] [address] [phone] [id number] REAGAN BARR Self - patient is the insured [facility] [address] [address] [place] [address] [id number] REAGAN BARR Self - patient is the insured Medical (General) History Medical History History ICD Code Kidney stones NIDDM COPD/Asthma Back pain/hx of fall--she is going for some type of spinal injection on 07/22/2021 at [facility] Hx of carcinoma of [...]
== END 2025-02-27 10:15 | disposition home or self-care (01) ==
LOC: HO.HPS 09:34
PROVIDERS: PCP Internal Medicine; Visit Provider Internal Medicine
DX: J45.909 Unspecified asthma, uncomplicated (principal); J44.1 Chronic obstructive pulmonary disease with (acute) exacerbation; J30.9 Allergic rhinitis, unspecified
CPT/HCPCS: 99213

== ENCOUNTER → 2025-02-27 09:33 | Outpatient (BNVA) | payer MEDICARE, OTHER, SELFPAY | PROVIDERS: PCP Internal Medicine; Visit Provider Internal Medicine | DX: J44.1 Chronic obstructive pulmonary disease with (acute) exacerbation (principal); J30.9 Allergic rhinitis, unspecified; Z87.891 Personal history of nicotine dependence | CPT/HCPCS: 99212 ==

== ENCOUNTER 2025-05-29 09:58 | Outpatient (REF) | payer MEDICARE, OTHER, SELFPAY ==
--- OUTSIDE RECORDS SUMMARY | 2025-05-29 12:09 | XMS_ITS | Patient Health Record ---
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 Name Role Phone Rodrigo (RETIRED) Pasquale MABRY Primary Care Provide r Unavailable Aaron Stoll Unavailable [phone] Matthew Guzman Unavailable Unavailable Allergies Allergen (clinical drug ingredient) Drug/Non Drug Allergy documented on EMR Reaction Allergy Type Onset Date Status baclofen Baclofen Unknown Drug Allergy Active celecoxib Celecoxib Unknown Drug Allergy Active Reason For Referral No Information Medications Medication SIG (Take, Route, Frequency, Duration) Notes Start Date End Date Status Gabapentin 300 MG Capsule Oral; Duration: 30 Active Levothyroxine Sodium 75 MCG Tablet TAKE 1 TABLET BY MOUTH EVERY DAY Oral; Duration: 90 Active Metoprolol Succinate ER 50 MG Tablet Extended Release 24 Hour Oral; Duration: 90 Active amLODIPine Besylate 5 MG Tablet Oral; Duration: 90 Active Destinee Active Irbesartan 150 MG Tablet Oral; Duration: 90 Active Symbicort Active Simvastatin 20 MG Tablet Oral; Duration: 90 Active Ventolin HFA Active Omeprazole 20 MG Capsule Delayed Release TAKE 1 CAPSULE BY MOUTH EVERY MORNING Oral; Duration: 90 Active Calcium Active guaiFENesin-Codeine 100-10 MG/5ML Solution TAKE 5 ML BY MOUTH FOUR TIMES DAILY Oral; Duration: 23 Active Glucosamine Active Albuterol Sulfate HFA 108 (90 Base) MCG/ACT Aerosol Solution INHALE 2 PUFFS BY MOUTH EVERY 4 TO 6 HOURS NEEDED FOR SHORTNESS OF BREATH OR WHEEZING Inhalation; Duration: 16 Active glipiZIDE ER 5 MG Tablet Extended Release 24 Hour Oral; Duration: 90 Active Ipratropium-Albuterol 0.5-2.5 (3) MG/3ML Solution USE 3 ML VIA NEBULIZER FOUR TIMES DAILY FOR COPD Inhalation; Duration: 15 Active Montelukast Sodium 10 MG Tablet Oral; Duration: 90 Active Immunizations Vaccine Route Administration Date Status Comme nts Influenza Unknown 02/12/2021 Administered Influenza Unknown 03/14/2022 Administered Social History Tobacco Use: Social History Observation Description Date Details (start date - stop date) Never Smoker NA - NA Social History Drugs/Alcohol: Social Info Question Answer Notes Alcohol Screen Did you have a drink containing alcohol in the past year? No Points 0 Interpretation Negative Tobacco Use: Social Info Question Answer Notes Tobacco Use/Smoking Patient is a nonsmoker Additional Details Category Social Info Options Details Miscellaneous: Marital status: Occupation: retired Section Notes: Nonsmoker; no alcohol Nonsmoker; no alcohol Nonsmoker; no alcohol Problems Problem Type SNOMED Code ICD Code Onset Dates Problem Status W/U Status Risk Notes Problem Iron deficiency anemia (71358623) Iron deficiency anemia (D50.9) Active confirmed Problem Iron deficiency anemia (53597752) Iron deficiency anemia, unspecified iron deficiency anemia type (D50.9) Active confirmed Problem Diverticulosis of colon (688652471) Diverticulosis of colon (K57.30) Active confirmed Plan Of Treatment Pending Test Test Name Order Date IRON + IBC (FE) 08/27/2021 IRON + IBC (FE) 10/28/2021 CBC w DIFF 10/28/2021 CBC w DIFF 08/27/2021 Ferritin 08/27/2021 Ferritin 10/28/2021 Future Test Test Name Order Date UPPER GI ENDOSCOPY 07/15/2021 COLONOSCOPY 07/15/2021 Insurance Providers Payer Name Payer Address Payer Phone Subscriber Number Group Number Insured Name Patient Relationship to Insured Coverage Start Date Coverage End Date MEDICARE OF [place] [address] [place] [address] [id number] REAGAN BARR Self - patient is the insured [facility] [address] [address] [place] [address] [id number] REAGAN BARR Self - patient is the insured Medical (General) History Medical History History ICD Code Kidney stones NIDDM COPD/Asthma Back pain/hx of fall--she is going for some type of spinal injection on 07/22/2021 at [facility] Hx of carcinoma of the right breast Osteopenia EGD/Colonoscopy in 2006--the upper endoscopy revealed a hiatal hernia, but no significant esophagitis or Aly's esophagus; the colonoscopy was normal, including biopsies that were negative for microscopic colitis Denies [place],CVA,renal disease Hypertension Hypothyroidism Hyperlipidemia Iron-deficiency anemia--bert Guzman--receiving [...]
[2025-05-29 15:14] LABS: Vitamin B12 405 pg/mL (200-900)
== END 2025-05-29 09:59 | disposition home or self-care (01) ==
LOC: HO.HMGCLDS 09:58
PROVIDERS: PCP Physician Assistant; Visit Provider Physician Assistant
DX: R20.2 Paresthesia of skin (principal)
CPT/HCPCS: 36415; 82607

== ENCOUNTER 2025-06-04 09:00 | Outpatient (AMB) | payer MEDICARE, OTHER, SELFPAY ==
--- NOTE | 2025-06-04 09:06 | MHC.PC.OV ---
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 Accompanied by: Self / Same As Patient Allergies baclofen Allergy (Intermediate, Verified 06/04/25 09:06) rash/swelling beet Allergy (Intermediate, Verified 06/04/25 09:06) tongue swelling celecoxib (From Celebrex) Allergy (Intermediate, Verified 06/04/25 09:06) rash/swelling Medication List - Last Reconciled 06/04/25 by MACHO Rizo albuterol sulfate 90 mcg/actuation (Ventolin HFA) 2 puffs inhalation Q4-6H PRN 30 days amlodipine 5 mg PO DAILY 90 days blood sugar diagnostic (PayPropuch Ultra Test strips) use to test sugar twice a day budesonide 0.5 mg (2 mL) PO BID fexofenadine (Destinee Allergy) 180 mg PO DAILY gabapentin 600 mg (2 x 300 mg) PO BID glipizide ER 2.5 mg PO BID insulin glargine (Lantus Solostar U-100 Insulin) 10 units (0.1 mL) subcut DAILY ipratropium-albuterol 0.5 mg-3 mg(2.5 mg base)/3 mL 3 mL inhalation Q4-6H PRN irbesartan 150 mg PO DAILY 90 days lancets (PayPropuch Delica Plus Lancet) Use to test blood sugar twice daily levothyroxine 75 mcg PO DAILY metoprolol succinate ER 50 mg PO DAILY 90 days montelukast 10 mg PO BEDTIME 90 days omeprazole 20 mg PO DAILY 90 days oxybutynin chloride ER 5 mg PO DAILY pen needle, diabetic (Easy Touch) USE 1 NEEDLE UNDER THE SKIN ONCE DAILY prednisone 20 mg PO BID 5 days simvastatin 20 mg PO DAILY 90 days trazodone 50 mg PO BEDTIME PRN vitamins A,C,O-dprg-dtnibf 4,296 mcg-226 mg-90 mg (PreserVision AREDS) 1 cap PO BID Tobacco use date assessed: 02/13/25 Dental Screening Dental Screen Date: 02/13/25 HPI HPI Comments History of Present Illness Details 84 year old female with a past medical history of diabetes, hypertension, hyperlipidemia, hypothyroid, GERD, breast cancer, back pain presenting for follow up. Diabetes: Lantus 10 units daily, glipizide 5mg twice daily. Last A1C 6.3%. Eye exam utd. fasting 104. History of breast surgery-follows with Dr iFtzpatrick Asthma/COPD overlap: Follows with pulmonology. Compliant with inhalers. No recent exacerbation MSK: In May 2019 the patient fell at home in the shower and broke a number of ribs on the left side as well as developed a vertebral fracture.? This required a brief hospitalization and subsequent rehab for 10 days. She continues to have back pain and is undergoing pain therapy with injections for this pain. She underwent bilateral back procedures at [facility]. Is scheduled for epidural injections next week. R Hip also hurts her. Rad down leg. [facility], next appt chidi bowman next week. Going through physical therapy. Just got MRI at [facility], not available for review, will request. Following with [facility]. She recently had a procedure on L4-L5 at the surgery Center in [place] but is uncertain of the procedure that was actually performed. She is doing well. Using cane for assistive device. She has been relatively independent with her ADLs though her does assist. Pain is managed with gabapentin 600 mg twice daily and Tylenol. Health maintenance Colonoscopy 2021-Dr Stoll. No further required Concerns: Urge incontinence ROS: See above EXAM: Constitutional - Awake and Alert, No apparent distress Eyes - PERRL Cardiovascular - S1S2, RRR, No edema Respiratory - Normal lung expansion, Normal respiratory effort, No respiratory distress, CTA bilaterally Extremities - no calf tenderness bilaterally, no swelling Skin - Warm/Dry Neurological - Alert & oriented x3 Psychological - Appropriate affect [facility] Medical History (Updated 06/04/25 @ 11:32 by MACHO Rizo) Vitamin D deficiency Acute bronchitis Osteoarthritis of hands, bilateral Weakness of wrist Asthma Cough Bronchitis COVID-19 vaccine series completed Iron deficiency anemia Elevated cholesterol HTN (hypertension) Diabetes GERD (gastroesophageal reflux disease) Hypothyroid Hx of nephrolithotomy with removal of calculi COPD (chronic obstructive pulmonary disease) Allergic rhinitis History of right breast cancer Surgical History Status post lumbar spine surgery for decompression of spinal cord Hx of cystoscopy Hx of cataract extraction History of esophagogastroduodenoscopy (EGD) Hx of right breast biopsy (10/27/03) History of vocal cord polypectomy (08/10/12) History of colonoscopy (08/20/21) History of lumpectomy of right breast (07/01/07) History of excision of lesion (01/2001) History of cholecystectomy (1999) History of left breast biopsy (1992) Family History Father Lung cancer Mother Cancer of unknown origin Sister Lung cancer, Onset Age: 57 Sister Melanoma, Onset Age: 44 Sister Lung cancer, Onset Age: 70 Brother Lung cancer Brother Lung cancer Son Melanoma Social History Household Members: Spouse Housing: House Are you a primary childcare provider to a significant other at home: No Do you presently have visiting nurse or other home services: No Alcohol intake: never Patient Tobacco Use Status: Former Tobacco user Tobacco use type: Cigarette e-Cigarette/Vaping Use: Former Use service: No Current occupational status: retired Cognitive needs: No Hearing needs: No Vision needs: Yes (rx glasses) Questionnaire Thrive Questionnaire Date Thrive assessed: 02/13/25 AUDIT C Alcohol Use Questionnaire (AUDIT-C) 2. How many drinks containing alcohol do you have on a typical day when you are drinking?: 1 or 2 3. How often do you have six or more drinks on one occasion?: Never Total Score: 0 YADIRA-7 AMB Questionnaire YADIRA-7 Date YADIRA - 7 assessed: 02/13/25 Source: Developed by Drs. Aaron Norton, Ema Alcala, Suraj Jacques and colleagues, with an educational jillian from [employer]. Physical exam (Primary Care) Vital Signs: Last Vital Signs Temp 97.2 F 06/04/25 09:12 Pulse 84 06/04/25 09:12 Resp 18 06/04/25 09:12 BP 164/78 H 06/04/25 09:12 Pulse Ox 95 06/04/25 09:12 Oxygen Delivery Method Room Air 06/04/25 09:12 BMI result Body Mass Index 32.6 Tobacco/Smoking Status: Tobacco use Status Tobacco use date assessed 02/13/25 06/04/25 09:08 Patient Tobacco Use Status Former Tobacco user 06/04/25 09:08 Tobacco use type Cigarette 06/04/25 09:08 e-Cigarette/Vaping Use Former Use 06/04/25 09:08 Thrive Assessment: Date of Thrive Assessment Date Thrive assessed 02/13/25 06/04/25 09:08 Office Procedures Flu Questionnaire Does the patient have a severe egg allergy?: No Does the patient have severe life threatening allergies?: No Does the patient have a fever or illness today?: No Has the patient ever had Guillain-[place] Syndrome?: No Has the patient ever had any past reaction to a flu shot?: No Immunizations Fluzone High-Dose (PF) 180 mcg/0.5 mL intramuscular syringe Performing Provider: MACHO Rizo Performing Location: [facility] Adult [address] Administered by: MACHO Rizo on 06/04/25 11:26 Dose Route Admin Location Dispensed Lot Number Expiration Date [facility] 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 0.5 mL IM Left Deltoid 0.5 mL [id number] 12/11/25 [id number] [employer] Total Dispensed Waste 0.5 mL 0 % VIS Given Date VIS Provided VIS Publication Date 06/04/25 Single Vaccine 24 Eligibility Eligibility Date Funding Source Not [facility] Eligible 06/04/25 Private Coding Level of Care Code Est Pt Level 4 (15021) Add On Problem Visit Only Diagnoses Type 2 diabetes mellitus without complication, with long-term current use of insulin E11.9; Z79.4 Diabetes mellitus type: type 2 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 use Diabetes mellitus complication status: without complication Hypothyroid E03.9 Primary hypertension I10 Hypertension type: primary hypertension Chronic obstructive pulmonary disease with acute exacerbation J44.1 COPD type: COPD with acute exacerbation Urge incontinence N39.41 Assessment & Plan Assessment & Plan (1) Diabetes: Comment: type 2-glucose usually ~ 200 (higher when getting steroid injections)-taking glipizide Code(s): E11.9 - Type 2 diabetes mellitus without complications Category: Medical Qualifiers: Diabetes mellitus type: type 2 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 Will reduce dose of glipizide to 2.5 mg twice daily ER. Continue diabetic diet and monitor sugar (2) Hypothyroid: Code(s): E03.9 - Hypothyroidism, unspecified Category: Medical Plan: Euthyroid. Continue levothyroxine (3) HTN (hypertension): Code(s): I10 - Essential (primary) hypertension Category: Medical Qualifiers: Hypertension type: primary hypertension Qualified Code(s): I10 - Essential (primary) hypertension Plan: Controlled on recheck. Continue current therapies (4) COPD (chronic obstructive pulmonary disease): Comment: PATIENT HAS COMBINATION OF CHRONIC OBSTRUCTIVE PULMONARY DISEASE AND 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 SHE IS DOING VERY WELL ON THE CURRENT REGIMEN, AND WILL CONTINUE ON THE SAME: Code(s): J44.9 - Chronic obstructive pulmonary disease, unspecified Category: Medical Qualifiers: COPD type: COPD with acute exacerbation Qualified Code(s): J44.1 - Chronic obstructive pulmonary disease with (acute) exacerbation Plan: Stable. Continue following with pulmonology. Albuterol as prescribed. Budesonide twice daily (5) Urge incontinence: Code(s): N39.41 - Urge incontinence Category: Medical Plan: Discussed bladder training as well as Kegel exercises. Trial oxybutynin. 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 Influenza [id number] High Dose Immunization Today Z23 - Encounter for immunization Basic Metabolic Panel 4 Months D64.9 - Anemia, unspecified, E03.9 - Hypothyroidism, unspecified, E11.9 - Type 2 diabetes mellitus without complications, E55.9 - Vitamin D deficiency, unspecified, I10 - Essential (primary) hypertension, Z79.4 - skilled nursing (current) use of insulin Hemoglobin A1c 4 Months D64.9 - Anemia, unspecified, E03.9 - Hypothyroidism, unspecified, E11.9 - Type 2 diabetes mellitus without complications, E55.9 - Vitamin D deficiency, unspecified, I10 - Essential (primary) hypertension, Z79.4 - skilled nursing (current) use of insulin Lipid Panel 4 Months D64.9 - Anemia, unspecified, E03.9 - Hypothyroidism, unspecified, E11.9 - Type 2 diabetes mellitus without complications, E55.9 - Vitamin D deficiency, unspecified, I10 - Essential (primary) hypertension, Z79.4 - skilled nursing (current) use of insulin Microalbumin, Random (w Creat) 4 Months D64.9 - Anemia, unspecified, E03.9 - Hypothyroidism, unspecified, E11.9 - Type 2 diabetes mellitus without complications, E55.9 - Vitamin D deficiency, unspecified, I10 - Essential (primary) hypertension, Z79.4 - skilled nursing (current) use of insulin Vitamin D 25-OH Total 4 Months D64.9 - Anemia, unspecified, E03.9 - Hypothyroidism, unspecified, E11.9 - Type 2 diabetes mellitus without complications, E55.9 - Vitamin D deficiency, unspecified, I10 - Essential (primary) hypertension, Z79.4 - skilled nursing (current) use of insulin TSH reflex Free T4 4 Months E03.9 - Hypothyroidism, unspecified Comprehensive Met. Panel 4 Months Z85.3 - Personal history of malignant neoplasm of breast Medications: New oxybutynin chloride ER 5 mg PO DAILY 90 tabs 2RF
[2025-06-04 09:12] VITALS: BP 164/78; PULSE 84; RESP 18; TEMP 36.2; O2SAT 95; BMI 32.6
--- OUTSIDE RECORDS SUMMARY | 2025-06-04 09:48 | XMS_ITS | Patient Health Record ---
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 Name Role Phone Rodrigo (RETIRED) Pasquale MABRY Primary Care Provide r Unavailable Aaron Stoll Unavailable [phone] Matthew Guzman Unavailable Unavailable Allergies Allergen (clinical [...] Status Risk Notes Problem Iron deficiency anemia (02807152) Iron deficiency anemia (D50.9) Active confirmed Problem Iron deficiency anemia (68046237) Iron deficiency anemia, unspecified iron deficiency anemia type (D50.9) Active confirmed Problem Diverticulosis of colon (080166368) Diverticulosis of colon (K57.30) Active confirmed Plan [...] OF [place] [address] [place] [address] [phone] [id number] REAGAN BARR Self - patient is the insured [facility] [address] [address] [place] [address] [id number] REAGAN BARR Self - patient is the insured Medical (General) History Medical History History ICD Code Kidney stones NIDDM COPD/Asthma Back pain/hx of fall--she is going for some type of spinal injection on 07/22/2021 at [facility] Hx of carcinoma of [...]
== END 2025-06-04 09:41 | disposition home or self-care (01) ==
LOC: HO.HMCHD 09:01
PROVIDERS: PCP Internal Medicine; Visit Provider Physician Assistant
DX: E11.9 Type 2 diabetes mellitus without complications (principal); Z79.4 Long term (current) use of insulin; E03.9 Hypothyroidism, unspecified; I10 Essential (primary) hypertension; J44.1 Chronic obstructive pulmonary disease with (acute) exacerbation; N39.41 Urge incontinence; Z23 Encounter for immunization

== ENCOUNTER → 2025-06-04 09:00 | Outpatient (BNVA) | payer MEDICARE, OTHER, SELFPAY | PROVIDERS: PCP Internal Medicine; Visit Provider Physician Assistant | DX: E11.9 Type 2 diabetes mellitus without complications (principal); Z79.4 Long term (current) use of insulin; E03.9 Hypothyroidism, unspecified; I10 Essential (primary) hypertension; J44.9 Chronic obstructive pulmonary disease, unspecified; N39.41 Urge incontinence; Z23 Encounter for immunization | CPT/HCPCS: 90471; 90662; 99212 ==